=== PATIENT | male | born 1975 | race Caucasian/White ===

== ENCOUNTER 2019-12-07 14:55 | Outpatient (REF) | payer OTHER, SELFPAY ==
[2019-12-07 16:04] LABS: MANUAL DIFF FLAG NO
[2019-12-07 16:07] LABS: Basophils Absolute Auto 0.1 X10*3/uL (0.0-0.2); Basophils Percent Auto 0.6 % (0-2); Eosinophils Absolute Auto 0.2 X10*3/uL (0.0-0.4); Hematocrit 45.7 % (42-52); Hemoglobin 15.9 g/dl (14.0-18.0); Imm Gran Abs Auto 0.03 X10*3/uL (0.00-0.03); Imm Gran Pct Auto 0.3 % (0.0-0.4); Lymphocytes Absolute Auto 4.1 X10*3/uL (1.2-4.9); Lymphocytes Percent Auto 38.7 % (20-40); Mean Corpuscular HGB Conc 34.8 g/dl (31.0-36.0); Mean Corpuscular Hemoglobin 33.1 pg (27.0-33.0); Mean Platelet Volume 9.8 fL (9.4-12.4); Monocytes Absolute Auto 0.9 X10*3/uL (0.1-1.2); Monocytes Percent Auto 8.1 % (2-11); Neutrophils Absolute Auto 5.3 X10*3/uL (2.0-8.3); Neutrophils Percent Auto 50.3 % (45-73); Platelet Count 259 X10*3/uL (160-400); Red Blood Count 4.81 X10*6/uL (4.60-5.80); Red Cell Distribution Width 12.2 % (11.0-16.0); White Blood Count 10.6 X10*3/uL (4.8-10.8)
[2019-12-07 16:29] LABS: Prothrombin Time 11.9 SEC (10.8-13.0)
[2019-12-07 16:42] LABS: Alanine Aminotransferase 74 U/L (0-40); Albumin Level 4.5 g/dL (3.5-5.0); Alkaline Phosphatase 65 U/L (39-117); Aspartate Amino Transferase 33 U/L (5-37); Bilirubin Direct < 0.2 mg/dL (0.0-0.5); Bilirubin Total 0.3 mg/dL (0.0-1.0); Total Protein 7.6 g/dL (6.5-8.0)
[2019-12-13 12:42] LABS: FIB-ALT 65 U/L (9-46); FIB-Alpha-2-Macroglobulin 247 mg/dL (106-279); FIB-Apolipoprotein A1 136 mg/dL (94-176); FIB-GGT 41 U/L (3-95); FIB-Haptoglobin 124 mg/dL (43-212); FIB-Total Bilirubin 0.2 mg/dL (0.2-1.2); Liver Fibrosis Score 0.19; Liver Fibrosis Stage F0; Nec Inflam Act Grade A1; Nec Inflam Act Score 0.35
== END 2019-12-07 14:56 | disposition home or self-care (01) ==
LOC: HO.LAB 14:55
PROVIDERS: PCP Internal Medicine; Visit Provider Internal Medicine
DX: K76.0 Fatty (change of) liver, not elsewhere classified (principal); R94.5 Abnormal results of liver function studies
CPT/HCPCS: 36415; 80076; 81596; 85025; 85610

== ENCOUNTER 2020-08-10 12:53 | Emergency (ER) | payer OTHER, SELFPAY ==
--- NOTE | 2020-08-10 | ECG_ITS ---
Test Reason : CP Blood Pressure : / mmHG Vent. Rate : 061 BPM Atrial Rate : 061 BPM P-R Int : 174 ms QRS Dur : 108 ms QT Int : 384 ms P-R-T Axes : 029 -70 020 degrees QTc Int : 386 ms Normal sinus rhythm Left axis deviation Otherwise normal ECG No previous ECGs available Referred By: Generic ED Physician Electronically Signed By:DAY VIDALES
--- NOTE | ~2020-08-10 | XR_ITS ---
EXAMINATION: XR CHEST CLINICAL INFORMATION: Chest pain COMPARISON: 11/03/2017 TECHNIQUE: 2 views of the chest were obtained. FINDINGS: No significant abnormality is noted involving the heart, lungs, mediastinum, bony thorax or soft tissues. XR/XR chest 2V IMPRESSION: Unremarkable examination.
[2020-08-10 13:16] VITALS: BP 136/83; PULSE 79; RESP 18; TEMP 36.6; O2SAT 97; BMI 30.9
[2020-08-10 15:03] VITALS: BP 136/83; PULSE 69; RESP 18
--- NOTE | 2020-08-10 15:32 | ED.CHESTPAIN ---
HPI - Chest Pain General Chief Complaint: Chest Pain Stated Complaint: chest pain Time Seen by Provider: 08/10/20 14:55 Source: patient Mode of arrival: ambulatory Limitations: no limitations History of Present Illness HPI narrative: 45-year-old male with a past medical history of fatty liver here with complaints of intermittent chest pain for the last 1 month. He tells me these symptoms occur with exertion our nurses stated with diaphoresis, dizziness, nausea. They do resolve with rest after lasting approximately 5 minutes. Today he had an episode while mowing the lawn and became concerned and brought himself into the emergency department. No recent travel, no sick contact, no leg swelling or pain. No family history of sudden cardiac . Receive 2nd COVID vaccine 07/04/2020 Related Data Allergies Allergy/AdvReac Type Severity Reaction Status Date / Time No Known Allergies Allergy Unverified 11/15/19 16:12 [No Known Allergies*] Review of Systems Review of Systems: Yes all other systems are reviewed and are negative Constitutional: Constitutional: Reports no additional constitutional complaints, Denies body ache(s), Denies chills, Denies fever(s), Denies headache(s) and Denies weakness Comments: diaphoresis Eyes: Eyes: Reports no additional eye complaints and Denies change in vision ENT: Reports system reviewed and no additional complaints, except as documented, Denies dizziness, Denies headache(s), Denies nasal congestion, Denies nasal discharge and Denies neck pain Cardiovascular: Cardiovascular: Reports no additional cardiovascular complaints, Reports chest pain, Denies leg edema and Reports dyspnea Respiratory: Respiratory: Reports no additional respiratory complaints, Denies cough and Reports dyspnea Gastrointestinal: Gastrointestinal: Reports no additional gastrointestinal complaints, Denies abdominal pain, Denies diarrhea, Reports nausea and Denies vomiting Genitourinary: Genitourinary: Denies urinary incontinence Musculoskeletal: Musculoskeletal: Reports no additional musculoskeletal complaints, Denies back pain, Denies arthralgias, Denies joint swelling, Denies neck pain, Denies numbness and Denies tingling Integumentary/Breasts: Skin/Breast: Reports system reviewed and no additional complaints, except as docu and Denies rash Neurologic: Reports system reviewed and no additional complaints, except as documented, Denies Abnormal speech present, Denies dizziness, Denies headache(s), Denies numbness, Denies tingling and Denies weakness PMFSH Past Medical History Attestation statement: The following information was validated with the patient. Source: old records reviewed and nursing notes reviewed Medical History Fatty liver Social History Social History Advance Directives: No Advance Directives Information Provided: Yes Physical Exam Vital Signs: Vital Signs: Last Vital Signs Temp 97.8 F 08/10/20 17:40 Pulse 67 08/10/20 17:40 Resp 14 08/10/20 17:40 BP 141/92 H 08/10/20 17:40 Pulse Ox 98 08/10/20 17:40 Body Mass Index 30.9 Const: General: cooperative, healthy appearing, comfortable and no acute distress Orientation/consciousness: patient oriented x3 Limitations: no limitations HENMT: Head: Yes normal to inspection Ears: hearing grossly normal bilaterally General nose exam: Normal external nose present Face and sinus: Yes normal facial exam Mouth: Normal oral and palatal mucosa present Throat: Yes posterior oropharynx normal Eyes: General: appearance normal, both eyes and all related structures Pupils: Equal, round and reactive pupils present Neck: Neck: Yes normal visual inspection Chest: Chest palpation & inspection: normal inspection of the chest Resp: Effort & Inspection: normal respiratory effort Auscultation: clear to auscultation bilaterally Cardio: Rate: regular rate Rhythm: regular rhythm Peripheral pulses: Peripheral pulses 2+ throughout GI: Inspection: Yes normal to inspection Palpation (GI): Soft to palpation and nontender Auscultation: normal bowel sounds Back/Spine/Pelvis: Thoracic/Lumbar Spine: thoracic and lumbar spine normal to inspection Skin: General skin exam: no rashes or lesions noted Neuro: General: patient oriented x3, no focal motor deficits and normal sensation to monofilament Cranial nerves: Yes Equal, round and reactive pupils present Cognition (Neuro): normal cognition Speech: No Abnormal speech present Gait exam (Neuro): Normal gait present Motor exam (neuro): 5/5 motor strength present throughout Extrem: General: Yes normal to inspection, Yes no pedal edema and Yes no calf tenderness Course Course Course Narrative: 45-year-old male here with intermittent chest pain which occurs with exertion and is associated with diaphoresis, dizziness, nausea and shortness of breath and resolved with rest. Had episode today that occurred while mowing the lawn. No symptoms here on arrival. Will check chest x-ray, EKG and labs. 1715-labs show mildly elevated troponin. EKG shows no ischemic changes. Chest x-ray and other labs are unremarkable. Plan for repeat 3 hour troponin. 1900-2nd troponin delta. Discussed case with Dr Gunn. Will recommend cardiology follow-up for stress test. No need for admission as asymptomatic here with unremarkable EKG and unchanged troponin. Reviewed worrisome signs and symptoms and when to return to the emergency department. Comfortable discharge home. MDM - Chest Pain MDM Narrative Medical decision making narrative: ACS Differential Diagnosis Differential diagnosis: Likely atypical chest pain Medical Records Data Attestation: I reviewed the patient's medical records. Lab Data Attestation: I reviewed the patient's lab results. Result diagrams: 08/10/20 15:36 08/10/20 16:28 Labs: Lab Results 08/10/20 08/10/20 08/10/20 Range/Units 15:36 15:36 16:28 WBC 10.5 (4.8-10.8) X10*3/uL RBC 4.96 (4.60-5.80) X10*6/uL Hgb 16.5 (14.0-18.0) g/dl Hct 46.8 (42-52) % MCV 94.4 (80-98) fL MCH 33.3 H (27.0-33.0) pg MCHC 35.3 (31.0-36.0) g/dl RDW 12.7 (11.0-16.0) % Plt Count 261 (160-400) X10*3/uL MPV 9.4 (9.4-12.4) fL Immature Gran % (Auto) 0.4 (0.0-0.4) % Neut % (Auto) 43.5 L (45-73) % Lymph % (Auto) 43.3 H (20-40) % Gillespie % (Auto) 8.9 (2-11) % Eos % (Auto) 3.1 (0-4) % Baso % (Auto) 0.8 (0-2) % Lymph # (Auto) 4.6 (1.2-4.9) X10*3/uL Gillespie # (Auto) 0.9 (0.1-1.2) X10*3/uL Eos # (Auto) 0.3 (0.0-0.4) X10*3/uL Baso # (Auto) 0.1 (0.0-0.2) X10*3/uL Abs Immat Gran (auto) 0.04 H (0.00-0.03) X10*3/uL Absolute Neuts (auto) 4.6 (2.0-8.3) X10*3/uL Absolute Nucleated RBC 0.000 (0.0-0.012) X10*3/uL Nucleated RBC % (auto) 0.0 (0.0-0.2) /100WBC Sodium 142 (135-145) mmol/L Potassium 3.9 (3.3-5.1) mmol/L Chloride 106 (96-108) mmol/L Carbon Dioxide 28 (22-29) mmol/L Anion Gap 12 (12-20) BUN 11 (9-16) mg/dL Creatinine 0.75 (0.5-1.4) mg/dL Estim Creat Clear Calc 122.4 Estimated GFR > 60 Random Glucose 88 (60-115) mg/dL Calcium 9.2 (8.4-10.2) mg/dL Total Bilirubin 0.6 (0.0-1.0) mg/dL Direct Bilirubin 0.2 (0.0-0.5) mg/dL AST 57 H (5-37) U/L ALT 130 H (0-40) U/L Alkaline Phosphatase 69 (39-117) U/L Troponin I High Sens 30.4 (<3.5-35.0) ng/L Total Protein 7.2 (6.5-8.0) g/dL Albumin 4.2 (3.5-5.0) g/dL 08/10/20 Range/Units 18:31 WBC (4.8-10.8) X10*3/uL RBC (4.60-5.80) X10*6/uL Hgb (14.0-18.0) g/dl Hct (42-52) % MCV (80-98) fL MCH (27.0-33.0) pg MCHC (31.0-36.0) g/dl RDW (11.0-16.0) % Plt Count (160-400) X10*3/uL MPV (9.4-12.4) fL Immature Gran % (Auto) (0.0-0.4) % Neut % (Auto) (45-73) % Lymph % (Auto) (20-40) % Gillespie % (Auto) (2-11) % Eos % (Auto) (0-4) % Baso % (Auto) (0-2) % Lymph # (Auto) (1.2-4.9) X10*3/uL Gillespie # (Auto) (0.1-1.2) X10*3/uL Eos # (Auto) (0.0-0.4) X10*3/uL Baso # (Auto) (0.0-0.2) X10*3/uL Abs Immat Gran (auto) (0.00-0.03) X10*3/uL Absolute Neuts (auto) (2.0-8.3) X10*3/uL Absolute Nucleated RBC (0.0-0.012) X10*3/uL Nucleated RBC % (auto) (0.0-0.2) /100WBC Sodium (135-145) mmol/L Potassium (3.3-5.1) mmol/L Chloride (96-108) mmol/L Carbon Dioxide (22-29) mmol/L Anion Gap (12-20) BUN (9-16) mg/dL Creatinine (0.5-1.4) mg/dL Estim Creat Clear Calc Estimated GFR Random Glucose (60-115) mg/dL Calcium (8.4-10.2) mg/dL Total Bilirubin (0.0-1.0) mg/dL Direct Bilirubin (0.0-0.5) mg/dL AST (5-37) U/L ALT (0-40) U/L Alkaline Phosphatase (39-117) U/L Troponin I High Sens 27.0 (<3.5-35.0) ng/L Total Protein (6.5-8.0) g/dL Albumin (3.5-5.0) g/dL Imaging Data Chest x-ray: Attestation: I personally reviewed and interpreted this imaging study as follows: Radiologist's impression: EXAMINATION: XR CHEST CLINICAL INFORMATION: Chest pain COMPARISON: 11/03/2017 TECHNIQUE: 2 views of the chest were obtained. FINDINGS: No significant abnormality is noted involving the heart, lungs, mediastinum, bony thorax or soft tissues. XR/XR chest 2V IMPRESSION: Unremarkable examination. ECG Data ECG #1: Attestation: I personally reviewed and interpreted this ECG as follows: ECG interpretation date: 08/10/20 ECG interpretation time: 13:23 Interpretation: NSR with rate 61, normal pr, normal qrs, normal qtc Discharge Plan Discharge Clinical Impression: Atypical chest pain Patient Disposition: Home, Self-Care Instructions: Chest Pain (ED) Additional Instructions: Call Cardiology tomorrow for follow-up appointment. You need outpatient stress test done. Your EKG, chest x-ray and lab work all looks good today Referrals: Anjum Blunt MD [Physician] - 2 days
[2020-08-10 15:40] LABS: MANUAL DIFF FLAG NO
[2020-08-10 15:44] LABS: Basophils Absolute Auto 0.1 X10*3/uL (0.0-0.2); Basophils Percent Auto 0.8 % (0-2); Eosinophils Absolute Auto 0.3 X10*3/uL (0.0-0.4); Eosinophils Percent Auto 3.1 % (0-4); Hematocrit 46.8 % (42-52); Hemoglobin 16.5 g/dl (14.0-18.0); Imm Gran Abs Auto 0.04 X10*3/uL (0.00-0.03); Imm Gran Pct Auto 0.4 % (0.0-0.4); Lymphocytes Absolute Auto 4.6 X10*3/uL (1.2-4.9); Lymphocytes Percent Auto 43.3 % (20-40); Mean Corpuscular HGB Conc 35.3 g/dl (31.0-36.0); Mean Corpuscular Hemoglobin 33.3 pg (27.0-33.0); Mean Corpuscular Volume 94.4 fL (80-98); Mean Platelet Volume 9.4 fL (9.4-12.4); Monocytes Absolute Auto 0.9 X10*3/uL (0.1-1.2); Monocytes Percent Auto 8.9 % (2-11); Neutrophils Absolute Auto 4.6 X10*3/uL (2.0-8.3); Neutrophils Percent Auto 43.5 % (45-73); Platelet Count 261 X10*3/uL (160-400); Red Blood Count 4.96 X10*6/uL (4.60-5.80); Red Cell Distribution Width 12.7 % (11.0-16.0); White Blood Count 10.5 X10*3/uL (4.8-10.8)
[2020-08-10 16:21] LABS: Troponin-I High Sensitivity 30.4 ng/L (<3.5-35.0)
[2020-08-10 17:01] LABS: Alanine Aminotransferase 130 U/L (0-40); Albumin Level 4.2 g/dL (3.5-5.0); Alkaline Phosphatase 69 U/L (39-117); Anion Gap 12 (12-20); Aspartate Amino Transferase 57 U/L (5-37); Bilirubin Direct 0.2 mg/dL (0.0-0.5); Bilirubin Total 0.6 mg/dL (0.0-1.0); Blood Urea Nitrogen 11 mg/dL (9-16); Calcium 9.2 mg/dL (8.4-10.2); Carbon Dioxide 28 mmol/L (22-29); Chloride 106 mmol/L (96-108); Creatinine Clr Calc Pharmacy 122.4; Estimated Glomerular Filt Rate > 60; Glucose Random 88 mg/dL (60-115); Potassium 3.9 mmol/L (3.3-5.1); Sodium 142 mmol/L (135-145); Total Protein 7.2 g/dL (6.5-8.0)
[2020-08-10 17:40] VITALS: BP 141/92; PULSE 67; RESP 14; TEMP 36.6; O2SAT 98
[2020-08-10 19:20] VITALS: BP 130/88; PULSE 61; RESP 15; TEMP 36.9; O2SAT 97
== END 2020-08-10 19:51 | disposition home or self-care (01) ==
PROVIDERS: Nurse Practitioner Family; Emergency Provider Emergency Medicine Emergency Medical Services; PCP Internal Medicine
DX: R07.89 Other chest pain (principal)
CPT/HCPCS: 36415; 71046; 80048; 80076; 84484; 85025; 93005; 99283; 99284

== ENCOUNTER → 2020-09-03 13:51 | Outpatient (BNVA) | payer OTHER, SELFPAY | PROVIDERS: PCP Internal Medicine; Referring Provider Internal Medicine; Visit Provider Internal Medicine Cardiovascular Disease | DX: R07.9 Chest pain, unspecified (principal) | CPT/HCPCS: 99202 ==

== ENCOUNTER → 2020-09-04 09:14 | Outpatient (REF) | payer OTHER, SELFPAY ==
--- NOTE | 2020-09-04 09:19 | CA_ITS ---
Acquisition Time: 2020-09-04 09:20:56 Total Exercise Time: 00:12:00 Test Indications: CHEST PAIN Medications: METOPROLOL Protocol: BREANNA Max HR: 151 BPM 85% of Pred: 177 BPM Max BP: 172/086 mmHG Max Work Load: 13.4 METS Exercise stress test with exercise 12 min of Breanna protocol ( while jogging all of stage 4) achieving 85% MPHR, without anginal symptoms, with 3 isolated PVCs near peak exercise, with normotensive response to exercise, without EKG changes meeting criteria for ischemia. Test reviewed with Dr Blunt. Referred By: Anjum Blunt Overread By: MARA CAVANAUGH
== END ==
LOC: HO.CARD 09:14
PROVIDERS: PCP Internal Medicine; Visit Provider Internal Medicine Cardiovascular Disease
DX: R07.9 Chest pain, unspecified (principal)
CPT/HCPCS: 93017

== ENCOUNTER → 2020-10-15 09:12 | Outpatient (REF) | payer OTHER, SELFPAY ==
--- NOTE | 2020-10-15 09:18 | CA_ITS ---
Transthoracic Echocardiogram Patient (Last, First, Middle): Leonel Abbott Manuel Gender: Male Date of : 1975 Age: 45 Procedure Date: 10/15/2020 Procedure Type: Transthoracic Echocardiogram Location: OP Height: 162.56 cm Weight: 79.38 kg BSA: 1.85 m2 Heart Rate: bpm BP: 134 / 80 mmHg External Grinder: Referring MD: Anjum Blunt MD Symptoms: R07.9 - Chest pain, unspecified Study Quality: Good ECG Rhythm: Sinus Conclusions: - The left ventricular systolic function is normal. The calculated ejection fraction is 59% by biplane method. - No obvious valvular pathology seen on this study. Findings Left Ventricle Normal left ventricular cavity size. There is mildly increased left ventricular wall thickness. The left ventricular systolic function is normal. The calculated ejection fraction is 59% by biplane method. There is no evidence of regional wall motion abnormalities. Diastolic function is normal for age. Right Ventricle Normal right ventricular cavity size and systolic function. Atria Both atria are normal in size. Aortic Valve There is a normal trileaflet aortic valve. There is no aortic valve stenosis. There is trace (trivial) aortic valve regurgitation. Mitral Valve The mitral valve appears normal. There is trace mitral valve regurgitation. There is no mitral valve stenosis. Pulmonic Valve The pulmonic valve is likely normal. There is trace pulmonic valve regurgitation. Tricuspid Valve Normal tricuspid valve structure. There is trace tricuspid valve regurgitation. The pulmonary artery systolic pressure is normal. Great Vessels The aortic annulus, sinuses of valsalva, and asc aorta are normal in size. Venous The inferior vena cava is normal in size and collapses greater than 50% with inspiration. Pericardium/Pleural There is no evidence of pericardial effusion. Prior Study Comparison No prior study available for comparison. Recommendations, Care & Conclusions No obvious valvular pathology seen on this study. Measurements 2D Linear Measurements IVSd: 1.11 0.6-0.9/0.6-1.0 cm LVIDd: 4.54 3.9-5.3/4.2-5.9 cm LVIDd Index: 2.45 2.4-3.2/2.2-3.1 cm/m2 LVIDs: 2.81 2.0-3.6 cm LVPWd: 1.06 0.7-1.1 cm Ao Root: 2.90 2.1-3.5 cm LA Diam: 4.40 2.7-3.8/3.0-4.0 cm LAIDs Index: 2.38 1.5-2.3 cm/m2 LV Mass: 216.88 67-162/88-224 g LV Mass Index: 117.23 43-95/49-115 g/m2 LVOT Diam: 2.00 3.0+(-)1.3 cm 2D Systolic Function EF 4C: 58.90 >55% EF 2C: 63.10 >55% EF BiP: 59.20 >55% Mitral Valve MV Pk E: 0.87 MV PK A: 0.60 MV Decel Time: 180.00 E/A: 1.50 E'Lateral: 14.60 E'Medial: 8.16 E/E' Med: 10.70 E/E' Lat: 6.00 PHT: 53.00 MVA PHT: 4.15 Decel Trinity: 4.84 Aortic Valve AoV Pk Tej: 1.48 AoV Mn Tej: 0.97 AoV VTI: 0.32 AoV Pk Grad: 9.00 Aov Mn Grad: 4.00 DANIE Cont.VTI: 2.23 LVOT LVOT Pk Tej: 1.00 LVOT Mn Tej: 0.71 LVOT VTI: 0.22 LVOT Pk Grad: 4.00 LVOT Mn Grad: 2.00 LVOT Diam: 2.00 LVOT Area: 3.14 Diastolic Function MV Pk E: 0.87 MV Pk A: 0.60 E/A: 1.50 E'Medial: 8.16 E/E' Med: 10.70 E' Laterial: 14.60 E/E' Lat: 6.00 Right Ventricle TAPSE (mm): 24.00 TVS' Tej: 12.00 Tricuspid Valve TR Pk Tej: 2.23 TR Pk Grad: 20.00 RA Press: 3.00 RVSP: 23.00 Great Vessels Aorta Ao Root-2D: 2.90 2.0-3.7 cm Ao Asc: 3.00 2.1-3.4 cm Pulmonary Valve PV Pk Tej: 1.05 Peak PV Grad: 4.00 Updated in Other Vendor System with Status of Final Monico Beatty MD electronically signed on 10/16/2020 12:31:02 PM with status of Final
== END ==
LOC: HO.CARD 09:12
PROVIDERS: PCP Internal Medicine; Visit Provider Internal Medicine Cardiovascular Disease
DX: R07.9 Chest pain, unspecified (principal)
CPT/HCPCS: 93306

== ENCOUNTER 2021-05-25 11:27 | Emergency (ER) | payer OTHER, SELFPAY ==
[2021-05-25 12:59] VITALS: BP 143/66; PULSE 59; RESP 18; O2SAT 100; BMI 29.1
--- NOTE | 2021-05-25 13:09 | ED.MALEGU ---
HPI - Male Genitourinary General Chief complaint: Urogenital-Male Stated complaint: PAINFULL UPON URINATION Time Seen by Provider: 05/25/21 13:02 Source: patient Mode of arrival: ambulatory Limitations: no limitations History of Present Illness HPI Narrative: Patient is a 46 year old male presenting to the emergency department today with painful urination. Patient states that approximately 1 month ago, he was seen for urinary issues and was told he had an infection and took some pills for a little while. Patient states that now he is having pain with urination. Patient denies any dizziness, lightheadedness, abdominal pain, nausea, vomiting, fever, chills, blurry vision, double vision, loss of vision, chest pain, difficulty breathing, shortness of breath, back pain, night sweats, increased urinary frequency, increased urinary urgency, blood in his urine or stool, syncope or a near syncopal episode, recent trauma or falls, bowel incontinence, bladder incontinence, bowel retention, bladder retention, or any other complaints at this time. MD Complaint: dysuria Onset (ago): day(s) Duration: constant Severity: mild Severity scale (1-10): 3 Quality: sharp Relieving factors: none Exacerbating factors: none Associated symptoms: Reports denies other symptoms Related Data Sexually active: No Home Medications Medication Instructions Recorded Confirmed ursodiol 300 mg capsule 600 mg PO BID 09/03/20 09/03/20 Previous Rx's Medication Instructions Recorded metoprolol succinate 25 mg 25 mg PO DAILY 90 Days #90 tab 09/25/20 tablet,extended release 24 hr cephalexin 500 mg capsule 500 mg PO Q6H 7 Days #28 cap 05/25/21 Allergies Allergy/AdvReac Type Severity Reaction Status Date / Time No Known Allergies Allergy Unverified 11/15/19 16:12 [No Known Allergies*] Review of Systems Constitutional: Constitutional: Reports no additional constitutional complaints, Denies chills, Denies fever(s) and Denies night sweats Eyes: Eyes: Reports no additional eye complaints, Denies blurry vision, Denies change in vision, Denies diplopia, Denies eye discharge, Denies loss of vision and Denies eye pain ENT: Denies dizziness Cardiovascular: Cardiovascular: Reports no additional cardiovascular complaints, Denies chest pain, Denies lightheadedness, Denies Loss of Consciousness and Denies dyspnea Respiratory: Respiratory: Reports no additional respiratory complaints and Denies dyspnea Gastrointestinal: Gastrointestinal: Reports no additional gastrointestinal complaints, Denies abdominal pain, Denies melena, Denies hematochezia, Denies change in bowel habits and Denies change in stool character Genitourinary: Genitourinary: Reports no additional male genitourinary complaints, Denies hematuria, Denies oliguria, Denies difficulty urinating, Reports dysuria, Denies urinary frequency, Denies urinary hesitancy, Denies urinary incontinence and Denies urinary urgency Musculoskeletal: Musculoskeletal: Reports no additional musculoskeletal complaints, Denies numbness and Denies tingling Neurologic: Denies dizziness, Denies loss of vision, Denies numbness and Denies tingling Psychiatric: Psychiatric: Reports no additional psychiatric complaints Endocrine: Endocrine: Reports no additional endocrine complaints Hematologic/Lymphatic: Hematologic/Lymphatic: Reports no additional hematologic/lymphatic complaints Allergic/Immunologic: Allergic/Immunologic: Reports no additional allergic/immunologic complaints PMFSH Past Medical History Attestation statement: The following information was validated with the patient. Source: old records reviewed Medical History Fatty liver Surgical History Hx of knee surgery Family History Family History Father HTN (hypertension) Mother HTN (hypertension) Social History Social History Patient Tobacco Use Status: Never used Tobacco Advance Directives: No Advance Directives Information Provided: No Physical Exam Vital Signs: Vital Signs: Last Vital Signs Pulse 59 05/25/21 12:59 Resp 18 05/25/21 12:59 BP 143/66 H 05/25/21 12:59 Pulse Ox 100 05/25/21 12:59 BMI result Body Mass Index 29.1 Const: General: cooperative, no acute distress, alert and awake Nutritional Appearance: well nourished Orientation/consciousness: patient oriented x3 Limitations: no limitations HEENT: Head: Yes normal to inspection and Yes atraumatic Ears: hearing grossly normal bilaterally and external ears normal General nose exam: Normal external nose present, no nasal discharge noted and no epistaxis Face and sinus: Yes normal facial exam, No abrasion and No laceration Mouth: Normal oral and palatal mucosa present, no drooling and no muffled voice Eyes: General: appearance normal, both eyes and all related structures Periorbital: periorbital findings normal Eyelids: Yes eyelids normal Conjunctivae: conjunctivae normal Pupils: Equal, round and reactive pupils present EOM: EOMs intact bilaterally Neck: Neck: Yes normal visual inspection, Yes full ROM and Yes no lymphadenopathy Chest: Chest palpation & inspection: normal inspection of the chest Resp: Effort & Inspection: normal respiratory effort and able to speak in complete sentences Auscultation: clear to auscultation bilaterally Cardio: Rate: regular rate Rhythm: regular rhythm GI: Inspection: Yes normal to inspection : Male General Exam: Yes normal external exam Penis: normal penis Neuro: General: patient oriented x3 and moves all extremities Cranial nerves: Yes Equal, round and reactive pupils present Cognition (Neuro): normal cognition Motor exam (neuro): 5/5 motor strength present throughout Sensory Exam: Normal double simultaneous stimulation for sensation Coordination: [id number] test normal Extrem: General: Yes normal to inspection, Yes full ROM and Yes capillary refill normal Psych: Appearance: grossly normal Mental Status: mental status grossly normal Affect: normal affect Attitude: cooperative Thought process: Normal thought process present Thought content: Normal thought content present Insight: Good insight present (Psych) MDM - Male Genitourinary MDM Narrative Medical decision making narrative: Patient is a 46 year old male presenting to the emergency department today with painful urination. Patient's physical exam was unremarkable. Patient's urine showed an acute UTI. I explained my physical exam findings as well as all test results to the patient. I answered all questions asked by the patient. I stressed the importance of the patient taking his medication as prescribed. I stressed the importance of the patient following up with his primary care provider and a urologist. I stressed the importance of the patient returning to the emergency department immediately if his symptoms were to worsen or if he were to develop any dizziness, shortness of breath, difficulty breathing, chest pain, blurry vision, loss of vision, nausea, vomiting, abdominal pain, fever, chills, back pain, or any other complaints. Patient verbalized agreement and understanding with this treatment plan and discharge. Differential Diagnosis Differential diagnosis: Likely urinary tract infection Medical Records Attestation: I reviewed the patient's medical records. Lab Data Attestation: I reviewed the patient's lab results. Labs: Lab Results 05/25/21 Range/Units 13:07 Urine Color STRAW Urine Appearance CLEAR Urine pH 6.0 (5.0-8.0) Ur Specific [place] 1.015 (1.005-1.025) Urine Protein NEG (NEG-TRACE) MG/DL Urine Glucose (UA) NEG (NEG) MG/DL Urine Ketones NEG (NEG) MG/DL Urine Blood NEG (NEG) Urine Nitrite NEG (NEG) Ur Leukocyte Esterase TRACE H (NEG) Urine RBC 0 (0) /HPF Urine WBC 1-4 (0-4) /HPF Ur Squamous Epith Cells TRACE /LPF Urine Bacteria 1+ /LPF Discharge Plan Discharge Clinical Impression: Urinary tract infection Patient Disposition: Home, Self-Care Instructions: Urinary Tract Infection in Men (DC) Additional Instructions: Follow up with your primary care provider. Return to the emergency department immediately if your symptoms worsen or if you develop any dizziness, shortness of breath, difficulty breathing, chest pain, blurry vision, loss of vision, nausea, vomiting, abdominal pain, fever, chills, back pain, or any other complaints. Prescriptions: New cephalexin 500 mg capsule 500 mg PO Q6H 7 Days Qty: 28 0RF No Action metoprolol succinate 25 mg tablet extended release 24 hr 25 mg PO DAILY 90 Days Qty: 90 1RF ursodiol 300 mg capsule 600 mg PO BID 0RF Referrals: Pablo Gaston MD [Physician] - 2 days Patrick Moody III, MD [Primary Care Provider] - 2 days Interventions: ED Discharge Assessment Last Done: 05/25/21 13:56 Discharge Date/Time: 05/25/21 13:57 Print Language: Albanian
[2021-05-25 13:12] LABS: Appearance Urine CLEAR; Color Urine STRAW; Glucose Urine UA NEG (NEG); Leukocyte Esterase Urine TRACE (NEG); Nitrite Urine NEG (NEG); Specific Gravity - Urine 1.015 (1.005-1.025); UACC Culture Trigger YES; Urine Blood NEG (NEG); Urine Ketones NEG (NEG); Urine Protein NEG (NEG-TRACE)
[2021-05-25 13:26] LABS: Bacteria Urine 1+ /LPF; RBC Urine 0 /HPF (0); Squamous Epithelial Cell Urine TRACE /LPF
== END 2021-05-25 13:57 | disposition home or self-care (01) ==
PROVIDERS: Emergency Provider Emergency Medicine; PCP Internal Medicine
DX: N39.0 Urinary tract infection, site not specified (principal); R30.0 Dysuria
CPT/HCPCS: 81001; 87086; 87088; 87186; 99283; 99284

== ENCOUNTER 2021-05-29 08:57 | Outpatient (REF) | payer OTHER, SELFPAY ==
[2021-05-29 09:29] LABS: MANUAL DIFF FLAG NO
[2021-05-29 09:48] LABS: Basophils Absolute Auto 0.1 X10*3/uL (0.0-0.2); Basophils Percent Auto 0.9 % (0-2); Eosinophils Absolute Auto 0.3 X10*3/uL (0.0-0.4); Eosinophils Percent Auto 3.5 % (0-4); Hematocrit 44.1 % (42.0-52.0); Hemoglobin 15.5 g/dl (14.0-18.0); Imm Gran Abs Auto 0.04 X10*3/uL (0.00-0.03); Imm Gran Pct Auto 0.4 % (0.0-0.4); Lymphocytes Absolute Auto 4.2 X10*3/uL (1.2-4.9); Lymphocytes Percent Auto 45.1 % (20-40); Mean Corpuscular HGB Conc 35.1 g/dl (31.0-36.0); Mean Corpuscular Volume 93.8 fL (80.0-98.0); Mean Platelet Volume 9.1 fL (9.4-12.4); Monocytes Absolute Auto 0.7 X10*3/uL (0.1-1.2); Monocytes Percent Auto 7.3 % (2-11); Neutrophils Percent Auto 42.8 % (45-73); Platelet Count 256 X10*3/uL (160-400); Red Cell Distribution Width 12.6 % (11.0-16.0); White Blood Count 9.4 X10*3/uL (4.8-10.8)
[2021-05-29 09:53] LABS: Prothrombin Time 11.7 SEC (9.9-13.0)
[2021-05-29 10:27] LABS: Alanine Aminotransferase 110 U/L (0-40); Albumin Level 4.1 g/dL (3.5-5.0); Alkaline Phosphatase 60 U/L (39-117); Aspartate Amino Transferase 51 U/L (5-37); Bilirubin Direct 0.2 mg/dL (0.0-0.5); Bilirubin Total 0.6 mg/dL (0.0-1.0); Total Protein 7.2 g/dL (6.5-8.0)
[2021-06-04 18:17] LABS: FIB-ALT 92 U/L (9-46); FIB-Alpha-2-Macroglobulin 275 mg/dL (106-279); FIB-Apolipoprotein A1 145 mg/dL (94-176); FIB-GGT 48 U/L (3-95); FIB-Haptoglobin 149 mg/dL (43-212); FIB-Total Bilirubin 0.5 mg/dL (0.2-1.2); Liver Fibrosis Score 0.34; Liver Fibrosis Stage F1-F2; Nec Inflam Act Grade A2; Nec Inflam Act Score 0.55
== END 2021-05-29 08:58 | disposition home or self-care (01) ==
LOC: HO.LAB 08:57
PROVIDERS: PCP Internal Medicine; Visit Provider Internal Medicine
DX: R79.89 Other specified abnormal findings of blood chemistry (principal)
CPT/HCPCS: 36415; 80076; 81596; 85025; 85610

== ENCOUNTER 2021-06-18 06:51 | Outpatient (REF) | payer OTHER, SELFPAY ==
[2021-06-18 07:03] LABS: MANUAL DIFF FLAG NO
[2021-06-18 07:39] LABS: Basophils Absolute Auto 0.1 X10*3/uL (0.0-0.2); Basophils Percent Auto 1.9 % (0-2); Eosinophils Absolute Auto 0.3 X10*3/uL (0.0-0.4); Eosinophils Percent Auto 4.6 % (0-4); Hematocrit 47.7 % (42.0-52.0); Hemoglobin 16.5 g/dl (14.0-18.0); Imm Gran Abs Auto 0.02 X10*3/uL (0.00-0.03); Imm Gran Pct Auto 0.3 % (0.0-0.4); Lymphocytes Absolute Auto 2.6 X10*3/uL (1.2-4.9); Lymphocytes Percent Auto 37.7 % (20-40); Mean Corpuscular HGB Conc 34.6 g/dl (31.0-36.0); Mean Corpuscular Hemoglobin 32.7 pg (27.0-33.0); Mean Corpuscular Volume 94.6 fL (80.0-98.0); Mean Platelet Volume 9.3 fL (9.4-12.4); Monocytes Absolute Auto 0.8 X10*3/uL (0.1-1.2); Monocytes Percent Auto 12.2 % (2-11); Neutrophils Percent Auto 43.3 % (45-73); Platelet Count 282 X10*3/uL (160-400); Red Blood Count 5.04 X10*6/uL (4.60-5.80); Red Cell Distribution Width 12.3 % (11.0-16.0); White Blood Count 6.8 X10*3/uL (4.8-10.8)
[2021-06-18 07:44] LABS: Prothrombin Time 11.8 SEC (9.9-13.0)
[2021-06-18 07:46] LABS: Partial Thromboplastin Time 44.9 SEC (24.1-38.0)
[2021-06-18 08:04] LABS: Alanine Aminotransferase 120 U/L (0-40); Albumin Level 4.6 g/dL (3.5-5.0); Alkaline Phosphatase 67 U/L (39-117); Aspartate Amino Transferase 60 U/L (5-37); Bilirubin Direct 0.2 mg/dL (0.0-0.5); Bilirubin Total 0.5 mg/dL (0.0-1.0); Total Protein 8.1 g/dL (6.5-8.0)
== END 2021-06-18 06:52 | disposition home or self-care (01) ==
LOC: HO.LAB 06:51
PROVIDERS: PCP Internal Medicine; Visit Provider Internal Medicine
DX: K76.0 Fatty (change of) liver, not elsewhere classified (principal); R74.8 Abnormal levels of other serum enzymes
CPT/HCPCS: 36415; 80076; 85025; 85610; 85730

== ENCOUNTER 2021-06-25 07:03 | Day surgery (SDC) | payer OTHER, SELFPAY ==
[2021-06-25] VITALS (7 sets, daily range): BP systolic 102–115; BP diastolic 50–70; PULSE 50–74; RESP 16–18; TEMP 36.2–36.8; O2SAT 95–99; BMI 29.9
--- NOTE | ~2021-06-25 | US_ITS ---
EXAMINATION: US COMPLETE ABDOMEN WITH LIVER ELASTOGRAPHY CLINICAL INFORMATION: Elevated liver enzymes, fatty liver. COMPARISON: None. TECHNIQUE: Real-time imaging of the abdominal viscera. Noninvasive ultrasound liver fibrosis assessment is performed using Marina Elast[employer] point quantification shear wave elastography (2D-SWE) with a C5-2 MHz transducer. Multiple elastography samples are obtained. FINDINGS: PANCREAS: Most of the pancreas is obscured by overlying gas. ABDOMINAL AORTA: The proximal, middle, and distal aortic segments are normal in caliber. INFERIOR VENA CAVA: Visualized portions are normal. LIVER: The liver demonstrates normal size, contour and increased echogenicity. There is mild heterogeneity seen adjacent to the gallbladder likely focal fatty sparing. No focal lesion or intrahepatic biliary duct dilatation. The right lobe measures 17.1 cm in length. The left lobe measures 13.1 cm in length. Portal flow is hepatopedal. Shear wave liver elastography median stiffness is 1.93 m/s (reference: normal median stiffness is 1.3 m/s or less). IQR/median stiffness to assess sampling precision is 0.07 (reference: good quality data set is IQR/median stiffness of 0.15 or less). GALLBLADDER: Normal. The gallbladder is physiologically distended without evidence of stones, sludge, polyps, wall thickening or pericholecystic fluid. COMMON BILE DUCT: Normal in caliber measuring 0.25 cm in diameter. RIGHT KIDNEY: Normal. No hydronephrosis. No renal calculi or focal parenchymal lesions. The kidney measures 13.3 cm in maximum dimension. LEFT KIDNEY: Normal. No hydronephrosis. No renal calculi or focal parenchymal lesions. The kidney measures 11.6 cm in maximum dimension. SPLEEN: Normal. The spleen measures 9.8 cm in maximum dimension. FREE FLUID: None. US/US abdomen comp w elastography IMPRESSION: 1. Diffuse hepatic steatosis with mild hyperechoic and heterogeneous area adjacent to gallbladder likely focal fatty sparing. The pancreas is obscured by gas. Rest of the visualized ultrasound exam is unremarkable. 2. Liver elastography: Median liver stiffness 1.93 m/s corresponds to cACLD (suggestive). REFERENCE: Society of Radiologists in Ultrasound Liver Stiffness Thresholds (2020): LIVER STIFFNESS THRESHOLDS: *Liver Stiffness equal or less than 1.3 m/s: High probability of being normal. *Liver Stiffness less than 1.7 m/s: In the absence of other known clinical signs, rules out compensated advanced chronic liver disease. *Liver Stiffness 1.7-2.1 m/s: Suggestive of compensated advanced chronic liver disease but need further test for confirmation. *Liver Stiffness over 2.1 m/s: Rules in compensated advanced chronic liver disease. *Liver Stiffness over 2.4 m/s: Suggestive of clinically significant portal hypertension. QUALITY OF DATA SET: *IQR/Median value equal or less than 0.15 implies a quality data set. *IQR/Median value over 0.15 implies a poor quality data set. SIGNIFICANT CHANGE FROM PRIOR EXAM: Significant change if liver stiffness measurement is 10% or greater from prior exam. OTHER CONSIDERATIONS: The stage of liver fibrosis may be overestimated in the setting of acute hepatitis, liver inflammation, elevated liver function tests, hepatic vascular congestion, obstructive cholestasis, non-fasting state, and infiltrative diseases such as amyloidosis and lymphoma. In some patients with NAFLD, the liver stiffness thresholds for compensated advanced chronic liver disease may be lower. In causes other than viral hepatitis and NAFLD, liver stiffness thresholds are not well established.
--- NOTE | ~2021-06-25 | US_ITS ---
EXAMINATION: US GUIDED LIVER CORE BIOPSY CLINICAL INFORMATION: Elevated liver enzymes and fatty liver. COMPARISON: 05/15/2019 TECHNIQUE: Ultrasound-guided core liver biopsy. FINDINGS: Informed consent was obtained from the patient prior to the procedure. During this process, the procedure and potential alternatives were explained, along with the intended outcome and benefits. The risks of the procedure, as well as the risk of not doing the procedure, were discussed. The patient was given the opportunity to ask questions regarding the procedure and appeared competent to make medical decisions. A signed consent form which documents this discussion was placed in the medical record. Using sterile technique and ultrasound guidance a 17-gauge guiding needle was directed into the left lobe of liver from an anterior approach. Three 18-gauge core samples were then obtained from the left lobe of liver. Patient tolerated procedure without difficulty. No post biopsy subcapsular collection or hematoma appreciated. US/US biopsy liver IMPRESSION: Ultrasound-guided liver core biopsy as described.
[2021-06-25 08:07] LABS: MANUAL DIFF FLAG NO
[2021-06-25 08:09] LABS: Basophils Absolute Auto 0.1 X10*3/uL (0.0-0.2); Basophils Percent Auto 1.8 % (0-2); Eosinophils Absolute Auto 0.5 X10*3/uL (0.0-0.4); Hematocrit 43.6 % (42.0-52.0); Hemoglobin 15.1 g/dl (14.0-18.0); Imm Gran Abs Auto 0.02 X10*3/uL (0.00-0.03); Imm Gran Pct Auto 0.3 % (0.0-0.4); Lymphocytes Absolute Auto 2.3 X10*3/uL (1.2-4.9); Lymphocytes Percent Auto 33.2 % (20-40); Mean Corpuscular HGB Conc 34.6 g/dl (31.0-36.0); Mean Corpuscular Hemoglobin 32.6 pg (27.0-33.0); Mean Corpuscular Volume 94.2 fL (80.0-98.0); Monocytes Absolute Auto 0.7 X10*3/uL (0.1-1.2); Monocytes Percent Auto 9.9 % (2-11); Neutrophils Absolute Auto 3.3 x10*3/uL (2.0-8.3); Neutrophils Percent Auto 47.8 % (45-73); Platelet Count 243 X10*3/uL (160-400); Red Blood Count 4.63 X10*6/uL (4.60-5.80); Red Cell Distribution Width 12.3 % (11.0-16.0); White Blood Count 6.8 X10*3/uL (4.8-10.8)
[2021-06-25 08:15] LABS: INTERNATIONAL NORM RATIO 1.1 (0.9-1.1); Prothrombin Time 12.3 SEC (9.9-13.0)
[2021-06-25 08:17] LABS: Partial Thromboplastin Time 42.4 SEC (24.1-38.0)
[2021-06-25] MEDS: Lidocaine HCl 1 % MPF 5 ML VIAL SUBCUT (10:21)
== END 2021-06-25 13:10 | disposition home or self-care (01) ==
LOC: HO.SSS 07:04
PROVIDERS: PCP Internal Medicine; Visit Provider Radiology Diagnostic Radiology
DX: R74.8 Abnormal levels of other serum enzymes (principal); K75.81 Nonalcoholic steatohepatitis (NASH); K76.0 Fatty (change of) liver, not elsewhere classified; E78.00 Pure hypercholesterolemia, unspecified; J45.909 Unspecified asthma, uncomplicated
CPT/HCPCS: 36415; 47000; 76705; 76942; 76981; 85025; 85610; 85730; 88307; 88313; 99152; J2250; J3010

== ENCOUNTER → 2021-07-09 11:10 | Outpatient (BNVA) | payer OTHER, SELFPAY | PROVIDERS: PCP Internal Medicine | DX: R30.0 Dysuria (principal) | CPT/HCPCS: 99202 ==

== ENCOUNTER 2021-07-10 10:22 | Outpatient (REF) | payer OTHER, SELFPAY ==
[2021-07-10 12:02] LABS: Prostate Specific Antigen 0.83 ng/mL (<0.05-4.0)
== END 2021-07-10 10:23 | disposition home or self-care (01) ==
LOC: HO.LAB 10:22
PROVIDERS: PCP Internal Medicine
DX: Z12.5 Encounter for screening for malignant neoplasm of prostate (principal); R30.0 Dysuria
CPT/HCPCS: 36415; 84153

== ENCOUNTER 2021-09-22 06:03 | Outpatient (REF) | payer OTHER, SELFPAY ==
[2021-09-22 06:08] LABS: MANUAL DIFF FLAG NO
[2021-09-22 07:31] LABS: Basophils Absolute Auto 0.1 X10*3/uL (0.0-0.2); Basophils Percent Auto 0.8 % (0-2); Eosinophils Absolute Auto 0.4 X10*3/uL (0.0-0.4); Eosinophils Percent Auto 4.6 % (0-4); Hematocrit 44.9 % (42.0-52.0); Hemoglobin 15.8 g/dl (14.0-18.0); Imm Gran Abs Auto 0.03 X10*3/uL (0.00-0.03); Imm Gran Pct Auto 0.4 % (0.0-0.4); Lymphocytes Absolute Auto 3.4 X10*3/uL (1.2-4.9); Lymphocytes Percent Auto 41.6 % (20-40); Mean Corpuscular HGB Conc 35.2 g/dl (31.0-36.0); Mean Corpuscular Hemoglobin 32.8 pg (27.0-33.0); Mean Corpuscular Volume 93.3 fL (80.0-98.0); Mean Platelet Volume 10.1 fL (9.4-12.4); Monocytes Absolute Auto 0.6 X10*3/uL (0.1-1.2); Monocytes Percent Auto 6.9 % (2-11); Neutrophils Absolute Auto 3.8 x10*3/uL (2.0-8.3); Neutrophils Percent Auto 45.7 % (45-73); Platelet Count 256 X10*3/uL (160-400); Red Blood Count 4.81 X10*6/uL (4.60-5.80); Red Cell Distribution Width 12.4 % (11.0-16.0); White Blood Count 8.3 X10*3/uL (4.8-10.8)
[2021-09-22 07:36] LABS: Prothrombin Time 11.5 SEC (10.0-13.1)
[2021-09-22 08:02] LABS: Alanine Aminotransferase 73 U/L (0-40); Albumin Level 4.1 g/dL (3.5-5.0); Alkaline Phosphatase 65 U/L (39-117); Aspartate Amino Transferase 38 U/L (5-37); Bilirubin Direct 0.2 mg/dL (0.0-0.5); Bilirubin Total 0.8 mg/dL (0.0-1.0); Total Protein 7.3 g/dL (6.5-8.0)
== END 2021-09-22 06:04 | disposition home or self-care (01) ==
LOC: HO.LAB 06:03
PROVIDERS: PCP Internal Medicine; Visit Provider Internal Medicine
DX: K76.0 Fatty (change of) liver, not elsewhere classified (principal); K74.00 Hepatic fibrosis, unspecified
CPT/HCPCS: 36415; 80076; 85025; 85610

== ENCOUNTER 2021-10-22 10:06 | Outpatient (AMB) | payer OTHER, SELFPAY ==
--- NOTE | 2021-10-21 14:36 | MHC.OFFVIS ---
Intake Intake Visit Reasons: 3 month follow up psa Intake Note: Patient is present for psa/dysuria follow up Accompanied by: Self / Same As Patient Allergies No Known Allergies [No Known Allergies*] Allergy (Verified 03/03/22 14:39) HPI HPI Comments History of Present Illness Details Leonel is a pleasant male. He is a patient of Dr. Moody. He is seen for the following urologic conditions - recurring UTI Telemedicine evaluation 15 minute consultation [employer] rommel Video attempted Urinary urgency and frequency Prior therapy for urinary tract infection treated with Bactrim Pansensitive E coli PSA 07/19 0.8 PFSH Medical History (Updated 04/22/22 @ 12:43 by Krysten Rubio, RN) Hyperlipidemia Asthma Dysuria Fatty liver Surgical History (Updated 04/22/22 @ 12:43 by Krysten Rubio, CARLOS) H/O esophagogastroduodenoscopy Hx of knee surgery Family History Father HTN (hypertension) Mother HTN (hypertension) Social History Patient Tobacco Use Status: Never used Tobacco Review of Systems Const All systems reviewed & are unremarkable except as noted in HPI and below Reports no additional complaints Resp Reports no additional complaints GI Reports no additional complaints Reports as per HPI Musc Reports no additional complaints Physical Exam Telemedicine evaluation Appropriate responses Regular breathing rate and rhythm HEENT Head: Yes normal to inspection Ears: hearing grossly normal bilaterally Eyes General: appearance normal, both eyes and all related structures Neck Neck: Yes normal visual inspection Chest Chest palpation & inspection: normal inspection of the chest Resp Effort & Inspection: normal respiratory effort and able to speak in complete sentences Assessment & Plan Assessment & Plan (1) Hydronephrosis: Code(s): N13.30 - Unspecified hydronephrosis (2) Renal calculi: Code(s): N20.0 - Calculus of kidney Plan 12m imaging Patient Instructions: Imaging studies, laboratory and physical exam results were discussed and reviewed in detail. No major barriers to patient understanding were identified. An opportunity to ask questions regarding the treatment plan was provided. All questions were answered. The patient expressed understanding and agreement with the above treatment plan. The patient is aware they should contact our office by phone for worsening of their current condition or the appearance of new urologic symptoms. Compliance is encouraged with any medications and followup testing that is ordered. It is a privilege to participate in the urologic care of your patient. If you have any questions or concerns regarding treatment for the above conditions, or other urologic issues, please do not hesitate to contact me. The office telephone contact is [phone]. This note is constructed using voice recognition software. While every effort has been made to ensure accuracy laborer construction or leak gang errors may have been included. Yours sincerely, Dr Pablo Gaston MD, [facility] - Urology Providers of Expert, Compassionate Care for the Genitourinary System Telehealth Telehealth Location of provider rendering services: practice address Location of patient: address on file Patient Identification confirmed using: Name, : Yes Telehealth method: voice only Patient verbally consented to treatment: Yes Patient verbally consented to billing insurance company: Yes Patient informed of any privacy concerns related to visit: Yes Coding Level of Care Code Tele Est Pt Level 3 (72194) Diagnoses Hydronephrosis N13.30 Renal calculi N20.0
== END 2021-10-22 12:00 | disposition home or self-care (01) ==
PROVIDERS: PCP Internal Medicine; Visit Provider Urology
DX: N13.30 Unspecified hydronephrosis (principal); N20.0 Calculus of kidney
CPT/HCPCS: 99213; 99499

== ENCOUNTER → 2021-10-22 10:06 | Outpatient (BNVA) | payer OTHER, SELFPAY | PROVIDERS: PCP Internal Medicine; Visit Provider Urology ==

== ENCOUNTER 2021-12-27 04:50 | Emergency (ER) | payer OTHER, SELFPAY ==
--- NOTE | ~2021-12-27 | CT_ITS ---
EXAMINATION: CT ABDOMEN AND PELVIS WITHOUT CONTRAST CLINICAL INFORMATION: 46-year-old male with left flank pain. COMPARISON: Abdomen ultrasound from 05/15/2019 and 06/25/2021. TECHNIQUE: Multidetector volumetric imaging was performed from the superior aspect of the liver through the pubic symphysis. Sagittal and coronal reformatted images were obtained on the technologist's workstation. This CT examination was performed using dose optimization techniques as appropriate, variously including the following: *Automated exposure control *Adjustment of mA and/or kV according to patient size (this includes techniques or standardized protocols for targeted exams where dose is matched to indication/reason for exam; i.e. extremities or head) *Use of iterative reconstruction technique DLP: 512 mGy-cm FINDINGS: LUNG BASES: Normal. No pulmonary consolidation or pleural effusion. LIVER: Mild hepatomegaly. Liver parenchyma has attenuation of approximately 35 Hounsfield units, consistent with steatosis. No focal lesions are seen on these noncontrast images. GALLBLADDER AND BILIARY TREE: Gallbladder is without radiopaque stones, wall thickening or pericholecystic fluid. No dilated bile ducts. PANCREAS: Normal. No edema, pancreatic ductal dilatation or mass. SPLEEN: Normal. ADRENAL GLANDS: Normal. KIDNEYS AND URETERS: The right kidney appears to have a few punctate calyceal stones, as seen on the 0.6 mm axial images, but is otherwise unremarkable. The left kidney has a punctate calyceal stone in its lower pole and 0.4 cm stone in its upper pole. Mild hydronephrosis and moderate hydroureter are caused by a 0.3 x 0.5 x 0.7 stone in the distal ureter located just above the level of the ureterovesical junction. BLADDER: Normal. No calculi or wall thickening. BOWEL AND PERITONEUM: Stomach is unremarkable. No dilated loops of bowel. The appendix is normal. No overt bowel wall thickening or mesenteric fat stranding. No free fluid or pneumoperitoneum. ABDOMINAL WALL: Incidentally noted is a fat-containing left inguinal hernia. VASCULATURE: Unremarkable. LYMPH NODES: No pathologic sized lymph nodes in the abdomen or pelvis. No inguinal lymphadenopathy. PELVIC VISCERA: Unremarkable. SKELETAL: Bone islands of each femoral head. No suspicious bone lesions. Mild spondylosis of the visualized lower thoracic and lumbar spine. 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 CT/CT abdomen pelvis wo IV con IMPRESSION: * Left-sided hydronephrosis is caused by a 0.3 x 0.5 x 0.7 cm stone of the distal ureter. * Small, 0.4 cm stone is present in the upper pole of the left kidney. Also, there appear to be a few punctate calyceal stones. * Mild hepatomegaly and diffuse hepatic steatosis.
[2021-12-27 04:51] VITALS: BP 154/92; PULSE 55; RESP 15; TEMP 36.7; O2SAT 98; BMI 28.3
[2021-12-27 05:09] LABS: Basophils Absolute Auto 0.1 X10*3/uL (0.0-0.2); Basophils Percent Auto 0.9 % (0-2); Eosinophils Absolute Auto 0.2 X10*3/uL (0.0-0.4); Eosinophils Percent Auto 2.6 % (0-4); Hematocrit 45.5 % (42.0-52.0); Hemoglobin 16.2 g/dl (14.0-18.0); Imm Gran Abs Auto 0.02 X10*3/uL (0.00-0.03); Imm Gran Pct Auto 0.2 % (0.0-0.4); Lymphocytes Absolute Auto 3.5 X10*3/uL (1.2-4.9); Lymphocytes Percent Auto 37.7 % (20-40); MANUAL DIFF FLAG NO; Mean Corpuscular HGB Conc 35.6 g/dl (31.0-36.0); Mean Corpuscular Hemoglobin 32.7 pg (27.0-33.0); Mean Corpuscular Volume 91.9 fL (80.0-98.0); Mean Platelet Volume 9.2 fL (9.4-12.4); Monocytes Absolute Auto 0.7 X10*3/uL (0.1-1.2); Monocytes Percent Auto 7.3 % (2-11); Neutrophils Absolute Auto 4.8 x10*3/uL (2.0-8.3); Neutrophils Percent Auto 51.3 % (45-73); Platelet Count 283 X10*3/uL (160-400); Red Blood Count 4.95 X10*6/uL (4.60-5.80); Red Cell Distribution Width 12.4 % (11.0-16.0); White Blood Count 9.3 X10*3/uL (4.8-10.8)
[2021-12-27 05:10] LABS: Appearance Urine Clear; Color Urine Yellow; Glucose Urine UA Negative (Negative); Leukocyte Esterase Urine Negative (Negative); Nitrite Urine Negative (Negative); PH 5.5 (5.0-9.0); Urine Blood Negative (Negative); Urine Ketones Negative (Negative); Urine Protein Negative (Neg-Trace)
[2021-12-27 05:15] LABS: Bacteria Urine None Seen (None Seen); Hyaline Casts Urine 0-2 /LPF (0-2); RBC Urine 0-2 /HPF (0-2); Squamous Epithelial Cell Urine 0-2 /HPF (0-2); WBC Urine 0-5 /HPF (0-5)
[2021-12-27 05:31] LABS: Alanine Aminotransferase 77 U/L (0-40); Albumin Level 4.4 g/dL (3.5-5.0); Alkaline Phosphatase 73 U/L (39-117); Anion Gap 17 (12-20); Aspartate Amino Transferase 38 U/L (5-37); Bilirubin Total 0.4 mg/dL (0.0-1.0); Blood Urea Nitrogen 11 mg/dL (9-16); Calcium 9.7 mg/dL (8.4-10.2); Carbon Dioxide 21 mmol/L (22-29); Chloride 105 mmol/L (96-108); Creatinine Clr Calc Pharmacy 120.4; Estimated Glomerular Filt Rate > 60; Glucose Random 124 mg/dL (60-115); Lipase 326 U/L (8-78); Potassium 3.7 mmol/L (3.3-5.1); Sodium 139 mmol/L (135-145); Total Protein 7.8 g/dL (6.5-8.0)
[2021-12-27] MEDS: ondansetron HCL 4 MG/2 ML VIAL IVPUSH ×2 (06:27→07:06)
--- NOTE | 2021-12-27 07:04 | ED_ITS ---
HPI - Abdominal Pain General Chief Complaint: Abdominal Pain Stated Complaint: left flank pain, nausea Time Seen by Provider: 12/27/21 06:53 Source: patient Mode of arrival: ambulatory Limitations: no limitations History of Present Illness HPI narrative: Patient presented to the emergency department complaining of left flank pain and nausea since early this morning. Denies any fever chills diarrhea. He states t hat he has no comorbidity MD elicited complaint: abdominal pain and flank pain (left) Pertinent past history: none Onset (ago): hour(s) (5) Pain Consistency: constant Location: L flank Severity: moderate Radiation: none Migration to: LLQ Associated symptoms: nausea Related Data Home Medications Medication Instructions Recorded Confirmed ursodiol 300 mg capsule 600 mg PO BID 09/03/20 09/03/20 sulfamethoxazole 800 1 tab PO BID 07/09/21 mg-trimethoprim 160 mg tablet amoxicillin 875 mg-potassium 1 tab PO BID 10/21/21 clavulanate 125 mg tablet Previous Rx's Medication Instructions Recorded metoprolol succinate 25 mg 25 mg PO DAILY 90 days #90 tabs 09/25/20 tablet,extended release 24 hr cephalexin 500 mg capsule 500 mg PO Q6H 7 days #28 caps 05/25/21 ibuprofen 800 mg tablet 800 mg PO TID PRN pain #20 tabs 12/27/21 oxycodone 5 mg tablet 5 mg PO Q6H PRN pain #15 tabs 12/27/21 tamsulosin 0.4 mg capsule (Flomax) 0.4 mg PO DAILY #10 caps 12/27/21 Allergies Allergy/AdvReac Type Severity Reaction Status Date / Time No Known Allergies Allergy Verified 10/21/21 14:36 [No Known Allergies*] Review of Systems Review of Systems Yes all other systems are reviewed and are negative Constitutional: Reports no additional constitutional complaints Reports system reviewed and no additional complaints, except as documented Respiratory: Reports no additional respiratory complaints Gastrointestinal: Reports abdominal pain PMFSH Past Medical History Medical History Dysuria Fatty liver Surgical History Hx of knee surgery Family History Family History Father HTN (hypertension) Mother HTN (hypertension) Social History Social History Patient Tobacco Use Status: Never used Tobacco Advance Directives: No Physical Exam ED Vital Signs: Vital Signs - 24 hr 12/27/21 04:51 12/27/21 07:17 Temperature 98.1 F 97.7 F Pulse Rate 55 61 Respiratory Rate 15 18 Blood Pressure 154/92 H 143/97 H Pulse Oximetry 98 95 Oxygen Delivery Method Room Air Room Air BMI result Body Mass Index 28.3 Const General: cooperative, well developed, alert and awake Nutritional Appearance: average body habitus Orientation/consciousness: patient oriented x3 Limitations: no limitations HENMT Head: Yes normal to inspection General nose exam: Normal external nose present Face and sinus: Yes normal facial exam Mouth: Normal oral and palatal mucosa present Throat: Yes posterior oropharynx normal Neck Neck: Yes normal visual inspection and Yes full ROM Thyroid: Thyroid normal Chest Chest palpation & inspection: normal inspection of the chest Resp Effort & Inspection: normal respiratory effort Auscultation: clear to auscultation bilaterally Cardio Jugular venous distension: no JVD Rate: regular rate Rhythm: regular rhythm GI Inspection: Yes normal to inspection Palpation (GI): Soft to palpation and Tenderness to palpation present (GI) (left flank) Back/Spine/Pelvis Thoracic/Lumbar Spine: thoracic and lumbar spine normal to inspection Skin General skin exam: elasticity normal and turgor normal Lesions: no lesions Rashes: no rashes Neuro General: patient oriented x3 Cranial nerves: Yes CN's II-XII intact bilaterally Coordination: [id number] test normal Course Reevaluation(s) Reevaluation #1: Feeling better CT scan shows left distal ureteral stone Time: 08:53 Reevaluation #2: PAIN FREE WILL D/C HOME with urologist follow up Time: 09:27 MDM - Abdominal Pain Lab Data Result diagrams: 12/27/21 04:57 12/27/21 04:58 Labs: Lab Results 12/27/21 12/27/21 12/27/21 Range/Units 04:57 04:58 05:04 WBC 9.3 (4.8-10.8) X10*3/uL RBC 4.95 (4.60-5.80) X10*6/uL Hgb 16.2 (14.0-18.0) g/dl Hct 45.5 (42.0-52.0) % MCV 91.9 (80.0-98.0) fL MCH 32.7 (27.0-33.0) pg MCHC 35.6 (31.0-36.0) g/dl RDW 12.4 (11.0-16.0) % Plt Count 283 (160-400) X10*3/uL MPV 9.2 L (9.4-12.4) fL Immature Gran % (Auto) 0.2 (0.0-0.4) % Neut % (Auto) 51.3 (45-73) % Lymph % (Auto) 37.7 (20-40) % Richardson % (Auto) 7.3 (2-11) % Eos % (Auto) 2.6 (0-4) % Baso % (Auto) 0.9 (0-2) % Lymph # (Auto) 3.5 (1.2-4.9) X10*3/uL Richardson # (Auto) 0.7 (0.1-1.2) X10*3/uL Eos # (Auto) 0.2 (0.0-0.4) X10*3/uL Baso # (Auto) 0.1 (0.0-0.2) X10*3/uL Abs Immat Gran (auto) 0.02 (0.00-0.03) X10*3/uL Absolute Neuts (auto) 4.8 (2.0-8.3) x10*3/uL Absolute Nucleated RBC 0.000 (0.0-0.012) X10*3/uL Nucleated RBC % (auto) 0.0 (0.0-0.2) /100WBC Sodium 139 (135-145) mmol/L Potassium 3.7 (3.3-5.1) mmol/L Chloride 105 (96-108) mmol/L Carbon Dioxide 21 L (22-29) mmol/L Anion Gap 17 (12-20) BUN 11 (9-16) mg/dL Creatinine 0.75 (0.5-1.4) mg/dL Estim Creat Clear Calc 120.4 Estimated GFR > 60 Random Glucose 124 H D (60-115) mg/dL Calcium 9.7 (8.4-10.2) mg/dL Total Bilirubin 0.4 (0.0-1.0) mg/dL AST 38 H (5-37) U/L ALT 77 H (0-40) U/L Alkaline Phosphatase 73 (39-117) U/L Total Protein 7.8 (6.5-8.0) g/dL Albumin 4.4 (3.5-5.0) g/dL Lipase 326 H (8-78) U/L Urine Color Yellow Urine Appearance Clear Urine pH 5.5 (5.0-9.0) Ur Specific [place] 1.010 (1.005-1.025) Urine Protein Negative (Neg-Trace) mg/dL Urine Glucose (UA) Negative (Negative) mg/dL Urine Ketones Negative (Negative) mg/dL Urine Blood Negative (Negative) Urine Nitrite Negative (Negative) Ur Leukocyte Esterase Negative (Negative) Urine RBC 0-2 (0-2) /HPF Urine WBC 0-5 (0-5) /HPF Ur Squamous Epith Cells 0-2 (0-2) /HPF Urine Bacteria None Seen (None Seen) Hyaline Casts 0-2 (0-2) /LPF Imaging Data CT scan - abdomen: Radiologist's impression: ears to have a few punctate calyceal stones, as seen on the 0.6 mm axial images, but is otherwise unremarkable. The left kidney has a punctate calyceal stone in its lower pole and 0.4 cm stone in its upper pole. Mild hydronephrosis and moderate hydroureter are caused by a 0.3 x 0.5 x 0.7 stone in the distal ureter located just above the level of the ureterovesical junction. BLADDER:? Normal. No calculi or wall thickening. BOWEL AND PERITONEUM: Stomach is unremarkable. No dilated loops of bowel. The appendix is normal. No overt bowel wall thickening or mesenteric fat stranding. No free fluid or pneumoperitoneum. ABDOMINAL WALL: Incidentally noted is a fat-containing left inguinal hernia.? VASCULATURE: Unremarkable. LYMPH NODES: No pathologic sized lymph nodes in the abdomen or pelvis. No inguinal lymphadenopathy. PELVIC VISCERA: Unremarkable. SKELETAL: Bone islands of each femoral head. No suspicious bone lesions. Mild spondylosis of the visualized lower thoracic and lumbar spine. 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 CT/CT abdomen pelvis wo IV con IMPRESSION: *? Left-sided hydronephrosis is caused by a 0.3 x 0.5 x 0.7 cm stone of the distal ureter. *? Small, 0.4 cm stone is present in the upper pole of the left kidney. Also, there appear to be a few punctate calyceal stones. *? Mild hepatomegaly and diffuse hepatic steatosis Discharge Plan Discharge Clinical Impression: Renal colic Patient Disposition: Home, Self-Care Instructions: Renal Colic (ED) Additional Instructions: You have a kidney stone in the left side drink lot of fluids, take the Flomax every day the pain medicine as needed, return if you have a fever vomiting intractable pain, otherwise follow up with Dr. Gaston Prescriptions: New tamsulosin [Flomax] 0.4 mg capsule 0.4 mg PO DAILY Qty: 10 0RF ibuprofen 800 mg tablet 800 mg PO TID PRN (Reason: pain) Qty: 20 0RF oxycodone 5 mg tablet 5 mg PO Q6H PRN (Reason: pain) Qty: 15 0RF Rx Instructions: partial filing upon pt request; Partial Fill upon patient request. No Action metoprolol succinate 25 mg tablet extended release 24 hr 25 mg PO DAILY 90 Days Qty: 90 1RF cephalexin 500 mg capsule 500 mg PO Q6H 7 Days Qty: 28 0RF ursodiol 300 mg capsule 600 mg PO BID sulfamethoxazole-trimethoprim 800-160 mg tablet 1 tab PO BID amoxicillin-pot clavulanate 875-125 mg tablet 1 tab PO BID Referrals: Pablo Gaston MD [Physician] - 3 days Stand Alone Forms: Work/School Release Interventions: ED Discharge Assessment Last Done: 12/27/21 09:49 Discharge Date/Time: 12/27/21 09:49
[2021-12-27] MEDS: Morphine Sulfate 4 MG/ML CARTRIDGE IVPUSH (07:06)
[2021-12-27] MEDS: 0.9 % Sodium Chloride 1,000 ML 999 ML IVCONT (07:06)
--- NOTE | 2021-12-27 07:11 | PC.NURSE ---
patient a/ox4 . aneeshrla . heart rate regular at 66 beats per minute . lungs clear abdomen soft . rebound tenderness noted in left lower quadrant . positive bowel sounds throughout . patient reports waking up at 2 am with sharp pain in left abdomen /flank area radiating to groin . skin is pink warm and dry . patient has been medicated with morphine and zofran as ordered . patient is aware of plan of care .
[2021-12-27 07:17] VITALS: BP 143/97; PULSE 61; RESP 18; TEMP 36.5; O2SAT 95
[2021-12-27] MEDS: Ketorolac Tromethamine 30 MG/ML VIAL IVPUSH (09:17)
--- NOTE | 2021-12-27 09:46 | PC.NURSE ---
patient a/o x4 . went over discharge instructions as ordered by provider . patient given contact information for urology .patient to return to Ed if symptoms worsen . no questions at this time .
== END 2021-12-27 09:49 | disposition home or self-care (01) ==
PROVIDERS: Emergency Provider Emergency Medicine; PCP Internal Medicine
DX: N13.2 Hydronephrosis with renal and ureteral calculous obstruction (principal)
CPT/HCPCS: 36415; 74176; 80053; 81001; 83690; 85025; 96361; 96374; 96375; 96376; 99284; J1885; J2270; J2405

== ENCOUNTER → 2022-01-15 15:23 | Outpatient (BNVA) | payer OTHER, SELFPAY | PROVIDERS: PCP Internal Medicine; Visit Provider Urology | DX: N20.0 Calculus of kidney (principal); N20.1 Calculus of ureter; N13.30 Unspecified hydronephrosis | CPT/HCPCS: 99202 ==

== ENCOUNTER 2022-01-18 10:17 | Outpatient (REF) | payer OTHER, SELFPAY ==
[2022-01-25 16:26] LABS: Stone Source KIDNEY
== END 2022-01-18 10:18 | disposition home or self-care (01) ==
LOC: HO.LAB 10:17
PROVIDERS: Visit Provider Urology
DX: N20.0 Calculus of kidney (principal)
CPT/HCPCS: 82365; 88300

== ENCOUNTER → 2022-03-03 14:27 | Outpatient (BNVA) | payer OTHER, SELFPAY | PROVIDERS: PCP Internal Medicine; Visit Provider Urology | DX: N20.0 Calculus of kidney (principal) ==

== ENCOUNTER 2022-03-05 10:08 | Outpatient (REF) | payer OTHER, SELFPAY ==
[2022-03-05 11:48] LABS: Alanine Aminotransferase 91 U/L (0-40); Albumin Level 4.4 g/dL (3.5-5.0); Alkaline Phosphatase 68 U/L (39-117); Aspartate Amino Transferase 46 U/L (5-37); Bilirubin Direct 0.2 mg/dL (0.0-0.5); Bilirubin Total 0.8 mg/dL (0.0-1.0); Total Protein 7.6 g/dL (6.5-8.0)
== END 2022-03-05 10:09 | disposition home or self-care (01) ==
LOC: HO.LAB 10:08
PROVIDERS: PCP Internal Medicine; Visit Provider Internal Medicine
DX: K76.0 Fatty (change of) liver, not elsewhere classified (principal); R94.5 Abnormal results of liver function studies
CPT/HCPCS: 36415; 80076

== ENCOUNTER 2022-04-01 15:45 | Outpatient (REF) | payer OTHER, SELFPAY ==
--- NOTE | ~2022-04-01 | US_ITS ---
EXAMINATION: US RETROPERITONEAL LIMITED (RENAL ONLY) CLINICAL INFORMATION: Flank pain. Calculus of kidney. COMPARISON: CT abdomen and pelvis 12/27/2021. Ultrasound abdomen complete 06/25/2021 and 05/15/2019. TECHNIQUE: Real-time imaging of the kidneys. FINDINGS: RIGHT KIDNEY: 11.3 x 5.7 x 4.3 cm (SAG x AP x TRV). The kidney is normal in size, contour, and echogenicity. Renal cortical thickness is normal. No calculi or focal parenchymal lesions. No hydronephrosis. LEFT KIDNEY: 11.9 x 4.9 x 4.7 cm (SAG x AP x TRV). The kidney is normal in size, contour, and echogenicity. Renal cortical thickness is normal. No focal parenchymal lesions. There is a 4 x 3 x 3 mm echogenic focus at the lower pole consistent with a nonobstructing calculus. The previously noted left hydronephrosis caused by a obstructing distal ureteral stone has resolved and no hydronephrosis is present at this time. Incidental note made of increased echogenicity of liver consistent with hepatic steatosis, similar to the 12/27/2021 CT scan. US/US renal BI IMPRESSION: 1. Nonobstructing 4 mm left lower pole calculus. 2. Resolved left-sided hydronephrosis. 3. Incidentally noted hepatic steatosis.
== END 2022-04-01 15:46 | disposition home or self-care (01) ==
LOC: HO.US 15:45
PROVIDERS: Visit Provider Urology
DX: R10.9 Unspecified abdominal pain (principal); N20.0 Calculus of kidney
CPT/HCPCS: 76775

== ENCOUNTER 2022-04-23 08:17 | Day surgery (SDC) | payer OTHER, SELFPAY ==
[2022-04-23 08:58] VITALS: BMI 29.2
[2022-04-23 09:25] VITALS: BP 145/98; PULSE 62; RESP 18; TEMP 36.2; O2SAT 98
[2022-04-23] MEDS: Lactated Ringers 1,000 ML 50 ML IVCONT (09:43)
--- NOTE | 2022-04-23 10:10 | P.CONAN_ITS ---
HPI - Anesthesia Eval Consult details Narrative: colonoscopy [facility] Active Problems Active Problems: All Active Problems (Updated 04/22/22 @ 12:43 by Krysten Rubio RN) Exertional chest pain (Acute) Renal calculi (Acute) Ureteral stone (Acute) Hydronephrosis (Acute) Flank pain (Acute) Dysuria (Acute) Past Medical History Medical History (Updated 04/22/22 @ 12:43 by Krysten Rubio RN) Asthma Dysuria Fatty liver Hyperlipidemia Family History Family History Father HTN (hypertension) Mother HTN (hypertension) Family history of problems with anesthesia: No Surgical History Surgical History (Updated 04/22/22 @ 12:43 by Krysten Rubio RN) H/O esophagogastroduodenoscopy Hx of knee surgery History of Problems with Anesthesia: No Social History Social History Patient Tobacco Use Status: Never used Tobacco Use of substances other than those prescribed or required for medical reasons: No Are you DNR?: No Advance Directives: No Advance Directives Information Provided: Yes Meds Allergies Allergy/AdvReac Type Severity Reaction Status Date / Time No Known Allergies Allergy Verified 03/03/22 14:39 [No Known Allergies*] Active Medications: Current Medications Lactated Ringer's (Lr) 1,000 mls @ 50 mls/hr IVCONT .Q20H TAMIKA Last Admin: 04/23/22 09:43 Dose: 50 mls/hr Sodium Biphosphate/Sodium Phosphate (Sodium Phosphate,[place]-Dibasic 133 Ml Enema) 133 ml OK ONCE PRN PRN Reason: Poor Colonoscopy Prep Results Home Medications Medication Instructions Recorded Confirmed Last Taken Type ursodiol 500 mg tablet 500 mg PO DAILY 03/03/22 04/23/22 04/22/22 History Exam Exam Date and Time: April 23, 2022 1010 Height,Weight and Vital Signs: Height 5 ft 4 in Weight 77.111 kg Last Vital Signs Temp 97.1 F 04/23/22 09:25 Pulse 62 04/23/22 09:25 Resp 18 04/23/22 09:25 BP 145/98 H 04/23/22 09:25 Pulse Ox 98 04/23/22 09:25 O2 Del Method 04/23/22 09:25 Airway Mallampati Class: II TM Dist: >3cm Neck ROM: Full Heart: rrr Lungs: cta Assessment and Plan Final Anesthetic Review Family History of Problems with Anesthesia: No History of Problems with Anesthesia: No NPO: Yes ASA Class: II Final Preanesthetic Review: No Changes in Pt Med Stat, Meds/Allgs Chart Reviewed, Consent Obtained/Reviewed and Anes Risks/Benef Reviewed Patient Risk: Low Procedure Risk: Low Anesthetic Plan Anesthetic Plan: MAC: and Agree w/ Assess. and Plan Disposition: Standard PACU
[2022-04-23 11:00] VITALS: BP 102/78; PULSE 82; RESP 16; TEMP 36.3; O2SAT 95
--- NOTE | 2022-04-23 11:00 | PM.OP ---
Brief Operative Note Date of Service: 04/23/22 Pre-op diagnosis: Screening Post-op diagnosis: other (Internal hemorrhoids) Procedure: Colonoscopy to the cecum and TI Surgeon: Jourdan Sotelo Anesthesia: MAC Was an Cash Register Mechanic used for this Procedure?: No Estimated blood loss (mL): 0 Pathology: none sent Condition: stable Disposition: PACU
[2022-04-23 11:15] VITALS: BP 118/81; PULSE 73; RESP 18; TEMP 36.3; O2SAT 99
--- NOTE | 2022-04-23 22:51 | OP_ITS ---
SURGEON: Jourdan Sotelo MD INDICATIONS: The patient presents for evaluation of colorectal cancer screening. Full consent has been obtained from him for this, including risks of bleeding and perforation. PREOPERATIVE DIAGNOSIS: Colorectal cancer screening POSTOPERATIVE DIAGNOSIS: PROCEDURE PERFORMED: Colonoscopy to the cecum and terminal ileum. ESTIMATED BLOOD LOSS: COMPLICATIONS: ANESTHESIA: Monitored anesthesia care. ASSISTANTS: SPECIMENS: POSTOPERATIVE DIAGNOSES: Colorectal cancer screening and small internal hemorrhoids. PROCEDURE IN DETAIL: The patient was placed in the left lateral decubitus position. The digital rectal exam revealed no abnormalities. The Olympus video pediatric colonoscope was entered into the rectum and advanced easily to the cecum. Once in the cecum, I did identify a normal-appearing cecal pouch with appendiceal orifice and a normal-appearing ileocecal valve. The terminal ileum was cannulated and appeared normal. The scope was withdrawn back in the colon. The entire cecum and ileocecal valve appeared normal. The scope was then slowly withdrawn assessing all mucosal surfaces carefully. Preparation was excellent. I did not visualize any sign of polyps, colitis nor angiodysplasia. In the rectum, scope was retroflexed, visualizing minimal internal hemorrhoids but no other pathology. The rectal mucosa appeared normal. The scope was straightened and withdrawn from the patient. He tolerated the procedure well and was returned to the recovery area in stable condition. IMPRESSION: Normal colonoscopy other than minimal internal hemorrhoids. PLAN: I would recommend a repeat colonoscopy in 10 years for further screening. He will continue his Ursodiol daily for his fatty liver and was advised to see me by the fall for a followup visit. He will have repeat laboratories for his liver in June. MD LISA Thrasher/LEONCIO / [id number] MTDParth
== END 2022-04-23 11:50 | disposition home or self-care (01) ==
PROVIDERS: PCP Internal Medicine; Visit Provider Internal Medicine
PROC: 0DJD8ZZ Inspection of Lower Intestinal Tract, Via Natural or Artificial Opening Endoscopic (ICD-10-PCS; CPT 45378; principal; 2022-04-23 09:40)
DX: Z12.11 Encounter for screening for malignant neoplasm of colon (principal); K64.8 Other hemorrhoids; K76.0 Fatty (change of) liver, not elsewhere classified; K74.00 Hepatic fibrosis, unspecified; R94.5 Abnormal results of liver function studies; J45.909 Unspecified asthma, uncomplicated; E78.5 Hyperlipidemia, unspecified; N20.0 Calculus of kidney; Z79.1 Long term (current) use of non-steroidal anti-inflammatories (NSAID); Z79.899 Other long term (current) drug therapy
CPT/HCPCS: 45378

== ENCOUNTER 2022-07-30 07:46 | Outpatient (REF) | payer OTHER, SELFPAY ==
[2022-07-30 09:38] LABS: Alanine Aminotransferase 63 U/L (0-40); Albumin Level 4.3 g/dL (3.5-5.0); Alkaline Phosphatase 77 U/L (39-117); Aspartate Amino Transferase 31 U/L (5-37); Bilirubin Direct 0.2 mg/dL (0.0-0.5); Bilirubin Total 0.9 mg/dL (0.0-1.0); Total Protein 7.6 g/dL (6.5-8.0)
== END 2022-07-30 07:47 | disposition home or self-care (01) ==
LOC: HO.LAB 07:46
PROVIDERS: Visit Provider Internal Medicine
DX: R79.89 Other specified abnormal findings of blood chemistry (principal)
CPT/HCPCS: 36415; 80076

== ENCOUNTER 2022-12-03 09:18 | Outpatient (REF) | payer OTHER, SELFPAY ==
--- NOTE | ~2022-12-03 | US_ITS ---
EXAMINATION: US COMPLETE ABDOMEN WITH LIVER ELASTOGRAPHY CLINICAL INFORMATION: Hepatic fibrosis. COMPARISON: Prior ultrasound examinations, most recently 04/01/2022; CT abdomen and pelvis dated 12/27/2021. TECHNIQUE: Real-time imaging of the abdominal viscera. Noninvasive ultrasound liver fibrosis assessment is performed using Marina ElastPQ point quantification shear wave elastography (2D-SWE) with a C5-2 MHz transducer. Multiple elastography samples are obtained. FINDINGS: PANCREAS: Normal. The visualized pancreatic head and body are normal in appearance. The remainder of the pancreas is obscured from visualization by the overlying bowel gas. ABDOMINAL AORTA: The proximal, middle, and distal aortic segments are normal in caliber. INFERIOR VENA CAVA: Visualized portions are normal. LIVER: The liver demonstrates normal size, contour and increased echogenicity. No focal lesion or intrahepatic biliary duct dilatation. The right lobe measures 17.7 cm in length. The left lobe measures 10.4 cm in length. Portal flow is towards the liver (hepatopetal). Shear wave liver elastography median stiffness is 1.05 m/s (reference: normal median stiffness is 1.3 m/s or less). IQR/median stiffness to assess sampling precision is 0.22 (reference: good quality data set is IQR/median stiffness of 0.15 or less). GALLBLADDER: Normal. The gallbladder is physiologically distended without evidence of stones, sludge, polyps, wall thickening or pericholecystic fluid. COMMON BILE DUCT: Normal in caliber measuring 0.2 cm in diameter. RIGHT KIDNEY: Normal. No hydronephrosis. No renal calculi or focal parenchymal lesions. The kidney measures 12.4 cm in maximum dimension. LEFT KIDNEY: At the upper pole, a 6 mm nonobstructing calculus is seen. At the lower pole, a 5 mm nonobstructing calculus is seen. No hydronephrosis. No renal calculi or focal parenchymal lesions. The kidney measures 11.8 cm in maximum dimension. SPLEEN: Normal. The spleen measures 9.1 cm in maximum dimension. FREE FLUID: None. US/US abdomen comp w elastography IMPRESSION: 1. There is generalized increase in hepatic echotexture, consistent with fatty infiltration or hepatocellular disease. Please correlate clinically. No focal hepatic mass or intrahepatic biliary dilatation is seen. 2. Liver elastography: Although measurements suggest a high probability of normal liver stiffness, there is statistical variability of the sampling which decreases accuracy. 3. There are nonobstructing left renal calculi. REFERENCE: Society of Radiologists in Ultrasound Liver Stiffness Thresholds (2020): LIVER STIFFNESS THRESHOLDS: *Liver Stiffness equal or less than 1.3 m/s: High probability of being normal. *Liver Stiffness less than 1.7 m/s: In the absence of other known clinical signs, rules out compensated advanced chronic liver disease. *Liver Stiffness 1.7-2.1 m/s: Suggestive of compensated advanced chronic liver disease but need further test for confirmation. *Liver Stiffness over 2.1 m/s: Rules in compensated advanced chronic liver disease. *Liver Stiffness over 2.4 m/s: Suggestive of clinically significant portal hypertension. QUALITY OF DATA SET: *IQR/Median value equal or less than 0.15 implies a quality data set. *IQR/Median value over 0.15 implies a poor quality data set. SIGNIFICANT CHANGE FROM PRIOR EXAM: Significant change if liver stiffness measurement is 10% or greater from prior exam. OTHER CONSIDERATIONS: The stage of liver fibrosis may be overestimated in the setting of acute hepatitis, liver inflammation, elevated liver function tests, hepatic vascular congestion, obstructive cholestasis, non-fasting state, and infiltrative diseases such as amyloidosis and lymphoma. In some patients with NAFLD, the liver stiffness thresholds for compensated advanced chronic liver disease may be lower. In causes other than viral hepatitis and NAFLD, liver stiffness thresholds are not well established.
== END 2022-12-03 09:19 | disposition home or self-care (01) ==
LOC: HO.US 09:18
PROVIDERS: Visit Provider Internal Medicine
DX: K76.0 Fatty (change of) liver, not elsewhere classified (principal); R94.5 Abnormal results of liver function studies; K74.00 Hepatic fibrosis, unspecified
CPT/HCPCS: 76705; 76981

== ENCOUNTER 2023-01-22 08:45 | Outpatient (REF) | payer OTHER, SELFPAY ==
[2023-01-22 09:04] LABS: MANUAL DIFF FLAG NO
[2023-01-22 10:09] LABS: Basophils Absolute Auto 0.1 X10*3/uL (0.0-0.2); Basophils Percent Auto 0.9 % (0-2); Eosinophils Absolute Auto 0.2 X10*3/uL (0.0-0.4); Eosinophils Percent Auto 2.5 % (0-4); Hematocrit 47.1 % (42.0-52.0); Hemoglobin 16.3 g/dl (14.0-18.0); Imm Gran Abs Auto 0.02 X10*3/uL (0.00-0.03); Imm Gran Pct Auto 0.2 % (0.0-0.4); Lymphocytes Absolute Auto 4.1 X10*3/uL (1.2-4.9); Lymphocytes Percent Auto 46.8 % (20-40); Mean Corpuscular HGB Conc 34.6 g/dl (31.0-36.0); Mean Corpuscular Hemoglobin 32.3 pg (27.0-33.0); Mean Corpuscular Volume 93.5 fL (80.0-98.0); Mean Platelet Volume 10.7 fL (9.4-12.4); Monocytes Absolute Auto 0.7 X10*3/uL (0.1-1.2); Monocytes Percent Auto 7.4 % (2-11); Neutrophils Absolute Auto 3.7 x10*3/uL (2.0-8.3); Neutrophils Percent Auto 42.2 % (45-73); Platelet Count 249 X10*3/uL (160-400); Red Blood Count 5.04 X10*6/uL (4.60-5.80); Red Cell Distribution Width 12.3 % (11.0-16.0); White Blood Count 8.8 X10*3/uL (4.8-10.8)
[2023-01-22 10:25] LABS: Alanine Aminotransferase 109 U/L (0-40); Albumin Level 4.2 g/dL (3.5-5.0); Alkaline Phosphatase 76 U/L (39-117); Aspartate Amino Transferase 54 U/L (5-37); Bilirubin Direct 0.2 mg/dL (0.0-0.5); Bilirubin Total 0.6 mg/dL (0.0-1.0); Total Protein 7.8 g/dL (6.5-8.0)
[2023-01-24 12:39] LABS: Alpha Fetoprotein 3.8 ng/mL (<6.1)
[2023-01-27 16:04] LABS: FIB-ALT 96 U/L (9-46); FIB-Alpha-2-Macroglobulin 331 mg/dL (106-279); FIB-Apolipoprotein A1 136 mg/dL (94-176); FIB-GGT 37 U/L (3-95); FIB-Haptoglobin 165 mg/dL (43-212); FIB-Total Bilirubin 0.5 mg/dL (0.2-1.2); Liver Fibrosis Score 0.42; Liver Fibrosis Stage F1-F2; Nec Inflam Act Grade A2
== END 2023-01-22 08:46 | disposition home or self-care (01) ==
LOC: HO.LAB 08:45
PROVIDERS: PCP Internal Medicine; Visit Provider Internal Medicine
DX: K76.0 Fatty (change of) liver, not elsewhere classified (principal); K74.00 Hepatic fibrosis, unspecified; R94.5 Abnormal results of liver function studies
CPT/HCPCS: 36415; 80076; 81596; 82105; 85025

== ENCOUNTER 2023-05-11 13:56 | Emergency (ER) | payer OTHER, SELFPAY ==
--- NOTE | ~2023-05-11 | XR_ITS ---
EXAMINATION: XR CHEST CLINICAL INFORMATION: Chest pain COMPARISON: August 10, 2020 TECHNIQUE: PA view of the chest was obtained. FINDINGS: No significant abnormality is noted involving the heart, lungs, mediastinum, bony thorax or soft tissues. XR/XR chest 1V IMPRESSION: No acute disease.
[2023-05-11 14:00] VITALS: BMI 28.3
--- NOTE | 2023-05-11 14:01 | ECG_ITS ---
Test Reason : CHEST PAIN Blood Pressure : / mmHG Vent. Rate : 069 BPM Atrial Rate : 069 BPM P-R Int : 176 ms QRS Dur : 112 ms QT Int : 386 ms P-R-T Axes : 023 -74 031 degrees QTc Int : 413 ms Normal sinus rhythm Left axis deviation Incomplete right bundle branch block Abnormal ECG When compared with ECG of 10-AUG-2020 13:23, Incomplete right bundle branch block is now Present Referred By: Generic ED Physician Electronically Signed By:YADI BUENROSTRO MD
[2023-05-11 14:12] LABS: MANUAL DIFF FLAG NO
[2023-05-11 14:15] LABS: Basophils Absolute Auto 0.1 X10*3/uL (0.0-0.2); Basophils Percent Auto 0.8 % (0-2); Eosinophils Absolute Auto 0.2 X10*3/uL (0.0-0.4); Eosinophils Percent Auto 1.8 % (0-4); Hematocrit 44.1 % (42.0-52.0); Hemoglobin 16.3 g/dl (14.0-18.0); Imm Gran Abs Auto 0.03 X10*3/uL (0.00-0.03); Imm Gran Pct Auto 0.3 % (0.0-0.4); Lymphocytes Absolute Auto 4.9 X10*3/uL (1.2-4.9); Lymphocytes Percent Auto 45.7 % (20-40); Mean Corpuscular Hemoglobin 33.3 pg (27.0-33.0); Mean Corpuscular Volume 90.2 fL (80.0-98.0); Mean Platelet Volume 9.3 fL (9.4-12.4); Monocytes Absolute Auto 0.9 X10*3/uL (0.1-1.2); Neutrophils Absolute Auto 4.6 x10*3/uL (2.0-8.3); Neutrophils Percent Auto 43.4 % (45-73); Platelet Count 273 X10*3/uL (160-400); Red Blood Count 4.89 X10*6/uL (4.60-5.80); Red Cell Distribution Width 12.1 % (11.0-16.0); White Blood Count 10.6 X10*3/uL (4.8-10.8)
[2023-05-11 14:25] LABS: INTERNATIONAL NORM RATIO 1.1 (0.9-1.1); Prothrombin Time 13.4 SEC (11.1-13.3)
[2023-05-11 14:28] LABS: Alanine Aminotransferase 98 U/L (0-40); Albumin Level 4.3 g/dL (3.5-5.0); Alkaline Phosphatase 76 U/L (39-117); Anion Gap 11 (12-20); Aspartate Amino Transferase 43 U/L (5-37); Bilirubin Direct 0.2 mg/dL (0.0-0.5); Bilirubin Total 0.7 mg/dL (0.0-1.0); Blood Urea Nitrogen 11 mg/dL (9-16); Calcium 9.5 mg/dL (8.4-10.2); Carbon Dioxide 29 mmol/L (22-29); Chloride 105 mmol/L (96-108); Creatinine Clr Calc Pharmacy 109.1; Estimated Glomerular Filt Rate > 60; Glucose Random 105 mg/dL (60-115); Potassium 3.4 mmol/L (3.3-5.1); Sodium 142 mmol/L (135-145); Total Protein 7.9 g/dL (6.5-8.0)
[2023-05-11 14:36] LABS: Troponin-I High Sensitivity < 2.7 ng/L (<3.5-35.0)
[2023-05-11 14:49] VITALS: BP 149/101; PULSE 75; RESP 16; TEMP 36.6; O2SAT 98; BMI 33.3
[2023-05-11 17:30] LABS: Troponin-I High Sensitivity 3.1 ng/L (<3.5-35.0)
[2023-05-11 17:50] LABS: Influenza A PCR NEGATIVE (Negative); Influenza B PCR NEGATIVE (Negative); Resp Syncy Virus RNA Qual PCR NEGATIVE (Negative); SARS COV2 PCR INHOUSE NEGATIVE (Negative)
[2023-05-11 19:04] VITALS: BP 154/95; PULSE 64; RESP 14; TEMP 36.7; O2SAT 95
--- NOTE | 2023-05-11 19:28 | ED_ITS ---
HPI - Chest Pain General Chief Complaint: Chest Pain Stated Complaint: Chest Pain Time Seen by Provider: 05/11/23 19:28 Source: patient Mode of arrival: ambulatory Limitations: no limitations History of Present Illness HPI narrative: Patient is a 48 year old assigned male at with a history of kidney stones presenting to the emergency department today with intermittent chest pain. Patient states that over the last week he has had intermittent chest pain. Patient denies any current dizziness, lightheadedness, abdominal pain, nausea, vomiting, fever, chills, blurry vision, double vision, loss of vision, difficulty breathing, shortness of breath, back pain, night sweats, pain with urination, increased urinary frequency, increased urinary urgency, blood in his urine or stool, syncope or a near syncopal episode, recent trauma or falls, bowel incontinence, bladder incontinence, bowel retention, bladder retention, or any other complaints at this time. MD complaint: chest pain Related Data Home Medications Medication Instructions Recorded Confirmed ursodiol 500 mg tablet 500 mg PO DAILY 03/03/22 04/23/22 Allergies Allergy/AdvReac Type Severity Reaction Status Date / Time No Known Allergies Allergy Verified 03/03/22 14:39 [No Known Allergies*] Review of Systems 2 Constitutional: Constitutional: Reports no additional constitutional complaints, Denies chills, Denies fever(s) and Denies night sweats Eyes: Eyes: Reports no additional eye complaints, Denies blurry vision, Denies change in vision, Denies diplopia, Denies eye discharge, Denies loss of vision and Denies eye pain ENT: Denies dizziness Cardiovascular: Cardiovascular: Reports no additional cardiovascular complaints, Reports chest pain, Denies lightheadedness, Denies Loss of Consciousness and Denies dyspnea Respiratory: Respiratory: Reports no additional respiratory complaints and Denies dyspnea Gastrointestinal: Gastrointestinal: Reports no additional gastrointestinal complaints, Denies abdominal pain, Denies melena, Denies hematochezia, Denies change in bowel habits and Denies change in stool character Genitourinary: Genitourinary: Reports no additional male genitourinary complaints, Denies hematuria, Denies oliguria, Denies difficulty urinating, Denies dysuria, Denies urinary frequency, Denies urinary hesitancy, Denies urinary incontinence and Denies urinary urgency Musculoskeletal: Musculoskeletal: Reports no additional musculoskeletal complaints, Denies numbness and Denies tingling Neurologic: Denies dizziness, Denies loss of vision, Denies numbness and Denies tingling Psychiatric: Psychiatric: Reports no additional psychiatric complaints Endocrine: Endocrine: Reports no additional endocrine complaints Hematologic/Lymphatic: Hematologic/Lymphatic: Reports no additional hematologic/lymphatic complaints Allergic/Immunologic: Allergic/Immunologic: Reports no additional allergic/immunologic complaints [facility] Past Medical History Attestation statement: The following information was validated with the patient. Source: old records reviewed and nursing notes reviewed Medical History Hyperlipidemia Asthma Dysuria Fatty liver Surgical History H/O esophagogastroduodenoscopy Hx of knee surgery Family History Family History Father HTN (hypertension) Mother HTN (hypertension) Social History Social History Patient Tobacco Use Status: Never used Tobacco Smoked in Last 30 Days: No Use of substances other than those prescribed or required for medical reasons: No Advance Directives: No Advance Directives Information Provided: No Physical Exam 2 Vital Signs: Vital Signs: Last Vital Signs Temp 98.1 F 05/11/23 19:04 Pulse 64 05/11/23 19:04 Resp 14 05/11/23 19:04 BP 154/95 H 05/11/23 19:04 Pulse Ox 95 05/11/23 19:04 O2 Del Method Room Air 05/11/23 19:04 BMI result Body Mass Index 33.3 Const: General: cooperative, no acute distress, alert and awake Nutritional Appearance: well nourished Orientation/consciousness: patient oriented x3 Limitations: no limitations HEENT: Head: Yes normal to inspection and Yes atraumatic Ears: hearing grossly normal bilaterally and external ears normal General nose exam: Normal external nose present, no nasal discharge noted and no epistaxis Face and sinus: Yes normal facial exam, No abrasion and No laceration Mouth: Normal oral and palatal mucosa present, no drooling and no muffled voice Eyes: General: appearance normal, both eyes and all related structures P eriorbital: periorbital findings normal Eyelids: Yes eyelids normal C onjunctivae: conjunctivae normal Pupils: Equal, round and reactive pupils present EOM: EOMs intact bilaterally Neck: Neck: Yes normal visual inspection, Yes full ROM and Yes no lymphadenopathy Chest: Chest palpation & inspection: normal inspection of the chest Resp: Effort & Inspection: normal respiratory effort and able to speak in complete sentences GI: Inspection: Yes normal to inspection Neuro: General: patient oriented x3 and moves all extremities Cranial nerves: Yes Equal, round and reactive pupils present Cognition (Neuro): n ormal cognition Motor exam (neuro): 5/5 motor strength present throughout Sensory Exam: Normal double simultaneous stimulation for sensation C oordination: [id number] test normal Extrem: General: Yes normal to inspection, Yes full ROM and Yes capillary refill normal Psych: Appearance: grossly normal Mental Status: mental status grossly normal Affect: normal affect Attitude: cooperative Thought process: N ormal thought process present Thought content: Normal thought content present Insight: Good insight present (Psych) Medications Administered Discontinued Medications Generic Name Dose Route Start Last Admin Trade Name Freq PRN Reason Stop Dose Admin Ketorolac Tromethamine 15 mg 05/11/23 19:41 05/11/23 20:04 Ketorolac Tromethamine 15 Mg/Ml Vial IM 05/11/23 19:42 15 mg ONCE ONE Administration Medical Decision Making Medical Decision Making [facility] Narrative: Patient is a 48 year old assigned male at with a history of kidney stones presenting to the emergency department today with left sided intermittent chest pain. Patient's physical exam was unremarkable. Patient's blood work was unremarkable. Patient's EKG was unremarkable. Patient's chest x-ray showed no acute process. I explained my physical exam findings as well as all test results to the patient. I answered all questions asked by the patient. I stressed the importance of the patient taking his medication as prescribed. I stressed the importance of the patient following up with his primary care provider. I stressed the importance of the patient returning to the emergency department immediately if his symptoms were to worsen or if he were to develop any dizziness, shortness of breath, difficulty breathing, chest pain, blurry vision, loss of vision, nausea, vomiting, abdominal pain, fever, chills, back pain, or any other complaints. Patient verbalized agreement and understanding with this treatment plan and discharge. Differential Diagnosis Differential Diagnoses: The differential diagnosis associated with the presentation includes Chest pain NSTEMI STEMI Angina Chostochondritis Admission/Observation Consideration of admission/observation: Escalation of care including admission/observation considered Patient would have been admitted to the hospital had his work up had any findings where hospital admission was appropriate and his clinical presentation warranted hospital admission. Lab Data [facility] Lab Attestation statement: I reviewed the patient's lab results. My interpretation of these results are in the [facility] Rationale portion of this note. 05/11/23 14:09 05/11/23 14:09 Labs: Lab Results 05/11/23 05/11/23 Range/Units 13:34 14:09 WBC 10.6 (4.8-10.8) X10*3/uL RBC 4.89 (4.60-5.80) X10*6/uL Hgb 16.3 (14.0-18.0) g/dl Hct 44.1 (42.0-52.0) % MCV 90.2 (80.0-98.0) fL MCH 33.3 H (27.0-33.0) pg MCHC 37.0 H (31.0-36.0) g/dl RDW 12.1 (11.0-16.0) % Plt Count 273 (160-400) X10*3/uL MPV 9.3 L (9.4-12.4) fL Immature Gran % (Auto) 0.3 (0.0-0.4) % Neut % (Auto) 43.4 L (45-73) % Lymph % (Auto) 45.7 H (20-40) % Becker % (Auto) 8.0 (2-11) % Eos % (Auto) 1.8 (0-4) % Baso % (Auto) 0.8 (0-2) % Lymph # (Auto) 4.9 (1.2-4.9) X10*3/uL Becker # (Auto) 0.9 (0.1-1.2) X10*3/uL Eos # (Auto) 0.2 (0.0-0.4) X10*3/uL Baso # (Auto) 0.1 (0.0-0.2) X10*3/uL Abs Immat Gran (auto) 0.03 (0.00-0.03) X10*3/uL Absolute Neuts (auto) 4.6 (2.0-8.3) x10*3/uL Absolute Nucleated RBC 0.000 (0.0-0.012) X10*3/uL Nucleated RBC % (auto) 0.0 (0.0-0.2) /100WBC PT 13.4 H (11.1-13.3) SEC INR 1.1 (0.9-1.1) Sodium 142 (135-145) mmol/L Potassium 3.4 (3.3-5.1) mmol/L Chloride 105 (96-108) mmol/L Carbon Dioxide 29 (22-29) mmol/L Anion Gap 11 L (12-20) BUN 11 (9-16) mg/dL Creatinine 0.81 (0.5-1.4) mg/dL Estim Creat Clear Calc 109.1 Estimated GFR > 60 Random Glucose 105 (60-115) mg/dL Calcium 9.5 (8.4-10.2) mg/dL Total Bilirubin 0.7 (0.0-1.0) mg/dL Direct Bilirubin 0.2 (0.0-0.5) mg/dL AST 43 H (5-37) U/L ALT 98 H (0-40) U/L Alkaline Phosphatase 76 (39-117) U/L Troponin I High Sens 3.1 < 2.7 (<3.5-35.0) ng/L Total Protein 7.9 (6.5-8.0) g/dL Albumin 4.3 (3.5-5.0) g/dL Influenza Type A (PCR) NEGATIVE (Negative) Influenza Type B (PCR) NEGATIVE (Negative) RSV RNA Qual (PCR) NEGATIVE (Negative) SARS-CoV-2 RNA (RT-PCR) NEGATIVE (Negative) Independent Interpretation I performed an independent interpretation of an: EKG and Plain X-Ray Interpretation: My interpretation is in agreement with the radiologist's impression of this imaging study. - EXAMINATION: XR CHEST CLINICAL INFORMATION: Chest pain COMPARISON: August 10, 2020 TECHNIQUE: PA view of the chest was obtained. FINDINGS: No significant abnormality is noted involving the heart, lungs, mediastinum, bony thorax or soft tissues. XR/XR chest 1V IMPRESSION: No acute disease. Dictated By: Geo Sharma MD Signed By: Electronically signed by Geo Sharma MD 05/11/23 1527 - Vent. Rate: 069 BPM Atrial Rate: 069 BPM P-R Int: 176 ms QRS Dur: 112 ms QT Int: 386 ms P-R-T Axes: 023 -74 031 degrees QTc Int: 413 ms Normal sinus rhythm Left axis deviation Incomplete right bundle branch block Abnormal ECG When compared with ECG of 10-AUG-2020 13:23, Incomplete right bundle branch block is now Present Electronically Signed By:ANJUM BUENROSTOR MD Dictated By: Anjum Buenrostro MD Signed By: Electronically signed by Anjum Buenrostro MD 05/12/23 1222 Radiology Impression Discussion of test interpretation with radiology: I have reviewed the radiologist's reading. Discharge Plan Discharge Clinical Impression: Chest pain Patient Disposition: Home, Self-Care Instructions: Chest Pain (DC) Additional Instructions: Follow up with your primary care provider. Return to the emergency department immediately if your symptoms worsen or if you develop any dizziness, shortness of breath, difficulty breathing, chest pain, blurry vision, loss of vision, nausea, vomiting, abdominal pain, fever, chills, back pain, or any other complaints. Prescriptions: No Action ursodiol 500 mg tablet 500 mg PO DAILY Referrals: Ingrid Robert MD [Primary Care Provider] - Stand Alone Forms: Work/School Release Interventions: ED Discharge Assessment Last Done: 05/11/23 20:12 Discharge Date/Time: 05/11/23 20:12 Print Language: Serbian
[2023-05-11] MEDS: Ketorolac Tromethamine 15 MG/ML VIAL IM (20:04)
--- NOTE | 2023-05-11 20:11 | PC.NURSE ---
pt medicated according to mar. pt at bedside. pt ambulatory at discharge. pt provided with discharge packet. pt verbalized understanding of discharge plan
== END 2023-05-11 20:12 | disposition home or self-care (01) ==
PROVIDERS: Physician Assistant Medical; Emergency Provider Emergency Medicine; PCP Internal Medicine
DX: R07.89 Other chest pain (principal); Z79.899 Other long term (current) drug therapy; Z11.52 Encounter for screening for COVID-19; Z20.822 Contact with and (suspected) exposure to COVID-19
CPT/HCPCS: 0241U; 36415; 71045; 80048; 80076; 84484; 85025; 85610; 93005; 96372; 99284; 99285; J1885

== ENCOUNTER → 2023-05-11 14:01 | Outpatient (BNV) | payer OTHER, SELFPAY | PROVIDERS: Emergency Provider Emergency Medicine; PCP Internal Medicine; Visit Provider Internal Medicine Cardiovascular Disease | DX: R94.31 Abnormal electrocardiogram [ECG] [EKG] (principal) | CPT/HCPCS: 93010 ==

== ENCOUNTER 2023-07-29 10:49 | Outpatient (REF) | payer OTHER, SELFPAY ==
[2023-08-05 19:47] LABS: Stone Source KIDNEY STONE
== END 2023-07-29 10:50 | disposition home or self-care (01) ==
LOC: HO.LNP 10:49
PROVIDERS: Visit Provider Urology
DX: N20.0 Calculus of kidney (principal)
CPT/HCPCS: 82365; 88300

== ENCOUNTER 2023-08-04 14:17 | Outpatient (REF) | payer OTHER, SELFPAY ==
--- NOTE | ~2023-08-04 | US_ITS ---
EXAMINATION: US RETROPERITONEAL LIMITED (RENAL ONLY) CLINICAL INFORMATION: Calculus of kidney. COMPARISON: US abdomen complete with liver elastography 12/03/2022. Renal ultrasound 04/01/2022. CT abdomen and pelvis 12/27/2021. TECHNIQUE: Real-time imaging of the kidneys. Limited visualization due to bowel gas. FINDINGS: RIGHT KIDNEY: 11.9 x 5.7 x 5.4 cm (SAG x AP x TRV). No hydronephrosis. No renal calculi. Renal cortical thickness is normal. Limited visualization. LEFT KIDNEY: 11.4 x 5.5 x 4.7 cm (SAG x AP x TRV). No hydronephrosis. Renal cortical thickness is normal. Limited visualization. 3 mm mid pole, 3 mm lower pole and 2 mm lower pole calculi. US/US renal BI IMPRESSION: Left nephrolithiasis. No hydronephrosis.
== END 2023-08-04 14:18 | disposition home or self-care (01) ==
LOC: HO.US 14:17
PROVIDERS: PCP Internal Medicine; Visit Provider Urology
DX: N20.0 Calculus of kidney (principal)
CPT/HCPCS: 76775

== ENCOUNTER 2023-08-18 10:15 | Outpatient (AMB) | payer OTHER, SELFPAY ==
--- NOTE | 2023-08-18 10:18 | A.OFFVIS_ITS ---
Intake Visit Reasons: follow up/US Intake Note: Follow up kidney stones and us results Medications: None Blood thinners: none Mortgage Servicing Specialist Required: No Accompanied by: Other Relationship Allergies No Known Allergies [No Known Allergies*] Allergy (Verified 03/03/22 14:39) Medication List - Last Reconciled 08/18/23 by Tabitha Sanchez MD ursodiol 500 mg PO DAILY HPI Comments Details: 08/18/2023--Leonel is a 48-year-old male who has been followed due to ne phrolithiasis. He had renal ultrasound done on 08/04/2023. I have reviewed results with him 3 small stones are visualized in the left kidney. The patient states he passed a small stone about 3 weeks ago and brought it into the office. The stone was sent for analysis on 07/29/2023, results calcium oxalate. We will continue to monitor follow-up in 1 year with renal ultrasound at that time. Patient to call if he has renal colic or thinks he is passing another stone. Review of chart:-----03/03/2022--He is here for FU to review metabolic w/u. Previously passed a stone; He was in the emergency room on 12/27/2021 for left flank pain. CT KUB that was done on 12/27/2021 noting a 7 mm distal ureteral stone with mild hydronephrosis. also punctate calcificaitons noted in the right kidney and small stone left kidney. The patient passed the stone. Reviewed 24 urine results and stone analysis: (CaOx) Discussed 24 hour urine results: Total volume 1.12 mL, Calcium 241 mg; Oxalate 22 mg, Sodium 140, Citrate 455 mg. Instructed on importance of fluid intake, Low oxalate diet, low sodium diet. To increase fluids to 2.5 liters The patient c/o's of back/flank pain, will check a renal sono now; and for future FU will monitor with routine imaging in 6 months Imaging: CT KUB 12/27/2021 punctate calyceal right kidney stones, small upper pole left kidney stone 4 mm. 7mm distal left ureteral stone PFSH Medical History Hyperlipidemia Asthma Dysuria Fatty liver Surgical History H/O esophagogastroduodenoscopy Hx of knee surgery Family History Father HTN (hypertension) Mother HTN (hypertension) Social History Patient Tobacco Use Status: Never used Tobacco Review of Systems Const All systems reviewed & are unremarkable except as noted in HPI and below Reports no additional complaints Eyes Reports no additional complaints ENT Reports no additional complaints Card Reports no additional complaints Resp Reports no additional complaints GI Reports no additional complaints Reports as per HPI Musc Reports no additional complaints Skin/Breast Reports system reviewed and no additional complaints, except as documented Neuro Reports no additional complaints Psych Reports no additional complaints Endo Reports no additional complaints Gerard/Lymph Reports no additional complaints Aller/Immun Reports no additional complaints Results AMB Urinalysis, Automated UA Leukoctes 0 Kevin/uL Last Edit by MILKA Liang on 08/18/23 11:08 UA Nitrite Negative Last Edit by MILKA Liang on 08/18/23 11:08 UA Urobilinogen 0.2 mg/dL Last Edit by MILKA Liang on 08/18/23 11:0 8 UA Protein 0 mg/dL Last Edit by MILKA Liang on 08/18/23 11:08 UA pH 6.0 Last Edit by MILKA Liang on 08/18/23 11:08 UA Blood 0 Agustín/uL Last Edit by MILKA Liang on 08/18/23 11:08 UA Specific [place] 1.015 Last Edit by MILKA Liang on 08/18/23 11: 08 UA Ketone Negative Last Edit by MILKA Liang on 08/18/23 11:08 UA Bilirubin 0 mg/dL Last Edit by MILKA Liang on 08/18/23 11:08 UA Glucose 0 mg/dL Last Edit by IMLKA Liang on 08/18/23 11:08 Results Reviewed Results Reviewed: Date of Service: 08/04/23 EXAMINATION: US RETROPERITONEAL LIMITED (RENAL ONLY) CLINICAL INFORMATION: Calculus of kidney. COMPARISON: US abdomen complete with liver elastography 12/03/2022. Renal ultrasound 04/01/2022. CT abdomen and pelvis 12/27/2021. TECHNIQUE: Real-time imaging of the kidneys. Limited visualization due to bowel gas. FINDINGS: RIGHT KIDNEY: 11.9 x 5.7 x 5.4 cm (SAG x AP x TRV). No hydronephrosis. No renal calculi. Renal cortical thickness is normal. Limited visualization. LEFT KIDNEY: 11.4 x 5.5 x 4.7 cm (SAG x AP x TRV). No hydronephrosis. Renal cortical thickness is normal. Limited visualization. 3 mm mid pole, 3 mm lower pole and 2 mm lower pole calculi. IMPRESSION: Left nephrolithiasis. No hydronephrosis. Date of Service: 12/27/21 EXAMINATION: CT ABDOMEN AND PELVIS WITHOUT CONTRAST? CLINICAL INFORMATION: 46-year-old male with left flank pain.? COMPARISON: Abdomen ultrasound from 05/15/2019 and 06/25/2021.? FINDINGS: LUNG BASES: Normal. No pulmonary consolidation or pleural effusion.? LIVER: Mild hepatomegaly. Liver parenchyma has attenuation of approximately 35 Hounsfield units, consistent with steatosis. No focal lesions are seen on these noncontrast images. GALLBLADDER AND BILIARY TREE: Gallbladder is without radiopaque stones, wall thickening or pericholecystic fluid.? No dilated bile ducts. PANCREAS: Normal. No edema, pancreatic ductal dilatation or mass.? SPLEEN: Normal.? ADRENAL GLANDS: Normal.? KIDNEYS AND URETERS: The right kidney appears to have a few punctate calyceal stones, as seen on the 0.6 mm axial images, but is otherwise unremarkable. The left kidney has a punctate calyceal stone in its lower pole and 0.4 cm stone in its upper pole. Mild hydronephrosis and moderate hydroureter are caused by a 0.3 x 0.5 x 0.7 stone in the distal ureter located just above the level of the ureterovesical junction. BLADDER:? Normal. No calculi or wall thickening. BOWEL AND PERITONEUM: Stomach is unremarkable. No dilated loops of bowel. The appendix is normal. No overt bowel wall thickening or mesenteric fat stranding. No free fluid or pneumoperitoneum. ABDOMINAL WALL: Incidentally noted is a fat-containing left inguinal hernia.? VASCULATURE: Unremarkable. LYMPH NODES: No pathologic sized lymph nodes in the abdomen or pelvis. No inguinal lymphadenopathy. PELVIC VISCERA: Unremarkable. SKELETAL: Bone islands of each femoral head. No suspicious bone lesions. Mild spondylosis of the visualized lower thoracic and lumbar spine. 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 IMPRESSION: *? Left-sided hydronephrosis is caused by a 0.3 x 0.5 x 0.7 cm stone of the distal ureter. *? Small, 0.4 cm stone is present in the upper pole of the left kidney. Also, there appear to be a few punctate calyceal stones. *? Mild hepatomegaly and diffuse hepatic steatosis. Assessment & Plan Assessment & Plan (1) Renal calculi: Code(s): N20.0 - Calculus of kidney Category: Medical (2) Calcium nephrolithiasis: Code(s): N20.0 - Calculus of kidney Category: Medical Plan Renal Calculi. Stone analysis: Calcium Oxalate. Instructed on importance of fluid intake, Low oxalate diet, low sodium diet. Follow-up 1 year renal ultrasound prior Orders: Orders US renal BI 11 Months N20.0 - Calculus of kidney AMB Urinalysis Automated Today Z13.9 - Encounter for screening, unspecified Coding Level of Care Code Est Pt Level 3 (33821) Diagnoses Renal calculi N20.0 Calcium nephrolithiasis N20.0
== END 2023-08-18 10:51 | disposition home or self-care (01) ==
PROVIDERS: PCP Internal Medicine; Visit Provider Urology
DX: Z13.9 Encounter for screening, unspecified (principal); N20.0 Calculus of kidney
CPT/HCPCS: 99213

== ENCOUNTER → 2023-08-18 10:15 | Outpatient (BNVA) | payer OTHER, SELFPAY | PROVIDERS: PCP Internal Medicine; Visit Provider Urology | DX: N20.0 Calculus of kidney (principal) | CPT/HCPCS: 81003; 99212 ==

== ENCOUNTER 2023-10-06 11:02 | Emergency (ER) | payer OTHER, SELFPAY ==
--- NOTE | 2023-10-06 | ECG_ITS ---
Test Reason : htn Blood Pressure : / mmHG Vent. Rate : 061 BPM Atrial Rate : 061 BPM P-R Int : 166 ms QRS Dur : 110 ms QT Int : 388 ms P-R-T Axes : -04 -72 008 degrees QTc Int : 390 ms Normal sinus rhythm Left axis deviation Abnormal ECG When compared with ECG of 11-MAY-2023 14:00, Incomplete right bundle branch block is no longer Present Referred By: Generic ED Physician Electronically Signed By:YAID BUENROSTRO MD
[2023-10-06 11:39] VITALS: BP 133/88; PULSE 72; RESP 18; TEMP 36.8; O2SAT 96; BMI 29.1
--- NOTE | 2023-10-06 11:45 | ED.GENADULT ---
HPI - General Adult General Chief complaint: Recheck/Abnormal Lab/Rx Stated complaint: high bp Time Seen by Provider: 10/06/23 13:17 Source: patient Mode of arrival: ambulatory Limitations: no limitations History of Present Illness ED Provider: Paloma Ledesma PA-C HPI narrative: 48-year-old male with history of hypertension on losartan 25 mg per day, history of kidney stones, history of chest pain in the past with a negative cardiac workup who presents to the ER for evaluation of elevated blood pressure at home yesterday. Patient reports yesterday his blood pressure was 155/111 when he took it last night. He states he was anxious and nervous, he felt ?off. ? he reported some chest pain at the time that has since resolved. It was sharp and nonradiating. States he has had several episodes of this in the past. He has had a normal stress test per his report. He states his blood pressure often fluctuates. He does not take it every day. He denies any excessive salt intake or weight gain. He denies any vision changes, headaches, dizziness or chest pain today. No nausea, vomiting, abdominal pain. He has been compliant with his losartan. complaint: Elevated blood pressure yesterday Onset (ago): day(s) (1) Severity: moderate Pain Consistency: now resolved Relieving factors: rest Associated symptoms: diaphoresis and other (Dizziness) Treatments prior to arrival: none Related Data Home Medications ?Medication ?Instructions ?Recorded ?Confirmed ursodiol 500 mg tablet 500 mg PO DAILY 03/03/22 08/18/23 Allergies Allergy/AdvReac Type Severity Reaction Status Date / Time No Known Allergies Allergy Verified 10/06/23 11:42 [No Known Allergies*] Review of Systems Review of Systems: Yes all other systems are reviewed and are negative [facility] Past Medical History Attestation statement: The following information was validated with the patient. Source: old records reviewed and nursing notes reviewed Medical History Hyperlipidemia Asthma Dysuria Fatty liver Surgical History H/O esophagogastroduodenoscopy Hx of knee surgery Family History Family History Father HTN (hypertension) Mother HTN (hypertension) Social History Social History Patient Tobacco Use Status: Never used Tobacco Advance Directives: No Do you have a plan to hurt others: No Plan Physical Exam ED Vital Signs: Vital Signs - 24 hr 10/06/23 11:39 Temperature 98.2 F Pulse Rate 72 Respiratory Rate 18 Blood Pressure 133/88 Pulse Oximetry 96 Oxygen Delivery Method Room Air BMI result Body Mass Index 29.1 Appearance: Alert. Oriented X3. No acute distress. Head: normocephalic, atraumatic. Eyes: Pupils equal, round and reactive to light. ENT: Pharynx normal. No tonsillar swelling or exudate. Neck: Normal inspection. Neck supple. CVS: Normal heart rate and rhythm. Pulses normal. Respiratory: No respiratory distress. Breath sounds normal. Abdomen: Soft and nontender. +BS x4 Skin: Skin warm and dry. Normal skin color. Normal skin turgor. No rashes. Extremities: No lower extremity edema. No joint swelling. Neuro/psych: Oriented X 3. Grossly normal, nonfocal Const General: cooperative, healthy appearing, comfortable and no acute distress Orientation/consciousness: patient oriented x3 Limitations: no limitations HENMT Head: Yes normal to inspection, Yes No palpable skull fracture present, Yes normocephalic and Yes atraumatic Eyes General: appearance normal, both eyes and all related structures Conjunctivae: conjunctivae normal Sclerae: sclerae normal Pupils: Equal, round and reactive pupils present EOM: EOMs intact bilaterally Neck Neck: Yes normal visual inspection, Yes full ROM, Yes no lymphadenopathy and Yes no JVD Chest Chest palpation & inspection: normal inspection of the chest and normal palpation of entire chest wall Resp Effort & Inspection: normal respiratory effort and able to speak in complete sentences Auscultation: clear to auscultation bilaterally Cardio Jugular venous distension: no JVD Rate: regular rate Rhythm: regular rhythm GI Inspection: Yes normal to inspection Skin General skin exam: no rashes or lesions noted Neuro General: patient oriented x3 and gait normal Cranial nerves: Yes Equal, round and reactive pupils present Extrem General: Yes normal to inspection Course Course Course Narrative: This is a Rapid Medical Examination (RME) performed by Nathalia Crowe PA-C in triage. Full HPI, ROS, assessment and treatment plan per primary provider in the Main ED. 48 yo male hx HTN here for elevated bp at home. reports high bp reading of 155/35 yesterday. endorses assoc dizziness. admits to sternal, non radiating cp last night which has since resolved. denies FELIPE, vision changes, light headedness. compliant w/ bp meds, took this morning. + well appearing. bp wnl. Plan: labs, EKG Medical Decision Making Medical Decision Making [facility] Narrative: 48-year-old male presents to the ER for evaluation of transient elevated blood pressure yesterday associated with dizziness, diaphoresis and increased anxiety. Several episodes of the same in the past. Blood pressure is within normal limits in triage. Patient denies any current symptoms. He admits to increasing anxiety over the labile blood pressure readings he gets at home. He is worried he may need increase blood pressure medications. We discussed the importance of monitoring his blood pressure at home, keeping represented for his PCP, and following up with his primary care doctor. We also discussed return precautions and cardiac warning signs. Stable for discharge home with continuation of losartan, dietary and activity modifications, follow-up with PCP Differential diagnosis includes ACS, arrhythmia, costochondritis, pleuritis, msk sprain/ strain, viral syndrome, pneumonia. Lower suspicion for PE, effusion, rupture aneurysm. Plan for labs, ekg, cxr, and re-evaluation. Differential Diagnosis Differential Diagnoses: The differential diagnosis associated with the presentation includes as above. Admission/Observation Consideration of admission/observation: Escalation of care including admission/observation considered Lab Data [facility] Lab Attestation statement: I reviewed the patient's lab results. as above. 10/06/23 12:01 10/06/23 12:01 Labs: Lab Results 10/06/23 Range/Units 12:01 WBC 10.3 (4.8-10.8) X10*3/uL RBC 5.00 (4.60-5.80) X10*6/uL Hgb 16.8 (14.0-18.0) g/dl Hct 47.2 (42.0-52.0) % MCV 94.4 (80.0-98.0) fL MCH 33.6 H (27.0-33.0) pg MCHC 35.6 (31.0-36.0) g/dl RDW 12.5 (11.0-16.0) % Plt Count 265 (160-400) X10*3/uL MPV 9.2 L (9.4-12.4) fL Immature Gran % (Auto) 0.5 H (0.0-0.4) % Neut % (Auto) 53.9 (45-73) % Lymph % (Auto) 35.2 (20-40) % Dale % (Auto) 8.5 (2-11) % Eos % (Auto) 1.3 (0-4) % Baso % (Auto) 0.6 (0-2) % Lymph # (Auto) 3.6 (1.2-4.9) X10*3/uL Dale # (Auto) 0.9 (0.1-1.2) X10*3/uL Eos # (Auto) 0.1 (0.0-0.4) X10*3/uL Baso # (Auto) 0.1 (0.0-0.2) X10*3/uL Abs Immat Gran (auto) 0.05 H (0.00-0.03) X10*3/uL Absolute Neuts (auto) 5.6 (2.0-8.3) x10*3/uL Absolute Nucleated RBC 0.000 (0.0-0.012) X10*3/uL Nucleated RBC % (auto) 0.0 (0.0-0.2) /100WBC Sodium 141 (135-145) mmol/L Potassium 4.3 D (3.3-5.1) mmol/L Chloride 104 (96-108) mmol/L Carbon Dioxide 28 (22-29) mmol/L Anion Gap 13 (12-20) BUN 10 (9-16) mg/dL Creatinine 0.84 (0.5-1.4) mg/dL Estim Creat Clear Calc 106.7 Estimated GFR > 60 Random Glucose 97 (60-115) mg/dL Calcium 10.5 H D (8.4-10.2) mg/dL Total Bilirubin 0.5 (0.0-1.0) mg/dL AST 35 (5-37) U/L ALT 68 H (0-40) U/L Alkaline Phosphatase 62 (39-117) U/L Troponin I High Sens < 2.7 (<3.5-35.0) ng/L Total Protein 8.2 H (6.5-8.0) g/dL Albumin 4.5 (3.5-5.0) g/dL Independent Interpretation I performed an independent interpretation of an: EKG Interpretation: EKG with normal sinus rhythm, ventricular rate 61 beats per minute, normal QTC, normal LA interval External Record Review External record reviewed: Inpatient record, Office record, Outpatient record, Prior outpatient labs, Prior outpatient radiology, Primary care record and Outside ED record Prescription Management I considered prescription management with: Pain Medication and Other (Antihypertensive) Chronic Conditions Patient?s care impacted by: Hypertension Social Determinants Patient?s care significantly limited by Social Determinants of Health including: Other Social Determinant of Health Critical Care Time Critical Care Time Critical Care Time: No Discharge Plan Discharge Clinical Impression: Hypertension Qualifiers: Hypertension type: unspecified Qualified Code(s): I10 - Essential (primary) hypertension Patient Disposition: Home, Self-Care Instructions: Hypertension (ED) Additional Instructions: Your lab workup, EKG were all unremarkable and reassuring today. Recommend continuing your losartan medication as prescribed for your blood pressure. Monitor your blood pressure once per day, keep a record for your primary care doctor. Recommend decreasing your salt intake. Increase your exercise and aerobic activity. If you develop new or worsening symptoms call 911 or come back to the ER for further evaluation. Prescriptions: No Action ursodiol 500 mg tablet 500 mg PO DAILY Print Language: British
--- OUTSIDE RECORDS SUMMARY | 2023-10-06 11:46 | XMS_ITS ---
Author Organization [facility] Address [address] [place] [address] Care Team Providers Care Cyber Security Instructor Name Role Phone Patrick Moody MD Primary Care Provider Jourdan Kelly [phone] ALLERGIES No Known Allergies REASON FOR VISIT Patient presents today for liver fibrosis MEDICATIONS Medication SIG (Take, Route, Frequency, Duration) Notes Start Date End Date Status Ursodiol 500mg 3 Orally Every day Active Ursodiol 300 MG 3 every morning and 2 every evening Orally Twice a day for 30 day(s) 07/27/2021 Active Ursodiol 300 MG TAKE 2 CAPSULES BY M OUTH TWICE A DAY for 90 Active Motrin IB 200 MG 1 tablet with food o r milk as needed Orally prn Active Multi Vitamin/Minerals - as directed Ora lly once a day Active Ursodiol 500 MG TAKE 2 TABLETS EVERY MORNING AND 1 EVERY EVENING ORALLY TWICE A DAY 30 DAY(S) for 90 Active SOCIAL HISTORY Tobacco Use: Social History Observation Description Date Details (start date - stop date) Never Smoker NA - NA Sex Assigned At : Social History Observation Description Sex Assigned At Unknown Tobacco Use/Smoking Question Answer Notes Patient is a nonsmoker Alcohol Screen Question Answer Notes Did you have a drink contain ing alcohol in the past year? Yes How often did you have a dri nk containing alcohol in the past year? Monthly or less (1 point) How many drinks did you have on a typical day when you were drinking in the past year? 1 or 2 drinks (0 point) How often did you have 6 or more drinks on one occasion in the past year? Never (0 point) Points 1 Interpretation Negative VITAL SIGNS BMI 29.52 kg/m2 11/05/2022 Blood pressure systolic 000 mm Hg 11/06/19 23 Blood pressure diastolic 00 mm Hg 023 Height 65 in 11/05/2022 Temperature 98.2 degrees Fahrenheit 11/06/19 23 Weight 177.4 lbs 11/05/2022 Encounters Encounter Location Date Provider Diagnosis [facility] [address] [place] [address] 11/05/2022 Jourdan Sotelo Fatty liver K76.0 ; Elevated liver function tests R94.5 and Liver fibrosis K74.00 ASSESSMENTS Encounter Date Diagnosis Assessment Notes Treatment Notes Treatment Clinical Notes 11/05/2022 Fatty liver (ICD-10 - K76.0) 11/05/2022 Elevated liver function tests (ICD-10 - R94.5) 11/05/2022 Liver fibrosis (ICD-10 - K74.00) 11/05/2022 Other PLAN OF TREATMENT Medication Medication Name Sig Start Date Stop Date Notes Ursodiol 500mg 3 Orally Every day Pending Test Test Name Order Date LIVER PROFILE 11/05/2022 CBC w DIFF 11/05/2022 ALPHA-FETOPROTEIN,TUMOR MARKER 3 Liver Fibrosis Pnl 11/05/2022 US abdomen comp w elastography 3 Next Appt Details Follow Up: 1 Year, Reason: Provider Name:Jourdan Sotelo , 11/04/2023 01:00:00 PM, [address], [address], [place], [address], Progress Notes * Examination Category Sub-Category Detail Notes General Examination GENERAL APPEARANCE: pleasant , well nourished, well developed, in no acute distress HEAD: EYES: sclera non-icteric EARS: NOSE: THROAT: NECK/THYROID: no cervical lymphade nopathy, neck supple HEART: S1, S2 normal CHEST: LUNGS: clear to auscultatio n bilaterally ABDOMEN: normal bowel sounds, no guarding or rigidity, no guarding or rigidity, no masses palpable, soft, nontender, nondistended NEUROLOGIC: alert and oriented SKIN: nonjaundiced, no spi silvino angiomata EXTREMITIES: no edema PERIPHERAL PULSES: BACK: BREASTS: MUSCULOSKELETAL: MALE GENITOURINARY: LYMPH NODES: RECTAL EXAM: FEMALE GENITOURINARY: ORAL CAVITY: mucosa moist
--- OUTSIDE RECORDS SUMMARY | 2023-10-06 11:46 | XMS_ITS ---
Author Organization [facility] Address [address] [place] [address] Care Team Providers Care Credit Office Manager Name Role Phone Patrick Moody MD Primary Care Provider Jourdan Kelly [phone] REASON FOR VISIT screening Encounters Encounter Location Date Provider Diagnosis [facility] [address] [address] [place], [place] [id number] 04/23/2022 Jourdan Sotelo Colon cancer scree juan r Z12.11 and Internal hemorrhoid K64.8 ASSESSMENTS Encounter Date Diagnosis Assessment Notes Treatment Notes Treatment Clinical Notes 04/23/2022 Colon cancer screening (ICD-10 - Z12.11) 04/23/2022 Internal hemorrhoid (ICD-10 - K64.8) PLAN OF TREATMENT Next Appt Details Provider Name:Jourdan Sotelo , 11/04/2023 01:00:00 PM, [address], [address], [place], [address],
--- OUTSIDE RECORDS SUMMARY | 2023-10-06 11:46 | XMS_ITS | Patient Health Record ---
Author Organization [facility] Address [address] [place] [address] Care Team Providers Care Compliance Project Manager Name Role Phone Patrick Moody MD Primary Care Provider Jourdan Kelly Unavailable [phone] ALLERGIES No Known Allergies RESULTS Component Value Reference Range Notes US abdomen comp w elastograp hy Reviewed date:09/11/2023 09:34:53 PM Interpretation: Performing Lab: Notes/Report: [address] [address] Ultrasound Report Signed Patient: Leonel Nix MR#: [id number] 04 : 1975 Acct:[id number] Age/Sex: 47 / M ADM Date: 12/03/22 Loc: HO.US Attending Dr: Jourdan Sotelo MD Ordering Physician: Jourdan Sotelo Date of Service: 12/03/22 Procedure(s): US abdomen comp w elastography Accession Number(s): [id number] cc: Jourdan Sotelo EXAMINATION: US COMPLETE ABDOMEN WITH LIVER ELASTOGRAPHY CLINICAL INFORMATION: Hepatic fibrosis. COMPARISON: Prior ultrasound examinations, most recently 04/01/2022; CT abdomen and pelvis dated 12/27/2021. TECHNIQUE: Real-time imaging of the abdominal viscera. Noninvasive ultrasound liver fibrosis assessment is performed using Marina ElastPQ point quantification shear wave elastography (2D-SWE) with a C5-2 MHz transducer. Multiple elastography samples are obtained. FINDINGS: PANCREAS: Normal. The visualized pancreatic head and body are normal in appearance. The remainder of the pancreas is obscured from visualization by the overlying bowel gas. ABDOMINAL AORTA: The proximal, middle, and distal aortic segments are normal in caliber. INFERIOR VENA CAVA: Visualized portions are normal. LIVER: The liver demonstrates normal size, contour and increased echogenicity. No focal lesion or intrahepatic biliary duct dilatation. The right lobe measures 17.7 cm in length. The left lobe measures 10.4 cm in length. Portal flow is towards the liver (hepatopetal). Shear wave liver elastography median stiffness is 1.05 m/s (reference: normal median stiffness is 1.3 m/s or less). IQR/median stiffness to assess sampling precision is 0.22 (reference: good quality data set is IQR/median stiffness of 0.15 or less). GALLBLADDER: Normal. The gallbladder is physiologically distended without evidence of stones, sludge, polyps, wall thickening or pericholecystic fluid. COMMON BILE DUCT: Normal in caliber measuring 0.2 cm in diameter. RIGHT KIDNEY: Normal. No hydronephrosis. No renal calculi or focal parenchymal lesions. The kidney measures 12.4 cm in maximum dimension. LEFT KIDNEY: At the upper pole, a 6 mm nonobstructing calculus is seen. At the lower pole, a 5 mm nonobstructing calculus is seen. No hydronephrosis. No renal calculi or focal parenchymal lesions. The kidney measures 11.8 cm in maximum dimension. SPLEEN: Normal. The spleen measures 9.1 cm in maximum dimension. FREE FLUID: None. US/US abdomen comp w elastography IMPRESSION: 1. There is generalized increase in hepatic echotexture, consistent with fatty infiltration or hepatocellular disease. Please correlate clinically. No focal hepatic mass or intrahepatic biliary dilatation is seen. 2. Liver elastography: Although measurements suggest a high probability of normal liver stiffness, there is statistical variability of the sampling which decreases accuracy. 3. There are nonobstructing left renal calculi. REFERENCE: Society of Radiologists in Ultrasound Liver Stiffness Thresholds (2020): LIVER STIFFNESS THRESHOLDS: *Liver Stiffness equal or less than 1.3 m/s: High probability of being normal. *Liver Stiffness less than 1.7 m/s: In the absence of other known clinical signs, rules out compensated advanced chronic liver disease. *Liver Stiffness 1.7-2.1 m/s: Suggestive of compensated advanced chronic liver disease but need further test for confirmation. *Liver Stiffness over 2.1 m/s: Rules in compensated advanced chronic liver disease. *Liver Stiffness over 2.4 m/s: Suggestive of clinically significant portal hypertension. QUALITY OF DATA SET: *IQR/Median value equal or less than 0.15 implies a quality data set. *IQR/Median value over 0.15 implies a poor quality data set. SIGNIFICANT CHANGE FROM PRIOR EXAM: Significant change if liver stiffness measurement is 10% or greater from prior exam. OTHER CONSIDERATIONS: The stage of liver fibrosis may be overestimated in the setting of acute hepatitis, liver inflammation, elevated liver function tests, hepatic vascular congestion, obstructive cholestasis, non-fasting state, and infiltrative diseases such as amyloidosis and lymphoma. In some patients with NAFLD, the liver stiffness thresholds for compensated advanced chronic liver disease may be lower. In causes other than viral hepatitis and NAFLD, liver stiffness thresholds are not well established. Dictated By: Ruben Rivera MD Signed By: <Electronically signed by Ruben Rivera MD in OV> 12/08/22 1457 DD/ 0957 TD/TT: Analytical Tech: TONY Complete Blood Count Auto Di ff Reviewed date:01/22/2023 09:30:42 PM Interpretation: Performing Lab:[facility], [address] [place] [id number] Notes/Report: White Blood Count 8.8 4.8-10.8 X10*3/uL Red Blood Count 5.04 4.60-5.80 X10*6/uL Hemoglobin 16.3 14.0-18.0 g/dl Hematocrit 47.1 42.0-52.0 % Mean Corpuscular Volume 93.5 80.0-98.0 fL Mean Corpuscular Hemoglobin 32.3 27.0-33.0 pg Mean Corpuscular HGB Conc 34.6 31.0-36.0 g/dl Red Cell Distribution Width 12.3 11.0-16.0 % Platelet Count 249 160-400 X10*3/uL Mean Platelet Volume 10.7 9.4-12.4 fL Neutrophils Percent Auto 42.2 45-73 % Imm Gran Pct Auto 0.2 0.0-0.4 % Lymphocytes Percent Auto 46.8 20-40 % Monocytes Percent Auto 7.4 2-11 % Eosinophils Percent Auto 2.5 0-4 % Basophils Percent Auto 0.9 0-2 % NRBC Pct Auto 0.0 0.0-0.2 /100WBC Neutrophils Absolute Auto 3.7 2.0-8.3 x10*3/u L Imm Gran Abs Auto 0.02 0.00-0.03 X10*3/uL Lymphocytes Absolute Auto 4.1 1.2-4.9 X10*3/u L Monocytes Absolute Auto 0.7 0.1-1.2 X10*3/uL Eosinophils Absolute Auto 0.2 0.0-0.4 X10*3/u L Basophils Absolute Auto 0.1 0.0-0.2 X10*3/uL NRBC Abs Auto 0.000 0.0-0.012 X10*3/uL Liver Panel Reviewed date:09/11/2023 09:32:39 PM Interpretation: Performing Lab:[address] [address] Notes/Report: Bilirubin Total 0.6 0.0-1.0 mg/dL Bilirubin Direct 0.2 0.0-0.5 mg/dL Aspartate Amino Transferase 54 5-37 U/L Alanine Aminotransferase 109 0-40 U/L Total Protein 7.8 6.5-8.0 g/dL Albumin Level 4.2 3.5-5.0 g/dL Alkaline Phosphatase 76 39-117 U/L Alpha Fetoprotein Reviewed date:01/27/2023 05:41:45 PM Interpretation: Performing Lab:[address] [address] Notes/Report: Alpha Fetoprotein 3.8 <6.1 ng/mL This test was performed using the Rachel Calcium chemiluminescent method. Values obtained from different assay methods cannot be used interchangeably. AFP levels, regardless of value, should not be interpreted as absolute evidence of the presence or absence of disease. THIS TEST WAS PERFORMED AT: [facility] [address] [place] [phone] LUCILA CARROLL MD Liver Fibrosis Pnl Reviewed date:01/27/2023 10:34:03 PM Interpretation: Performing Lab:[address] [address] Notes/Report: Liver Fibrosis Score 0.42 Liver Fibrosis Stage F1-F2 Liver Fibrosis Interpretation SEE NOTE minimal fibrosis Fibro Test Score (f) Metavir Score f>=0 and f<=0.21 : F0 (no fibrosis) f>0.21 and f<=0.27 : F0-F1 (no fibrosis) f>0.27 and f<=0.31 : F1 (minimal fibrosis) f>0.31 and f<=0.48 : F1-F2 (minimal fibrosis) f>0.48 and f<=0.58 : F2 (moderate fibrosis) f>0.58 and f<=0.72 : F3 (advanced fibrosis) f>0.72 and f<=0.74 : F3-F4 (advanced fibrosis) f>0.74 and f<=1.00 : F4 (severe fibrosis) Nec Inflam Act Score 0.60 Nec Inflam Act Grade A2 Nec Inflam Act Interpretation SEE NOTE significant activity ActiTest Score (a) Metavir Score a>=0 and a<=0.17 : A0 (no activity) a>0.17 and a<=0.29 : A0-A1 (no activity) a>0.29 and a<=0.36 : A1 (minimal activity) a>0.36 and a<=0.52 : A1-A2 (minimal activity) a>0.52 and a<=0.60 : A2 (significant activity) a>0.60 and a<=0.62 : A2-A3 (significant activity) a>0.62 and a<=1.00 : A3 (severe activity) [id number]-Macroglobulin 331 106-279 mg/dL FIB-Haptoglobin 165 43-212 mg/dL FIB-Apolipoprotein A1 136 94-176 mg/dL FIB-Total Bilirubin 0.5 0.2-1.2 mg/dL FIB-GGT 37 3-95 U/L FIB-ALT 96 9-46 U/L Reference ID [id number] Footnote SEE NOTE The reliability of results is dependent on compliance with the preanalytical and analytical conditions recommended by [employer]. The tests have to be deferred for: acute hemolysis, acute hepatitis, acute inflammation, extra hepatic cholestasis. The advice of a specialist should be sought for interpretation in chronic hemolysis and Gilbert's syndrome. The test interpretation is not validated in liver transplant patients. Isolated extreme values of one of the components should lead to caution in interpreting the results. In case of discordance between a biopsy result and a test, it is recommended to seek the advice of a specialist. The causes of these discordances could be due to a flaw of the test or to a flaw in the biopsy: i.e. a liver biopsy has a 33% variability rate for one fibrosis stage. FibroTest is interpretable for chronic hepatitis B and C, alcoholic and non alcoholic steatosis. ActiTest is interpretable for chronic hepatitis B and C. The performance characteristics have been determined by [facility]. It has not been cleared or approved by the U.S. Food and Drug Administration. Performance characteristics refer to the analytical performance of the test. PS DEPT., the associated logo, [employer] and all associated [employer] kim are the registered trademarks of [employer]. All third democrat kim - (R) and (TM) - are the property of their respective owners. (C) [id number] [employer]. All rights reserved. THIS TEST WAS PERFORMED AT: [employer] [facility] [address] [place] [address] BENITO GARCIA MD,PHD,MIRNA REASON FOR REFERRAL No Information MEDICATIONS Medication SIG (Take, Route, Frequency, Duration) Notes Start Date End Date Status Ursodiol 500 MG TAKE 2 TABLETS EVERY MORNING AND 1 EVERY EVENING ORALLY TWICE A DAY for 90 Active Ursodiol 300 MG 3 every morning and 2 every evening Orally Twice a day for 30 day(s) 07/27/2021 Active Ursodiol 300 MG TAKE 2 CAPSULES BY M OUTH TWICE A DAY for 90 Active Motrin IB 200 MG 1 tablet with food o r milk as needed Orally prn Active Multi Vitamin/Minerals - as directed Ora lly once a day Active IMMUNIZATIONS Vaccine Route Administration Date Status Comme nts Influenza Unknown 12/29/2018 Administered Influenza Unknown 11/07/2019 Administered Influenza Unknown 12/17/2020 Administered Influenza Unknown 11/28/2021 Administered Influenza Unknown 01/06/2018 Refused SOCIAL HISTORY Tobacco Use: Social History Observation [...] Never (0 point) Points 1 Interpretation Negative PROBLEMS Problem Type ICD Code Onset Dates Problem Status W/U Status Risk SNOMED Code Notes Problem Colon cancer screening (Z12.11) Active confirmed 953904212 Problem Elevated liver function tests (R79.89) Active confirmed 487725228 Problem Elevated liver enzymes (R74.8) Active confirmed 562238641 Problem Fatty liver (K76.0) Active confirmed 530520359 Problem Elevated liver function tests (R94.5) Active confirmed 342584868 Problem Liver fibrosis (K74.00) Active confirmed Hepatic fibrosis (59735918) Problem Fibrosis of liver (K74.00) Active confirmed 64531671 VITAL SIGNS Temperature 98.2 degrees Fahrenheit 11/05/2022 Blood pressure diastolic 00 mm Hg 11/05/2022 Height 65 in 11/05/2022 Blood pressure systolic 000 mm Hg 11/05/2022 Weight 177.4 lbs 11/05/2022 BMI 29.52 kg/m2 11/05/2022 Encounters Encounter Location Date Provider Diagnosis [facility] [address] [place] [phone] 11/05/2022 Jourdan Sotelo Fatty liver K76.0 ; Elevated liver function tests R94.5 and Liver fibrosis K74.00 ASSESSMENTS Encounter Date Diagnosis Assessment Notes Treatment Notes Treatment Clinical Notes 11/05/2022 Fatty liver (ICD-10 - K76.0) 11/05/2022 Elevated liver function tests (ICD-10 - R94.5) 11/05/2022 Liver fibrosis (ICD-10 - K74.00) 11/05/2022 Other PLAN OF TREATMENT Pending Test Test Name Order Date LIVER PROFILE 12/07/2019 LIVER PROFILE 11/05/2022 LIVER PROFILE 02/04/2015 LIVER PROFILE 09/29/2021 LIVER PROFILE 02/22/2015 LIVER PROFILE 03/04/2022 LIVER PROFILE 05/04/2019 LIVER PROFILE 06/04/2021 LIVER PROFILE 04/11/2020 LIVER PROFILE 07/27/2021 LIVER PROFILE 05/15/2019 LIVER PROFILE 04/22/2021 LIVER PROFILE 03/14/2022 CBC w DIFF 07/27/2021 CBC w DIFF 04/22/2021 CBC w DIFF 12/07/2019 CBC w DIFF 11/05/2022 CBC w DIFF 06/04/2021 PROTHROMBIN TIME (PT, INR) 06/04/2021 PROTHROMBIN TIME (PT, INR) 12/07/2019 PARTIAL THROMBOPLASTIN TIME (PTT) 2021 ALPHA-FETOPROTEIN,TUMOR MARKER 3 US LIVER BIOPSY CORE GUIDE 06/04/2021 HCV LIVER FIBROSIS, FIBRO TEST 2 HCV LIVER FIBROSIS, FIBRO TEST 0 US ABDOMEN COMP WITH ELASTOGRAPHY 2021 Prothrombin Time INR 07/27/2021 Prothrombin Time INR 04/22/2021 Liver Fibrosis Pnl 11/05/2022 US abdomen comp w elastography 3 Future Test Test Name Order Date COLONOSCOPY 03/04/2022 Next Appt Details Provider Name:Jourdan Sotelo , 11/04/2023 01:00:00 PM, [address] [place] [address], [address], [place], [address], Insurance Providers Payer Name Payer Address Payer Phone Subscriber Number Group Number Insured Name Patient Relationship to Insured Coverage Start Date Coverage End Date [address] [address] [id number] LEONEL NIX Self - patient is the insured MEDICAL (GENERAL) HISTORY Medical History History ICD Code EGD [id number] HH--no esophagitis, n o [facility]'s Fatty liver--biopsy in 1999- fatty liver and mild inflammation-no fibrosis--neg.abdominal U/S in 2010---stopped Jose before 2013, but resumed in early 2019 Asthma Denies AK,DM,CVA,renal disease UTI's Liver biopsy in May revealed evidence of the fatty liver, inflammation, and some fibrosis with early bridging. There was no cirrhosis. Hyperlipidemia Kidney stones Negative screening colonoscopy in 03/2022 Surgical History Surgery Date(Month/Year) Left knee arthroscopy 08/2018
--- OUTSIDE RECORDS SUMMARY | 2023-10-06 11:46 | XMS_ITS ---
Author Organization [facility] Address [address] [place] [address] Care Team Providers Care Data Entry Coordinator Name Role Phone Patrick Moody MD Primary Care Provider Jourdan Kelly [phone] REASON FOR VISIT please schedule f/u with Dr. Sotelo Encounters Encounter Location Date Provider Diagnosis [facility] [address] [place] [address] 04/26/2022 Jourdan Sotelo PLAN OF TREATMENT Next Appt Details Provider Name:Jourdan Sotelo , 11/04/2023 01:00:00 PM, [address], [address], [place], [address],
[2023-10-06 12:05] LABS: MANUAL DIFF FLAG NO
[2023-10-06 12:08] LABS: Basophils Absolute Auto 0.1 X10*3/uL (0.0-0.2); Basophils Percent Auto 0.6 % (0-2); Eosinophils Absolute Auto 0.1 X10*3/uL (0.0-0.4); Eosinophils Percent Auto 1.3 % (0-4); Hematocrit 47.2 % (42.0-52.0); Hemoglobin 16.8 g/dl (14.0-18.0); Imm Gran Abs Auto 0.05 X10*3/uL (0.00-0.03); Imm Gran Pct Auto 0.5 % (0.0-0.4); Lymphocytes Absolute Auto 3.6 X10*3/uL (1.2-4.9); Lymphocytes Percent Auto 35.2 % (20-40); Mean Corpuscular HGB Conc 35.6 g/dl (31.0-36.0); Mean Corpuscular Hemoglobin 33.6 pg (27.0-33.0); Mean Corpuscular Volume 94.4 fL (80.0-98.0); Mean Platelet Volume 9.2 fL (9.4-12.4); Monocytes Absolute Auto 0.9 X10*3/uL (0.1-1.2); Monocytes Percent Auto 8.5 % (2-11); Neutrophils Absolute Auto 5.6 x10*3/uL (2.0-8.3); Neutrophils Percent Auto 53.9 % (45-73); Platelet Count 265 X10*3/uL (160-400); Red Cell Distribution Width 12.5 % (11.0-16.0); White Blood Count 10.3 X10*3/uL (4.8-10.8)
[2023-10-06 12:28] LABS: Alanine Aminotransferase 68 U/L (0-40); Albumin Level 4.5 g/dL (3.5-5.0); Alkaline Phosphatase 62 U/L (39-117); Anion Gap 13 (12-20); Aspartate Amino Transferase 35 U/L (5-37); Bilirubin Total 0.5 mg/dL (0.0-1.0); Blood Urea Nitrogen 10 mg/dL (9-16); Calcium 10.5 mg/dL (8.4-10.2); Carbon Dioxide 28 mmol/L (22-29); Chloride 104 mmol/L (96-108); Creatinine Clr Calc Pharmacy 106.7; Estimated Glomerular Filt Rate > 60; Glucose Random 97 mg/dL (60-115); Potassium 4.3 mmol/L (3.3-5.1); Sodium 141 mmol/L (135-145); Total Protein 8.2 g/dL (6.5-8.0)
[2023-10-06 12:44] LABS: Troponin-I High Sensitivity < 2.7 ng/L (<3.5-35.0)
== END 2023-10-06 18:16 | disposition home or self-care (01) ==
PROVIDERS: Emergency Provider Emergency Medicine; PCP Internal Medicine
DX: I10 Essential (primary) hypertension (principal); E78.5 Hyperlipidemia, unspecified; J45.909 Unspecified asthma, uncomplicated; Z79.899 Other long term (current) drug therapy
CPT/HCPCS: 36415; 80053; 84484; 85025; 93005; 99283

== ENCOUNTER → 2023-10-06 11:51 | Outpatient (BNV) | payer OTHER, SELFPAY | PROVIDERS: Emergency Provider Emergency Medicine; PCP Internal Medicine; Visit Provider Internal Medicine Cardiovascular Disease | DX: R94.31 Abnormal electrocardiogram [ECG] [EKG] (principal) | CPT/HCPCS: 93010 ==

== ENCOUNTER 2023-11-09 09:11 | Outpatient (REF) | payer OTHER, SELFPAY ==
--- NOTE | ~2023-11-09 | US_ITS ---
EXAMINATION: US COMPLETE ABDOMEN WITH LIVER ELASTOGRAPHY CLINICAL INFORMATION: Fatty liver. COMPARISON: Liver ultrasound with Elastoplasty 12/03/2022 TECHNIQUE: Real-time imaging of the abdominal viscera. Noninvasive ultrasound liver fibrosis assessment is performed using Marina ElastPQ point quantification shear wave elastography (pSWE) with a C5-2 MHz transducer. Multiple elastography samples are obtained. FINDINGS: PANCREAS: The visualized pancreatic head and body are normal in appearance. The remainder of the pancreas is obscured from visualization by the overlying bowel gas. ABDOMINAL AORTA: The proximal, middle, and distal aortic segments are normal in caliber. INFERIOR VENA CAVA: Visualized portions are normal. LIVER: Liver is echogenic consistent with hepatic steatosis. There is focal fatty sparing seen adjacent to the gallbladder. No focal lesion or intrahepatic biliary duct dilatation. The right lobe measures 17.0 cm in length. The left lobe measures 9.3 cm in length. Portal flow is towards the liver (hepatopetal). Shear wave liver elastography median stiffness is 1.52 m/s (reference: normal median stiffness is 1.3 m/s or less). Previously this value was 1.05. IQR/median stiffness to assess sampling precision is 0.34 (reference: good quality data set is IQR/median stiffness of 0.15 or less). Previously this value was 0.22. GALLBLADDER: Normal. The gallbladder is physiologically distended without evidence of stones, sludge, polyps, wall thickening or pericholecystic fluid. COMMON BILE DUCT: Normal in caliber measuring 0.4 cm in diameter. RIGHT KIDNEY: Normal. No hydronephrosis. No renal calculi or focal parenchymal lesions. The kidney measures 12.2 cm in maximum dimension. LEFT KIDNEY: Two 8 mm echogenic foci seen in the left kidney with twinkle artifact consistent with nonobstructing calculi. No hydronephrosis. No focal parenchymal lesions. The kidney measures 11.0 cm in maximum dimension. SPLEEN: Normal. The spleen measures 9.4 cm in maximum dimension. FREE FLUID: None. US/US abdomen comp w elastography IMPRESSION: 1. Hepatic steatosis with incidentally noted nonobstructing left renal calculi. 2. Liver elastography: Although measurements appear to rule out compensated advanced chronic liver disease, there is statistical variability of the sampling which decreases accuracy. When compared with prior exam, there is a statistically significant increase in liver stiffness (increase at least 10%), although diagnostic sampling quality is now suboptimal. REFERENCE: Society of Radiologists in Ultrasound Liver Stiffness Thresholds (2020): LIVER STIFFNESS THRESHOLDS: *Liver Stiffness equal or less than 1.3 m/s: High probability of being normal. *Liver Stiffness less than 1.7 m/s: In the absence of other known clinical signs, rules out compensated advanced chronic liver disease. *Liver Stiffness 1.7-2.1 m/s: Suggestive of compensated advanced chronic liver disease but need further test for confirmation. *Liver Stiffness over 2.1 m/s: Rules in compensated advanced chronic liver disease. *Liver Stiffness over 2.4 m/s: Suggestive of clinically significant portal hypertension. QUALITY OF DATA SET: *IQR/Median value equal or less than 0.15 implies a quality data set. *IQR/Median value over 0.15 implies a poor quality data set. SIGNIFICANT CHANGE FROM PRIOR EXAM: Significant change if liver stiffness measurement is 10% or greater from prior exam. OTHER CONSIDERATIONS: The stage of liver fibrosis may be overestimated in the setting of acute hepatitis, liver inflammation, elevated liver function tests, hepatic vascular congestion, obstructive cholestasis, non-fasting state, and infiltrative diseases such as amyloidosis and lymphoma. In some patients with NAFLD, the liver stiffness thresholds for compensated advanced chronic liver disease may be lower. In causes other than viral hepatitis and NAFLD, liver stiffness thresholds are not well established. Electronically signed by: Cale Rich MD 11/12/2023 12:35 PM EDT
[2023-11-09 12:20] LABS: Alanine Aminotransferase 59 U/L (0-40); Albumin Level 4.4 g/dL (3.5-5.0); Alkaline Phosphatase 65 U/L (39-117); Aspartate Amino Transferase 31 U/L (5-37); Bilirubin Direct 0.2 mg/dL (0.0-0.5); Bilirubin Total 0.7 mg/dL (0.0-1.0)
[2023-11-16 14:33] LABS: FIB-ALT 29 U/L (9-46); FIB-Alpha-2-Macroglobulin 328 mg/dL (106-279); FIB-Apolipoprotein A1 151 mg/dL (94-176); FIB-GGT 31 U/L (3-95); FIB-Haptoglobin 175 mg/dL (43-212); FIB-Total Bilirubin 0.7 mg/dL (0.2-1.2); Liver Fibrosis Score 0.41; Liver Fibrosis Stage F1-F2; Nec Inflam Act Grade A0; Nec Inflam Act Score 0.16
== END 2023-11-09 09:12 | disposition home or self-care (01) ==
LOC: HO.US 09:11
PROVIDERS: PCP Internal Medicine; Visit Provider Internal Medicine
DX: K76.0 Fatty (change of) liver, not elsewhere classified (principal); R94.5 Abnormal results of liver function studies; K74.00 Hepatic fibrosis, unspecified
CPT/HCPCS: 36415; 76700; 76981; 80076; 81596; 82105

== ENCOUNTER 2023-12-28 10:17 | Emergency (ER) | payer OTHER, SELFPAY ==
--- NOTE | ~2023-12-28 | XR_ITS ---
EXAMINATION: XR CHEST CLINICAL INFORMATION: Resolved chest pain COMPARISON: 05/11/23 TECHNIQUE: Frontal view of the chest was obtained. FINDINGS: No significant abnormality is noted involving the heart, lungs, mediastinum, bony thorax or soft tissues. XR/XR chest 1V IMPRESSION: Unremarkable examination. Electronically signed by: Cale Rich MD 12/28/2023 12:12 PM EDT RP
--- NOTE | ~2023-12-28 | CT_ITS ---
EXAMINATION: CT HEAD WITHOUT CONTRAST CLINICAL INFORMATION: dizzy COMPARISON: None available. TECHNIQUE: Contiguous axial imaging was performed from the skull base to vertex without intravenous administration of contrast. This CT examination was performed using dose optimization techniques as appropriate, variously including the following: *Automated exposure control *Adjustment of mA and/or kV according to patient size (this includes techniques or standardized protocols for targeted exams where dose is matched to indication/reason for exam; i.e. extremities or head) *Use of iterative reconstruction technique DLP: 685 mGy-cm FINDINGS: No acute intracranial hemorrhage, mass effect, midline shift, hydrocephalus or herniation. Rubin-white matter differentiation is normal. Posterior cranial fossa contents demonstrated no acute intracranial hemorrhage or mass effect. Bony calvarium is intact. Skull base is intact. Tympanic cavities and mastoid cells are aerated. No air-fluid levels in the included paranasal sinuses. Sellar/suprasellar region demonstrated no gross masses. CT/CT head/brain wo IV con IMPRESSION: No acute intracranial hemorrhage or acute brain abnormality by CT. Electronically signed by: Evan Dhillon MD 12/28/2023 02:24 PM EDT
[2023-12-28 11:17] VITALS: BP 137/101; PULSE 84; RESP 18; TEMP 36.8; O2SAT 100; BMI 28.3
--- NOTE | 2023-12-28 11:22 | ECG_ITS ---
Test Reason : resolved chest pain, dizziness Blood Pressure : / mmHG Vent. Rate : 062 BPM Atrial Rate : 062 BPM P-R Int : 174 ms QRS Dur : 112 ms QT Int : 380 ms P-R-T Axes : 015 -69 015 degrees QTc Int : 385 ms Normal sinus rhythm Left axis deviation Abnormal ECG When compared with ECG of 06-OCT-2023 11:51, No significant change was found Referred By: Azam Quintana Electronically Signed By:DAY VIDALES
--- NOTE | 2023-12-28 11:25 | ED.GENADULT ---
HPI - General Adult General Chief complaint: Dizziness Stated complaint: high bp Time Seen by Provider: 12/28/23 12:12 Related Data Home Medications ?Medication ?Instructions ?Recorded ?Confirmed ursodiol 500 mg tablet 500 mg PO DAILY 03/03/22 08/18/23 Allergies Allergy/AdvReac Type Severity Reaction Status Date / Time No Known Allergies Allergy Verified 12/28/23 11:22 [No Known Allergies*] PMFSH Past Medical History Medical History Hyperlipidemia Asthma Dysuria Fatty liver Surgical History H/O esophagogastroduodenoscopy Hx of knee surgery Family History Family History Father HTN (hypertension) Mother HTN (hypertension) Social History Social History Patient Tobacco Use Status: Never used Tobacco Smoked in Last 30 Days: No Use of substances other than those prescribed or required for medical reasons: No Advance Directives: No Advance Directives Information Provided: Yes Do you have a plan to hurt others: No Plan Physical Exam ED Vital Signs: Vital Signs - 24 hr 12/28/23 11:17 12/28/23 13:49 12/28/23 14:20 Temperature 98.3 F 98.2 F 97.9 F Pulse Rate 84 76 79 Respiratory Rate 18 18 18 Blood Pressure 137/101 H 119/80 124/78 Pulse Oximetry 100 99 97 Oxygen Delivery Method Room Air Room Air Room Air BMI result Body Mass Index 28.3 Course Course Course Narrative: RME: 48-year-old male history of hypertension presents to ED for episode this morning of chest pressure and dizziness described as lightheadedness while at work. Patient has diastolic was 104. Patient states presently no chest pain or dizziness. Patient was sent by nurse from his job to be evaluated. NIH score is 0. Negative for any neuro deficits. Labs EKG ordered. Medical Decision Making Lab Data 12/28/23 11:31 12/28/23 11:31 Labs: Lab Results 12/28/23 12/28/23 Range/Units 11:31 13:17 WBC 8.9 (4.8-10.8) X10*3/uL RBC 4.96 (4.60-5.80) X10*6/uL Hgb 16.2 (14.0-18.0) g/dl Hct 46.0 (42.0-52.0) % MCV 92.7 (80.0-98.0) fL MCH 32.7 (27.0-33.0) pg MCHC 35.2 (31.0-36.0) g/dl RDW 12.0 (11.0-16.0) % Plt Count 297 (160-400) X10*3/uL MPV 9.1 L (9.4-12.4) fL Immature Gran % (Auto) 0.2 (0.0-0.4) % Neut % (Auto) 54.5 (45-73) % Lymph % (Auto) 34.7 (20-40) % Republic % (Auto) 7.9 (2-11) % Eos % (Auto) 1.9 (0-4) % Baso % (Auto) 0.8 (0-2) % Lymph # (Auto) 3.1 (1.2-4.9) X10*3/uL Republic # (Auto) 0.7 (0.1-1.2) X10*3/uL Eos # (Auto) 0.2 (0.0-0.4) X10*3/uL Baso # (Auto) 0.1 (0.0-0.2) X10*3/uL Abs Immat Gran (auto) 0.02 (0.00-0.03) X10*3/uL Absolute Neuts (auto) 4.8 (2.0-8.3) x10*3/uL Absolute Nucleated RBC 0.000 (0.0-0.012) X10*3/uL Nucleated RBC % (auto) 0.0 (0.0-0.2) /100WBC PT 11.9 (10.9-12.4) SEC INR 1.0 (0.9-1.1) APTT 38.4 H (26.0-36.8) SEC Sodium 140 (135-145) mmol/L Potassium 3.7 (3.3-5.1) mmol/L Chloride 106 (96-108) mmol/L Carbon Dioxide 25 (22-29) mmol/L Anion Gap 13 (12-20) BUN 10 (9-16) mg/dL Creatinine 0.84 (0.5-1.4) mg/dL Estim Creat Clear Calc 105.3 Estimated GFR > 60 Random Glucose 105 (60-115) mg/dL Calcium 9.6 D (8.4-10.2) mg/dL Total Bilirubin 0.5 (0.0-1.0) mg/dL AST 35 (5-37) U/L ALT 58 H (0-40) U/L Alkaline Phosphatase 57 (39-117) U/L Troponin I High Sens < 2.7 < 2.7 (<3.5-35.0) ng/L B-Natriuretic Peptide < 10 (<100) pg/mL Total Protein 8.2 H (6.5-8.0) g/dL Albumin 4.5 (3.5-5.0) g/dL Discharge Plan Discharge Clinical Impression: Hypertension Patient Disposition: Home, Self-Care Instructions: Hypertension (ED), Dizziness (ED) Prescriptions: No Action ursodiol 500 mg tablet 500 mg PO DAILY Referrals: Ingrid Robert MD [Primary Care Provider] - 12/30/23 Stand Alone Forms: Work/School Release Print Language: Polish
[2023-12-28 11:37] LABS: MANUAL DIFF FLAG NO
[2023-12-28 11:43] LABS: Basophils Absolute Auto 0.1 X10*3/uL (0.0-0.2); Basophils Percent Auto 0.8 % (0-2); Eosinophils Absolute Auto 0.2 X10*3/uL (0.0-0.4); Eosinophils Percent Auto 1.9 % (0-4); Hemoglobin 16.2 g/dl (14.0-18.0); Imm Gran Abs Auto 0.02 X10*3/uL (0.00-0.03); Imm Gran Pct Auto 0.2 % (0.0-0.4); Lymphocytes Absolute Auto 3.1 X10*3/uL (1.2-4.9); Lymphocytes Percent Auto 34.7 % (20-40); Mean Corpuscular HGB Conc 35.2 g/dl (31.0-36.0); Mean Corpuscular Hemoglobin 32.7 pg (27.0-33.0); Mean Corpuscular Volume 92.7 fL (80.0-98.0); Mean Platelet Volume 9.1 fL (9.4-12.4); Monocytes Absolute Auto 0.7 X10*3/uL (0.1-1.2); Monocytes Percent Auto 7.9 % (2-11); Neutrophils Absolute Auto 4.8 x10*3/uL (2.0-8.3); Neutrophils Percent Auto 54.5 % (45-73); Platelet Count 297 X10*3/uL (160-400); Prothrombin Time 11.9 SEC (10.9-12.4); Red Blood Count 4.96 X10*6/uL (4.60-5.80); White Blood Count 8.9 X10*3/uL (4.8-10.8)
[2023-12-28 11:46] LABS: Partial Thromboplastin Time 38.4 SEC (26.0-36.8)
[2023-12-28 11:59] LABS: Alanine Aminotransferase 58 U/L (0-40); Albumin Level 4.5 g/dL (3.5-5.0); Alkaline Phosphatase 57 U/L (39-117); Anion Gap 13 (12-20); Aspartate Amino Transferase 35 U/L (5-37); Bilirubin Total 0.5 mg/dL (0.0-1.0); Blood Urea Nitrogen 10 mg/dL (9-16); Calcium 9.6 mg/dL (8.4-10.2); Carbon Dioxide 25 mmol/L (22-29); Chloride 106 mmol/L (96-108); Creatinine Clr Calc Pharmacy 105.3; Estimated Glomerular Filt Rate > 60; Glucose Random 105 mg/dL (60-115); Potassium 3.7 mmol/L (3.3-5.1); Sodium 140 mmol/L (135-145); Total Protein 8.2 g/dL (6.5-8.0)
[2023-12-28 12:07] LABS: B Type Natriuretic Peptide < 10 pg/mL (<100); Troponin-I High Sensitivity < 2.7 ng/L (<3.5-35.0)
--- NOTE | 2023-12-28 12:51 | ED_ITS ---
HPI - Dizziness General Chief Complaint: Dizziness Stated Complaint: high bp Time Seen by Provider: 12/28/23 12:12 History of Present Illness HPI Narrative: Patient is a 48-year-old male with a history of hypertension. No history of diabetes, hypercholesterolemia, smoking, mi. patient noted himself to have some dizziness not quite feeling right is not described as any focal weakness. I just feel somewhat odd. Patient denies any changes with position. Also had some nonspecific pressure to his chest that seems to be constant. It has been ongoing for 3 months. Patient denies any shortness of breath or diaphoresis. Denies any chest pain. No coughing or congestion or upper respiratory symptoms. No history of blood clots no leg swelling no travel history. Patient is from home. No risk stratification done in the past. Related Data Home Medications ?Medication ?Instructions ?Recorded ?Confirmed ursodiol 500 mg tablet 500 mg PO DAILY 03/03/22 08/18/23 Allergies Allergy/AdvReac Type Severity Reaction Status Date / Time No Known Allergies Allergy Verified 12/28/23 11:22 [No Known Allergies*] Review of Systems 2 Review of Systems: Positive chest pain Yes all other systems are reviewed and are negative PMFSH Past Medical History Attestation statement: The following information was validated with the patient. Medical History Hyperlipidemia Asthma Dysuria Fatty liver Surgical History H/O esophagogastroduodenoscopy Hx of knee surgery Family History Family History Father HTN (hypertension) Mother HTN (hypertension) Social History Social History Patient Tobacco Use Status: Never used Tobacco Smoked in Last 30 Days: No Use of substances other than those prescribed or required for medical reasons: No Advance Directives: No Advance Directives Information Provided: Yes Do you have a plan to hurt others: No Plan Physical Exam 2 Vital Signs: Vital Signs: Last Vital Signs Temp 97.9 F 12/28/23 14:20 Pulse 79 12/28/23 14:20 Resp 18 12/28/23 14:20 BP 124/78 12/28/23 14:20 Pulse Ox 97 12/28/23 14:20 O2 Del Method Room Air 12/28/23 14:20 BMI result Body Mass Index 28.3 Appearance: Alert. Oriented X3. No acute distress. Eyes: Pupils equal, round and reactive to light. ENT: Pharynx normal. Neck: Normal inspection. Neck supple. No lymph nodes noted. No crepitus CVS: Normal heart rate and rhythm. Pulses normal. Normal S1 and S2 Respiratory: No respiratory distress. Breath sounds normal. No Wheezing. No rales Abdomen: Soft and nontender. No rigidity. No distention. good BS x4 Skin: Skin warm and dry. Normal skin color. Normal skin turgor. Extremities: No lower extremity edema. Neurovascular intact to all extremities. No Lacerations. No Rash Neuro: Oriented X 3. No motor deficit. No sensory deficit. Moving all extermities. No slurred speech NIH Stroke Scale Time: 12:54 Level of Consciousness: Alert Level of Consciousness Questions: Answers both questions correctly Level of Consciousness Commands: Performs both tasks correctly Best Gaze: Normal Visual: No visual loss Facial Palsy: Normal Motor Arm (Right): No drift Motor Arm (Left): No drift Motor Leg (Right): No drift Motor Leg (Left): No drift Limb Ataxia: Absent Sensory: Normal Best Language: No aphasia Dysarthia: Normal Extinction and Inattention: No abnormality Score: 0 Medical Decision Making Medical Decision Making MDM Narrative: Patient's blood pressure in the emergency department is 140/100. Be claims compliance with his medication including losartan 40 mg per day his initial labs showed a normal troponin. A normal BNP. There is no evidence for ACS. Only risk factor being patient has a history of hypertension. Patient no chest x-ray by my interpretation showed no acute evidence of pneumonia no pneumothorax. No rib fracture. My interpretation of patient's EKG showed a sinus rhythm heart rate is 75 NH QRS QTC normal no acute ST segment elevation noted. I reviewed patient's old record including previous cardiology note. There was a stress test that was done in 2020. At that time lesion stress test was negative. Also had a normal echocardiogram done at the same time. My interpretation patient's CT scan of the head was grossly negative for any acute evidence of bleeding. Patient neurologically intact. No distress. Two sets of cardiac enzymes are negative. Unlikely is ACS. Will discharge patient Differential Diagnosis Differential Diagnoses: The differential diagnosis associated with the presentation includes ACS, electrolyte disturbance, anxiety, CHF, hypoglycemia, Admission/Observation Consideration of admission/observation: Escalation of care including admission/observation considered Consult Healthcare Provider Management of the patient was discussed with: Hospitalist Lab Data MDM Lab Attestation statement: I reviewed the patient's lab results. 12/28/23 11:31 12/28/23 11:31 Labs: Lab Results 12/28/23 12/28/23 Range/Units 11:31 13:17 WBC 8.9 (4.8-10.8) X10*3/uL RBC 4.96 (4.60-5.80) X10*6/uL Hgb 16.2 (14.0-18.0) g/dl Hct 46.0 (42.0-52.0) % MCV 92.7 (80.0-98.0) fL MCH 32.7 (27.0-33.0) pg MCHC 35.2 (31.0-36.0) g/dl RDW 12.0 (11.0-16.0) % Plt Count 297 (160-400) X10*3/uL MPV 9.1 L (9.4-12.4) fL Immature Gran % (Auto) 0.2 (0.0-0.4) % Neut % (Auto) 54.5 (45-73) % Lymph % (Auto) 34.7 (20-40) % [place] % (Auto) 7.9 (2-11) % Eos % (Auto) 1.9 (0-4) % Baso % (Auto) 0.8 (0-2) % Lymph # (Auto) 3.1 (1.2-4.9) X10*3/uL [place] # (Auto) 0.7 (0.1-1.2) X10*3/uL Eos # (Auto) 0.2 (0.0-0.4) X10*3/uL Baso # (Auto) 0.1 (0.0-0.2) X10*3/uL Abs Immat Gran (auto) 0.02 (0.00-0.03) X10*3/uL Absolute Neuts (auto) 4.8 (2.0-8.3) x10*3/uL Absolute Nucleated RBC 0.000 (0.0-0.012) X10*3/uL Nucleated RBC % (auto) 0.0 (0.0-0.2) /100WBC PT 11.9 (10.9-12.4) SEC INR 1.0 (0.9-1.1) APTT 38.4 H (26.0-36.8) SEC Sodium 140 (135-145) mmol/L Potassium 3.7 (3.3-5.1) mmol/L Chloride 106 (96-108) mmol/L Carbon Dioxide 25 (22-29) mmol/L Anion Gap 13 (12-20) BUN 10 (9-16) mg/dL Creatinine 0.84 (0.5-1.4) mg/dL Estim Creat Clear Calc 105.3 Estimated GFR > 60 Random Glucose 105 (60-115) mg/dL Calcium 9.6 D (8.4-10.2) mg/dL Total Bilirubin 0.5 (0.0-1.0) mg/dL AST 35 (5-37) U/L ALT 58 H (0-40) U/L Alkaline Phosphatase 57 (39-117) U/L Troponin I High Sens < 2.7 < 2.7 (<3.5-35.0) ng/L B-Natriuretic Peptide < 10 (<100) pg/mL Total Protein 8.2 H (6.5-8.0) g/dL Albumin 4.5 (3.5-5.0) g/dL Independent Interpretation I performed an independent interpretation of an: EKG (Sinus heart rate is 75 NH QRS QTC normal no acute ST segment elevation) and Plain X-Ray (Chest x-ray was grossly negative for any acute evidence of infiltrate I reviewed radiology's reading) Radiology Impression Discussion of test interpretation with radiology: I have reviewed the radiologist's reading. External Record Review External record reviewed: Office record (Previous cardiology record reviewed) Chronic Conditions Patient?s care impacted by: Hypertension Discharge Plan Discharge Clinical Impression: Hypertension Patient Disposition: Home, Self-Care Instructions: Hypertension (ED) Prescriptions: No Action ursodiol 500 mg tablet 500 mg PO DAILY Referrals: Ingrid Robert MD [Primary Care Provider] - 12/30/23 Print Language: Maltese
[2023-12-28 13:41] LABS: Troponin-I High Sensitivity < 2.7 ng/L (<3.5-35.0)
[2023-12-28 13:49] VITALS: BP 119/80; PULSE 76; RESP 18; TEMP 36.8; O2SAT 99
[2023-12-28 14:20] VITALS: BP 124/78; PULSE 79; RESP 18; TEMP 36.6; O2SAT 97
[2023-12-28 14:43] VITALS: BP 124/78; PULSE 63; RESP 18; TEMP 36.8; O2SAT 98
== END 2023-12-28 14:45 | disposition home or self-care (01) ==
PROVIDERS: Physician Assistant; Emergency Provider Emergency Medicine Emergency Medical Services; PCP Internal Medicine
DX: I10 Essential (primary) hypertension (principal); R42 Dizziness and giddiness; E78.5 Hyperlipidemia, unspecified; J45.909 Unspecified asthma, uncomplicated; Z79.899 Other long term (current) drug therapy
CPT/HCPCS: 36415; 70450; 71045; 80053; 83880; 84484; 85025; 85610; 85730; 93005; 99284; 99285

== ENCOUNTER → 2023-12-28 11:22 | Outpatient (BNV) | payer OTHER, SELFPAY | PROVIDERS: Emergency Provider Emergency Medicine Emergency Medical Services; PCP Internal Medicine; Visit Provider Internal Medicine | DX: R94.31 Abnormal electrocardiogram [ECG] [EKG] (principal) | CPT/HCPCS: 93010 ==

== ENCOUNTER → 2023-12-28 12:51 | Outpatient (BNV) | payer OTHER, SELFPAY | PROVIDERS: Emergency Provider Emergency Medicine Emergency Medical Services; PCP Internal Medicine; Visit Provider Radiology Diagnostic Radiology | DX: I10 Essential (primary) hypertension (principal) | CPT/HCPCS: 70450 ==

== ENCOUNTER 2024-02-25 13:14 | Emergency (ER) | payer OTHER, SELFPAY ==
--- NOTE | ~2024-02-25 | XR_ITS ---
CLINICAL HISTORY: left chest pain 2 view chest x-ray Comparison: CR/CO/SR - XR CHEST 1V - 12/28/23 11:27 EDT Findings: No consolidation or effusion. Heart size is normal. No acute fracture. IMPRESSION: 1. No acute findings. This document has been electronically signed by: Lo Langston MD on 02/25/2024 14:29:07
--- NOTE | 2024-02-25 13:15 | ECG_ITS ---
Test Reason : palpitations Blood Pressure : / mmHG Vent. Rate : 097 BPM Atrial Rate : 097 BPM P-R Int : 160 ms QRS Dur : 106 ms QT Int : 348 ms P-R-T Axes : 036 247 028 degrees QTc Int : 441 ms Normal sinus rhythm Right superior axis deviation Abnormal ECG When compared with ECG of 28-DEC-2023 11:20, Vent. rate has increased BY 35 BPM QT has lengthened Referred By: Elaine Crowe Electronically Signed By:Beni Guajardo
[2024-02-25 13:34] VITALS: BP 155/107; PULSE 113; RESP 20; TEMP 36.6; O2SAT 100; BMI 27.5
--- NOTE | 2024-02-25 13:46 | ED_ITS ---
HPI - Chest Pain General Chief Complaint: Chest Pain Stated Complaint: heart palpitations Time Seen by Provider: 02/25/24 16:33 Source: patient Mode of arrival: ambulatory Limitations: no limitations History of Present Illness ED Provider: HPI narrative: Patient no significant cardiac history been here multiple times for the chest pain recently diagnose with hypertension and is on amlodipine comes here for 1 week of left-sided chest pain off and on lasting only for few seconds with multiple complaints had URI last week has not seen a [facility] yet been here multiple times for similar complaints with workup negative Related Data Home Medications ?Medication ?Instructions ?Recorded ?Confirmed ursodiol 500 mg tablet 500 mg PO DAILY 03/03/22 08/18/23 Allergies Allergy/AdvReac Type Severity Reaction Status Date / Time No Known Allergies Allergy Verified 02/25/24 13:37 [No Known Allergies*] Review of Systems 2 Review of Systems: Yes all other systems are reviewed and are negative PMFSH Past Medical History Medical History Hyperlipidemia Asthma Dysuria Fatty liver Surgical History H/O esophagogastroduodenoscopy Hx of knee surgery Family History Family History Father HTN (hypertension) Mother HTN (hypertension) Social History Social History Patient Tobacco Use Status: Never used Tobacco Advance Directives: No Advance Directives Information Provided: Yes Physical Exam 2 Vital Signs: Vital Signs: Last Vital Signs Temp 97.8 F 02/25/24 13:34 Pulse 102 H 02/25/24 16:39 Resp 14 02/25/24 16:39 BP 137/88 02/25/24 16:39 Pulse Ox 98 02/25/24 16:39 O2 Del Method Room Air 02/25/24 16:39 BMI result Body Mass Index 27.5 Appearance: Alert. Oriented X3. No acute distress. Anxious Eyes: PERRLA, No Nystagmus ENT: Pharynx normal. Oral Mucosa moist Neck: Normal inspection. Neck supple. CVS: Normal heart rate and rhythm. Pulses normal. Respiratory: No respiratory distress. Equal air entry bilateral, no wheezing/rales/rhonchi Abdomen: Soft and nontender. Bowel sounds are present, no mass palpable, no CVA tenderness Skin: Skin warm and dry. Normal skin color. Normal skin turgor. Extremities: No lower extremity edema. No calf tenderness Neuro: Oriented X 3. No motor deficit. No sensory deficit.No cerebellar signs , cranial nerves II-XII intact Course Course Course Narrative: This is a Rapid Medical Examination (RME) performed by Nathalia Crowe PA-C in triage. Full HPI, ROS, assessment and treatment plan per primary provider in the Main ED. 49 yo male here for eval of left sided chest pain w/ radiation to left arm x1 week. pain worse w/ deep breathing. admits to SOB on exertion. admits to hx of similar in the past. is trying to get into a [facility]. recent diagnosis of URI - completed steroids and antibiotic. denies recent travel or long car rides. patient's reports he appears more pale then usual. Plan: labs, ekg, cxr, viral swabs Medical Decision Making Medical Decision Making [facility] Narrative: Patient has atypical chest pain for 1 week lasting only for few seconds with similar pain in the past and ED visits. Cardiac workup is negative EKG without any ischemic changes patient advised to follow with [facility]/PCP Differential Diagnosis Differential Diagnoses: The differential diagnosis associated with the presentation includes ACS/atypical chest pain/anxiety Lab Data [facility] Lab Attestation statement: I reviewed the patient's lab results. 02/25/24 14:05 02/25/24 14:05 Labs: Lab Results 02/25/24 Range/Units 14:05 WBC 12.8 H (4.8-10.8) X10*3/uL RBC 5.13 (4.60-5.80) X10*6/uL Hgb 17.2 (14.0-18.0) g/dl Hct 47.2 (42.0-52.0) % MCV 92.0 (80.0-98.0) fL MCH 33.5 H (27.0-33.0) pg MCHC 36.4 H (31.0-36.0) g/dl RDW 12.4 (11.0-16.0) % Plt Count 291 (160-400) X10*3/uL MPV 9.0 L (9.4-12.4) fL Immature Gran % (Auto) 0.5 H (0.0-0.4) % Neut % (Auto) 62.9 (45-73) % Lymph % (Auto) 27.0 (20-40) % [place] % (Auto) 7.6 (2-11) % Eos % (Auto) 1.3 (0-4) % Baso % (Auto) 0.7 (0-2) % Lymph # (Auto) 3.4 (1.2-4.9) X10*3/uL [place] # (Auto) 1.0 (0.1-1.2) X10*3/uL Eos # (Auto) 0.2 (0.0-0.4) X10*3/uL Baso # (Auto) 0.1 (0.0-0.2) X10*3/uL Abs Immat Gran (auto) 0.06 H (0.00-0.03) X10*3/uL Absolute Neuts (auto) 8.0 (2.0-8.3) x10*3/uL Absolute Nucleated RBC 0.000 (0.0-0.012) X10*3/uL Nucleated RBC % (auto) 0.0 (0.0-0.2) /100WBC PT 11.8 (10.9-12.4) SEC INR 1.0 (0.9-1.1) Sodium 140 (135-145) mmol/L Potassium 3.8 (3.3-5.1) mmol/L Chloride 106 (96-108) mmol/L Carbon Dioxide 24 (22-29) mmol/L Anion Gap 14 (12-20) BUN 11 (9-16) mg/dL Creatinine 0.87 (0.5-1.4) mg/dL Estim Creat Clear Calc 99.2 Estimated GFR > 60 Random Glucose 109 (60-115) mg/dL Calcium 9.7 (8.4-10.2) mg/dL Magnesium 2.1 (1.6-2.6) mg/dL Total Bilirubin 0.5 (0.0-1.0) mg/dL AST 31 (5-37) U/L ALT 52 H (0-40) U/L Alkaline Phosphatase 63 (39-117) U/L Troponin I High Sens < 2.7 (<3.5-35.0) ng/L Total Protein 8.2 H (6.5-8.0) g/dL Albumin 4.4 (3.5-5.0) g/dL Lipase 155 H (8-78) U/L Influenza Type A (PCR) NEGATIVE (Negative) Influenza Type B (PCR) NEGATIVE (Negative) RSV RNA Qual (PCR) NEGATIVE (Negative) SARS-CoV-2 RNA (RT-PCR) NEGATIVE (Negative) Independent Interpretation I performed an independent interpretation of an: EKG Interpretation: Normal sinus rhythm heart rate 97 beats per minute normal intervals right-sided axis no acute ST-T changes no acute ischemia Discharge Plan Discharge Clinical Impression: Atypical chest pain Patient Disposition: Home, Self-Care Instructions: Noncardiac Chest Pain (ED) Additional Instructions: Follow with your PCP Your chest pain is unlikely from the heart, likely musculoskeletal Decreased caffeine intake Prescriptions: No Action ursodiol 500 mg tablet 500 mg PO DAILY Print Language: Sinhala
[2024-02-25 14:11] LABS: Basophils Absolute Auto 0.1 X10*3/uL (0.0-0.2); Basophils Percent Auto 0.7 % (0-2); Eosinophils Absolute Auto 0.2 X10*3/uL (0.0-0.4); Eosinophils Percent Auto 1.3 % (0-4); Hematocrit 47.2 % (42.0-52.0); Hemoglobin 17.2 g/dl (14.0-18.0); Imm Gran Abs Auto 0.06 X10*3/uL (0.00-0.03); Imm Gran Pct Auto 0.5 % (0.0-0.4); Lymphocytes Absolute Auto 3.4 X10*3/uL (1.2-4.9); MANUAL DIFF FLAG NO; Mean Corpuscular HGB Conc 36.4 g/dl (31.0-36.0); Mean Corpuscular Hemoglobin 33.5 pg (27.0-33.0); Monocytes Percent Auto 7.6 % (2-11); Neutrophils Percent Auto 62.9 % (45-73); Platelet Count 291 X10*3/uL (160-400); Red Blood Count 5.13 X10*6/uL (4.60-5.80); Red Cell Distribution Width 12.4 % (11.0-16.0); White Blood Count 12.8 X10*3/uL (4.8-10.8)
[2024-02-25 14:17] LABS: Prothrombin Time 11.8 SEC (10.9-12.4)
[2024-02-25 14:36] LABS: Alanine Aminotransferase 52 U/L (0-40); Albumin Level 4.4 g/dL (3.5-5.0); Alkaline Phosphatase 63 U/L (39-117); Anion Gap 14 (12-20); Aspartate Amino Transferase 31 U/L (5-37); Bilirubin Total 0.5 mg/dL (0.0-1.0); Blood Urea Nitrogen 11 mg/dL (9-16); Calcium 9.7 mg/dL (8.4-10.2); Carbon Dioxide 24 mmol/L (22-29); Chloride 106 mmol/L (96-108); Creatinine Clr Calc Pharmacy 99.2; Estimated Glomerular Filt Rate > 60; Glucose Random 109 mg/dL (60-115); Lipase 155 U/L (8-78); Magnesium 2.1 mg/dL (1.6-2.6); Potassium 3.8 mmol/L (3.3-5.1); Sodium 140 mmol/L (135-145); Total Protein 8.2 g/dL (6.5-8.0)
[2024-02-25 14:43] LABS: Troponin-I High Sensitivity < 2.7 ng/L (<3.5-35.0)
[2024-02-25 15:11] LABS: Influenza A PCR NEGATIVE (Negative); Influenza B PCR NEGATIVE (Negative); Resp Syncy Virus RNA Qual PCR NEGATIVE (Negative); SARS COV2 PCR INHOUSE NEGATIVE (Negative)
--- OUTSIDE RECORDS SUMMARY | 2024-02-25 16:36 | XMS_ITS ---
Author Organization [facility] Address [address] [place] [id number] Care Team Providers Care Stove Installer Name Role Phone Patrick Moody MD Primary Care Provider Jourdan Kelly [phone] ALLERGIES No Known Allergies REASON FOR VISIT [...] 11/05/2022 Encounters Encounter Location Date Provider Diagnosis [facility] [address] [place] [address] 11/05/2022 Jourdan Sotelo Fatty liver K76.0 ; [...] 1 Year, Reason: Provider Name:Jourdan Sotelo , 11/02/2024 01:00:00 PM, [address], [address], [place], [address], Progress Notes * Examination Category Sub-Category Detail [...]
--- OUTSIDE RECORDS SUMMARY | 2024-02-25 16:36 | XMS_ITS | Patient Health Record ---
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 Name Role Phone Patrick Moody MD Primary Care Provider Jourdan Kelly [phone] ALLERGIES No Known Allergies RESULTS Component Value Reference Range Notes Liver Fibrosis Pnl Reviewed date:11/17/2023 07:12:22 AM Interpretation: Performing Lab:[facility], [address] [place] [id number] Notes/Report: Liver Fibrosis Score 0.41 Liver Fibrosis Stage F1-F2 Liver Fibrosis Interpretation [...] F4 (severe fibrosis) Nec Inflam Act Score 0.16 Nec Inflam Act Grade A0 Nec Inflam Act Interpretation SEE NOTE no activity ActiTest Score (a) Metavir Score a>=0 and a<=0.17 : A0 (no activity) a>0.17 and a<=0.29 : A0-A1 (no activity) a>0.29 and a<=0.36 : A1 (minimal activity) a>0.36 and a<=0.52 : A1-A2 (minimal activity) a>0.52 and a<=0.60 : A2 (significant activity) a>0.60 and a<=0.62 : A2-A3 (significant activity) a>0.62 and a<=1.00 : A3 (severe activity) NSO-Yybro-4-Macroglobulin 328 106-279 mg/dL FIB-Haptoglobin 175 43-212 mg/dL FIB-Apolipoprotein A1 151 94-176 mg/dL FIB-Total Bilirubin 0.7 0.2-1.2 mg/dL FIB-GGT 31 3-95 U/L FIB-ALT 29 9-46 U/L Reference ID [id number] Footnote SEE NOTE The reliability of results is dependent on compliance with the preanalytical and analytical conditions recommended by [employer]. The tests have to be deferred for: [...] The performance characteristics have been [facility] by [facility]. It has not been cleared or approved by the U.S. Food and Drug Administration. Performance characteristics refer to the analytical performance of the test. [employer], the associated logo, [employer] and all associated [employer] are the registered trademarks of [employer]. All third republican kim - (R) and (TM) - are the property of their respective owners. (C) [id number] [employer]. All rights reserved. THIS TEST WAS PERFORMED AT: [facility] [place] [address] [place] [address] BENITO GARCIA MD,PHD,MIRNA US abdomen comp w elastograp hy (Not yet reviewed by provider) Interpretation: Performing Lab: Notes/Report: [address] [address] Ultrasound Report Signed Patient: Leonel Nix MR#: [id number] 04 : 1975 Acct:[id number] Age/Sex: 48 / M ADM Date: 11/09/23 Loc: HO.US Attending Dr: Jourdan Sotelo MD Ordering Physician: Jourdan Sotelo MD Date of Service: 11/09/23 Procedure(s): US abdomen comp w elastography Accession Number(s): [id number] cc: Ingrid Robert MD; Jourdan Sotelo MD EXAMINATION: US COMPLETE ABDOMEN WITH LIVER ELASTOGRAPHY CLINICAL INFORMATION: Fatty liver. COMPARISON: Liver ultrasound with Elastoplasty 12/03/2022 TECHNIQUE: Real-time imaging of the abdominal viscera. Noninvasive ultrasound liver fibrosis assessment is performed using Marina ElastPQ point quantification shear wave elastography (pSWE) with a C5-2 MHz transducer. Multiple elastography samples are obtained. FINDINGS: PANCREAS: The visualized pancreatic head and body are normal in appearance. The remainder of the pancreas is obscured from visualization by the overlying bowel gas. ABDOMINAL AORTA: The proximal, middle, and distal aortic segments are normal in caliber. INFERIOR VENA CAVA: Visualized portions are normal. LIVER: Liver is echogenic consistent with hepatic steatosis. There is focal fatty sparing seen adjacent to the gallbladder. No focal lesion or intrahepatic biliary duct dilatation. The right lobe measures 17.0 cm in length. The left lobe measures 9.3 cm in length. Portal flow is towards the liver (hepatopetal). Shear wave liver elastography median stiffness is 1.52 m/s (reference: normal median stiffness is 1.3 m/s or less). Previously this value was 1.05. IQR/median stiffness to assess sampling precision is 0.34 (reference: good quality data set is IQR/median stiffness of 0.15 or less). Previously this value was 0.22. GALLBLADDER: Normal. The gallbladder is physiologically distended without evidence of stones, sludge, polyps, wall thickening or pericholecystic fluid. COMMON BILE DUCT: Normal in caliber measuring 0.4 cm in diameter. RIGHT KIDNEY: Normal. No hydronephrosis. No renal calculi or focal parenchymal lesions. The kidney measures 12.2 cm in maximum dimension. LEFT KIDNEY: Two 8 mm echogenic foci seen in the left kidney with twinkle artifact consistent with nonobstructing calculi. No hydronephrosis. No focal parenchymal lesions. The kidney measures 11.0 cm in maximum dimension. SPLEEN: Normal. The spleen measures 9.4 cm in maximum dimension. FREE FLUID: None. US/US abdomen comp w elastography IMPRESSION: 1. Hepatic steatosis with incidentally noted nonobstructing left renal calculi. 2. Liver elastography: Although measurements appear to rule out compensated advanced chronic liver disease, there is statistical variability of the sampling which decreases accuracy. When compared with prior exam, there is a statistically significant increase in liver stiffness (increase at least 10%), although diagnostic sampling quality is now suboptimal. REFERENCE: Society of Radiologists in Ultrasound Liver [...] liver stiffness thresholds are not well established. Electronically signed by: Cale Rich MD 11/12/2023 12:35 PM EDT RP Dictated By: Cale Rich MD Signed By: <Electronically signed by Cale Rich MD in OV> 11/12/23 1235 DD/ 8 TD/TT: 11/09/23 1000 Motel Maid: GERALD Liver Panel Reviewed date:11/13/2023 05:16:41 PM Interpretation: Performing Lab:[facility], [address] [place] [id number] Notes/Report: Bilirubin Total 0.7 0.0-1.0 mg/dL Bilirubin Direct 0.2 0.0-0.5 mg/dL Aspartate Amino Transferase 31 5-37 U/L Alanine Aminotransferase 59 0-40 U/L Total Protein 8.0 6.5-8.0 g/dL Albumin Level 4.4 3.5-5.0 g/dL Alkaline Phosphatase 65 39-117 U/L Alpha Fetoprotein Reviewed date:11/17/2023 07:12:13 AM Interpretation: Performing Lab:[facility], [address] [place] [id number] Notes/Report: Alpha Fetoprotein 3.0 <6.1 ng/mL This test was performed using the Rachel Keri chemiluminescent method. Values obtained from different assay methods cannot be used interchangeably. AFP levels, regardless of value, should not be interpreted as absolute evidence of the presence or absence of disease. THIS TEST WAS PERFORMED AT: [facility] [address] [address] LUCILA CARROLL MD REASON FOR REFERRAL No Information MEDICATIONS Medication SIG (Take, Route, Frequency, Duration) Notes Start Date End Date Status Ursodiol 500mg 3 Orally Every day Active Ursodiol 500 MG 2 in AM and 1 in PM Orally Twice a day Active Losartan Potassium 25 MG Oral for 90 Active Motrin IB 200 MG 1 tablet with food o r milk as needed Orally prn Not-Taking IMMUNIZATIONS Vaccine Route Administration Date Status Comme [...] Problem Colon cancer screening (Z12.11) Active confirmed 884509702 Problem Elevated liver function tests (R79.89) Active confirmed [id number] Problem Elevated liver enzymes (R74.8) Active confirmed [id number] Problem Fatty liver (K76.0) Active confirmed [id number] Problem Elevated liver function tests (R94.5) Active confirmed 552673929 Problem Liver fibrosis (K74.00) Active confirmed Hepatic fibrosis (11585880) Problem Fibrosis of liver (K74.00) Active confirmed 35250685 VITAL SIGNS Blood pressure diastolic 00 mm Hg 11/04/2023 Height 65 in 11/04/2023 Blood pressure systolic 00 mm Hg 11/04/2023 Weight 169 lbs 11/04/2023 BMI 28.12 kg/m2 11/04/2023 Encounters Encounter Location Date Provider Diagnosis [facility] [address] [place] [address] 11/04/2023 Jourdan Sotelo Fatty liver K76.0 ; Elevated liver function tests R94.5 and Liver fibrosis K74.00 ASSESSMENTS Encounter Date Diagnosis Assessment Notes Treatment Notes Treatment Clinical Notes 11/04/2023 Fatty liver (ICD-10 - K76.0) Continue to keep the weight down, eat healthy, avoid alcohol, exercise, and continue the Ursodiol for the liver 11/04/2023 Elevated liver function tests (ICD-10 - R94.5) 11/04/2023 Liver fibrosis (ICD-10 - K74.00) PLAN OF TREATMENT Pending Test Test Name Order Date LIVER PROFILE 02/04/2015 LIVER PROFILE 09/29/2021 LIVER PROFILE 02/22/2015 LIVER PROFILE 03/04/2022 LIVER PROFILE 05/04/2019 LIVER PROFILE 06/04/2021 LIVER PROFILE 04/11/2020 LIVER PROFILE 07/27/2021 LIVER PROFILE 05/15/2019 LIVER PROFILE 03/14/2022 LIVER PROFILE 04/22/2021 LIVER PROFILE 12/07/2019 LIVER PROFILE 11/04/2023 LIVER PROFILE 11/05/2022 CBC w DIFF 12/07/2019 CBC w DIFF 11/05/2022 CBC w DIFF 06/04/2021 CBC w DIFF 07/27/2021 CBC w DIFF 04/22/2021 PROTHROMBIN TIME (PT, INR) 12/07/2019 PROTHROMBIN TIME (PT, INR) 06/04/2021 PARTIAL THROMBOPLASTIN TIME (PTT) 2021 ALPHA-FETOPROTEIN,TUMOR MARKER 4 ALPHA-FETOPROTEIN,TUMOR MARKER 3 US LIVER BIOPSY CORE GUIDE 06/04/2021 HCV LIVER FIBROSIS, FIBRO TEST 2 HCV LIVER FIBROSIS, FIBRO TEST 0 US ABDOMEN COMP WITH ELASTOGRAPHY 2021 Prothrombin Time INR 07/27/2021 Prothrombin Time INR 04/22/2021 Liver Fibrosis Pnl 11/05/2022 US abdomen comp w elastography 4 US abdomen comp w elastography 3 Future Test Test Name Order Date COLONOSCOPY 03/04/2022 Next Appt Details Provider Name:Jourdan Sotelo , 11/02/2024 01:00:00 PM, [address] [place] [address], [address], [place], [address], Insurance Providers Payer Name Payer Address Payer Phone Subscriber Number Group Number Insured Name Patient Relationship to Insured Coverage Start Date Coverage End Date [facility] [address] [place] [phone] [id number] LEONEL NIX Self - patient is the insured MEDICAL (GENERAL) HISTORY Medical History History ICD Code EGD [id number] HH--no esophagitis, n o [facility]'s Fatty liver--biopsy in 1999- fatty liver and mild inflammation-no fibrosis--neg.abdominal U/S in 2010---stopped Jose before 2013, but resumed in early 2019 Asthma Denies AR,DM,CVA,renal disease UTI's Liver biopsy in May revealed evidence of the fatty liver, inflammation, and some fibrosis with early bridging. There was no cirrhosis. Hyperlipidemia Kidney stones Negative screening colonoscopy in 03/2022 hypertension Surgical History Surgery Date(Month/Year) Left knee arthroscopy 08/2018
[2024-02-25 16:39] VITALS: BP 137/88; PULSE 102; RESP 14; O2SAT 98
[2024-02-25 17:04] VITALS: BP 137/88; PULSE 102; RESP 14; TEMP 36.9; O2SAT 98
== END 2024-02-25 17:04 | disposition home or self-care (01) ==
PROVIDERS: Physician Assistant Medical; Emergency Provider Internal Medicine; PCP Internal Medicine
DX: R07.89 Other chest pain (principal); I10 Essential (primary) hypertension; E78.5 Hyperlipidemia, unspecified; J45.909 Unspecified asthma, uncomplicated; Z03.818 Encounter for observation for suspected exposure to other biological agents ruled out; R06.02 Shortness of breath
CPT/HCPCS: 0241U; 36415; 71046; 80053; 83690; 83735; 84484; 85025; 85610; 93005; 99283; 99284

== ENCOUNTER → 2024-02-25 13:15 | Outpatient (BNV) | payer OTHER, SELFPAY | PROVIDERS: Emergency Provider Internal Medicine; PCP Internal Medicine; Visit Provider Internal Medicine Cardiovascular Disease | DX: R94.31 Abnormal electrocardiogram [ECG] [EKG] (principal) | CPT/HCPCS: 93010 ==

== ENCOUNTER → 2024-02-25 13:37 | Outpatient (BNV) | payer OTHER, SELFPAY | PROVIDERS: Visit Provider Radiology Diagnostic Radiology | DX: R07.2 Precordial pain (principal) | CPT/HCPCS: 71046 ==

== ENCOUNTER 2024-08-03 12:48 | Outpatient (REF) | payer OTHER, SELFPAY ==
--- NOTE | ~2024-08-03 | US_ITS ---
EXAMINATION: US KIDNEY BILATERAL HISTORY: N20.0 - Calculus of kidney TECHNIQUE: Real-time grayscale ultrasound imaging of the kidneys was performed and images were reviewed. COMPARISON: Comparison is made with the prior examination dated 11/09/2023. FINDINGS: Right kidney: The right kidney measures 12.4 x 6.0 x 4.5 cm. Renal parenchymal echotexture and thickness are normal. There are no masses. Tiny echogenic focus is noted in the interpolar region which could represent a tiny calculus. There is no hydronephrosis. Left Kidney: The left kidney measures 11.5 x 4.8 x 4.4 cm. Renal parenchymal echotexture and thickness are normal. There are no masses. Multiple nonobstructing calculi are noted including a 6 x 6 x 8 mm calculus at the upper pole, a 4 x 2 x 3 mm calculus in the interpolar region, and 3 x 2 x 3 mm and 3 x 3 x 2 mm calculi at the lower pole. There is no hydronephrosis. US/US renal BI IMPRESSION: Left nephrolithiasis as described. No hydronephrosis. Electronically signed by: Jourdan Baptiste MD 08/03/2024 01:49 PM EDT
--- OUTSIDE RECORDS SUMMARY | 2024-08-03 12:50 | XMS_ITS ---
Author Organization [facility] Address [address] [place] [address] Care Team Providers Care Medical Malpractice Paralegal Name Role Phone Patrick Moody MD Primary Care Provider Jourdan Kelly [phone] Allergies No Known Allergies Results Component Value Reference Range Notes Liver Fibrosis Pnl Reviewed date:11/17/2023 07:12:22 AM Interpretation: Performing Lab:[facility], [address] [place] [phone] Notes/Report: Liver Fibrosis Score 0.41 Liver Fibrosis [...] a>0.62 and a<=1.00 : A3 (severe activity) ROE-Taqpg-6-Macroglobul in 328 106-279 mg/dL FIB-Haptoglobin 175 43-212 mg/dL FIB-Apolipoprotein A1 151 94-176 mg/dL FIB-Total Bilirubin 0.7 0.2-1.2 mg/dL FIB-GGT 31 3-95 U/L FIB-ALT 29 9-46 U/L Reference ID [id number] Footnote SEE NOTE The reliability of results is dependent on compliance with the preanalytical and analytical conditions recommended by [employer]. The tests have to be deferred for: [...] The performance characteristics have been determined by [facility], [place]. It has not been cleared or approved by the U.S. Food and Drug Administration. Performance characteristics refer to the analytical performance of the test. [employer], the associated logo, [employer] and all associated [employer] kim are the registered trademarks of [employer]. All third republican kim - (R) and (TM) - are the property of their respective owners. (C) 2326-7039 [employer]. All rights reserved. THIS TEST WAS PERFORMED AT: [facility] [place] [address] [address] BENITO GARCIA MD,PHD,MIRNA US abdomen comp w elastograp hy (Not yet reviewed by provider) Interpretation: Performing Lab: Notes/Report: [place] [place] [address] Ultrasound Report Signed Patient: Leonel Nix MR#: [id number] 04 : 1975 Acct:[id number] Age/Sex: 48 / M ADM Date: 11/09/23 Loc: HO.US Attending Dr: Jourdan Sotelo MD Ordering Physician: Jourdan Sotelo MD Date of Service: 11/09/23 Procedure(s): US abdomen comp w elastography Accession Number(s): [id number] cc: Ingrid Robert MD; Jourdan Sotelo MD [...] Cale Rich MD 11/12/2023 12:35 PM EDT Dictated By: Cale Rich MD Signed By: <Electronically signed by Cale Rich MD in OV> 11/12/23 1235 DD/ 0929 TD/TT: 11/09/23 1000 Senior Director Of Strategy: [place] [address] Ultrasound Report Signed Patient: Chelly Nix MR#: [id number] 04 : 1975 Acct:[id number] Age/Sex: 48 / M ADM Date: 11/09/23 Loc: HO.US Attending Dr: Jourdan Sotelo MD Ordering Physician: Jourdan Sotelo MD Date of Service: 11/09/23 Procedure(s): US abdomen comp w elastography Accession Number(s): [id number] cc: Ingrid Robert MD; Jourdan Sotelo MD EXAMINATION: US COMPLETE ABDOMEN WITH LIVER ELASTOGRAPHY CLINICAL INFORMATION: Fatty liver. COMPARISON: Liver ultrasound wit h Elastoplasty 12/03/2022 TECHNIQUE: Real-time imaging of the [...] the gallbladder. No focal lesion or intrahepatic bili raul duct dilatation. The right lobe measu res 17.0 cm in length. The left lobe measures 9.3 cm in length. Portal flow is towar ds the liver (hepatopetal). Shear wave liver elastography median stiffness is 1.52 m/s (reference: normal median stiffn ess is 1.3 m/s or less). Previously this value was 1.05. IQR/median stiffness to assess sampling precision is 0.34 (reference: good quality data se t is IQR/median stiffness of 0.15 or less). Previously this valu e was 0.22. GALLBLADDER: Normal. The gallbladder is physiologically distended without evidence of stones, sludge, polyps, wall thickening or pericholecystic fluid. COMMON BILE DUCT: Normal in caliber measuring 0.4 cm in diameter. RIGHT KIDNEY: Normal . No hydronephrosis. No renal calculi or focal parenchymal lesions. The kidney measures 12.2 cm in maximum dimension. LEFT KIDNEY: Two 8 m m echogenic foci seen in the left kidney with twinkle artifact consistent with nonobstructing calculi. No hydronephrosis. No focal parenchymal lesions. The kidney measures 11.0 cm in maximum dimension. SPLEEN: Normal. The spleen measures 9.4 cm in maximum dimension. FREE FLUID: None. US/US abdomen comp w elastography IMPRESSION: 1. Hepatic steatosis with incidentally noted nonobstructing left renal calculi. 2. Liver elastograph y: Although measurements appear to rule out compensated advanced chronic liver disease, there is statistical variability of the sampling which decreases accuracy. When compared with prior exam, the re is a statistically significant increase in liver stiffness (increase at least 10%), although diagnostic sampling quality is now suboptimal. REFERENCE: Society of Radiologi sts in Ultrasound Liver Stiffness Thresholds (2020): LIVER STIFFNESS THRESHOLDS: *Liver Stiffness equ al or less than 1.3 m/s: High probability of being normal. *Liver Stiffness les s than 1.7 m/s: In the absence of other known clinical signs, rule s out compensated advanced chronic liver disease. *Liver Stiffness 1.7-2.1 m/s: Suggestive of compensated advanced chronic liver diseas e but need further test for confirmation. *Liver Stiffness ove r 2.1 m/s: Rules in compensated advanced chronic liver disease. *Liver Stiffness ove r 2.4 m/s: Suggestive of clinically significant portal hypertension. QUALITY OF DATA SET: *IQR/Median value eq ual or less than 0.15 implies a quality data set. *IQR/Median value ov er 0.15 implies a poor quality data set. SIGNIFICANT CHANGE F ROM PRIOR EXAM: Significant change i f liver stiffness measurement is 10% or greater from prior exam. OTHER CONSIDERATIONS: The stage of liver fibrosis may be overestimated in the setting of acute hepatitis, eliu er inflammation, elevated liver function tests, hepatic vascular congestion, obstructive cholestasis, non-fasting state, and infiltrat bettie diseases such as amyloidosis and lymphoma. In some patients with NAFLD, the liver stiffness thresholds for compensated advanced chronic liver disease may be lower. In causes other than viral hepatitis and NAFLD, liver stiffness thresholds are not well established. Electronically yanelis d by: Cale Rich MD 11/12/2023 12:35 PM EDT Dictated By: Cale Rich MD Signed By: <Electronically signed by Cale Rich MD in OV> 11/12/23 1235 DD/ 0929 TD/TT: 11/09/23 1000 Senior Director Of Strategy: GERALD REASON FOR VISIT Patient presents today for a liver fibrosis Medications Medication SIG (Take, Route, Frequency, Duration) Notes Start Date End Date Status Ursodiol 500mg 3 Orally Every day Active Motrin IB 200 MG 1 tablet with food o r milk as needed Orally prn Not-Taking Ursodiol 500 MG 2 in AM and 1 in PM Orally Twice a day Active Losartan Potassium 25 MG Oral for 90 Active Social History Tobacco Use: Social History Observation Description Date Details (start date - stop date) Never Smoker NA - NA Tobacco Use/Smoking Question Answer Notes Patient is [...] Never (0 point) Points 1 Interpretation Negative Section Notes: He does not smoke nor use an y sig. amounts of alcohol Vital Signs Blood pressure systolic 00 mm Hg 11/04/19 24 Blood pressure diastolic 00 mm Hg 024 Height 65 in 11/04/2023 Weight 169 lbs 11/04/2023 BMI 28.12 kg/m2 11/04/2023 Encounters Encounter Location Date Provider Diagnosis [facility] [address] [place] [address] 11/04/2023 Jourdan Sotelo Fatty liver K76.0 ; Elevated liver function tests R94.5 and Liver fibrosis K74.00 Assessments Encounter Date Diagnosis (ICD Code) Assessment Notes Treatment Notes Treatment Clinical Notes Section Notes 11/04/2023 Fatty liver (ICD-10 - K76.0) Continue to keep the weight down, eat healthy, avoid alcohol, exercise, and continue the Ursodiol for the liver Overall, Leonel appears well. His LFTs are significantly improved and just about normal on his current medical regimen along with his better diet and with weight loss. I did advise him to certainly continue all of this. He does not show any signs nor have any symptoms of progressive liver disease at this time. We did review the importance of remaining compliant with his medication, healthy diet, and exercise for his overall health, as well as specifically for his fatty liver and to hopefully prevent any progressive liver disease. I shall check a followup abdominal ultrasound, along with an alpha-fetoprotein level and liver fibrosis score. I did review with him that we should do these studies yearly. If things remains stable I will plan to seem in one year for a followup office visit. I did advise him to certainly call if he has any problems or questions I can be of assistance with. Leonel was comfortable with this plan. Thank you again for allowing me to participate in Leonel's care. I shall continue to keep you advised of his progress. 11/04/2023 Elevated liver function tests (ICD-10 - R94.5) Overall, Leonel appears well. His LFTs are significantly improved and just about normal on his current medical regimen along with his better diet and with weight loss. I did advise him to certainly continue all of this. He does not show any signs nor have any symptoms of progressive liver disease at this time. We did review the importance of remaining compliant with his medication, healthy diet, and exercise for his overall health, as well as specifically for his fatty liver and to hopefully prevent any progressive liver disease. I shall check a followup abdominal ultrasound, along with an alpha-fetoprotein level and liver fibrosis score. I did review with him that we should do these studies yearly. If things remains stable I will plan to seem in one year for a followup office visit. I did advise him to certainly call if he has any problems or questions I can be of assistance with. Leonel was comfortable with this plan. Thank you again for allowing me to participate in Leonel's care. I shall continue to keep you advised of his progress. 11/04/2023 Liver fibrosis (ICD-10 - K74.00) Overall, Leonel appears well. His LFTs are significantly improved and just about normal on his current medical regimen along with his better diet and with weight loss. I did advise him to certainly continue all of this. He does not show any signs nor have any symptoms of progressive liver disease at this time. We did review the importance of remaining compliant with his medication, healthy diet, and exercise for his overall health, as well as specifically for his fatty liver and to hopefully prevent any progressive liver disease. I shall check a followup abdominal ultrasound, along with an alpha-fetoprotein level and liver fibrosis score. I did review with him that we should do these studies yearly. If things remains stable I will plan to seem in one year for a followup office visit. I did advise him to certainly call if he has any problems or questions I can be of assistance with. Leonel was comfortable with this plan. Thank you again for allowing me to participate in Leonel's care. I shall continue to keep you advised of his progress. Plan Of Treatment Medication Medication Name Sig Start Date Stop Date Notes Ursodiol 500mg 3 Orally Every day Treatment Notes Assessment Notes Fatty liver Continue to keep the weight down, eat healthy, avoid alcohol, exercise, and continue the Ursodiol for the liver Pending Test Test Name Order Date LIVER PROFILE 11/04/2023 ALPHA-FETOPROTEIN,TUMOR MARKER 4 US abdomen comp w elastography 4 Next Appt Details Follow Up: 1 Year, Claus adamson on: Provider Name:Jourdan Sotelo , 11/02/2024 01:00:00 PM, [address] [place] [address], Suite [facility], [place], [address], Progress Notes * LEONEL NIX MDOB: [birth year] (48 yo M)Acc No.[id number]:11/04/2023 Progress Notes Patient:?LEONEL NIX Provider:?Jourdan Sotelo MD :1975???Age:48 Y???Sex:Male Obi e:11/04/2023 Address:[address] [place], [place] [id number] Pcp:Patrick Moody MD Subjective: * Chief Complaints: * ???Patient presents today fo r a liver fibrosis * HPI: ???incontinence:? I saw Leonel in followup today in regard to his underlying history of fatty liver, elevated LFTs, and some liver fibrosis. ?I last saw Leonel one year ago in October of 2022. He presently feels well and denies any issues with fatigue, pruritus, signs of jaundice, increasing abdominal girth, edema, or abdominal pain. Since that time he reports that he has remained compliant with his ursodiol at 1500 mg daily. He has been watching his diet as best as possible, is exercising, and has lost approximately 5-10 pounds since he was here last. He enjoys a good appetite, without any significant heartburn or dysphagia. He avoids alcohol. His bowel movements have been regular and without any signs of bleeding. ?His ultrasound from November 2022 did not reveal any sign of liver mass, splenomegaly, ascites, nor significant liver fibrosis on the elastography portion of the ultrasound. He had a normal alpha-fetoprotein level at that time had a liver fibrosis score of F1-F2. His most recent labs from just last month revealed a normal liver profile except for an ALT of 68, a normal CBC with platelet count, normal chemistries and renal function, and a random glucose of 97. * ROS:?General/Constitutional:?Change in appetite?denies.?Chills?denies.?Fatigue?denies.?Ophthalmologic:?Comments?all negative.?ENT:?Comments?all negative.?Respiratory:?hemoptysis?denies.?Cough?denies.?Cardiovascular:?Chest pain?denies.?Orthopnea?denies.?Gastrointestinal:?Comments?See HPI for details.?Genitourinary:?Hematuria?denies.?Musculoskeletal:?Painful joints?denies.?Weakness?denies.?Skin:?Itching?denies.?Rash?denies.?Neurologic:?Headache?denies.?Seizures?denies.?Psychiatric:?Comments?all negative.? * Medical History:? * Surgical History:?Left knee arthroscopy 08/2018 * Hospitalization/Major Diagno stic Procedure:?No Hospitalization History. * Family History:?Father: jim leyva, diagnosed with HTN (hypertension).?Mother: alive, fatty liver, diagnosed with HTN (hypertension).? No colon cancer nor liver disease. * Social History:?Tobacco Use:?Tobacco Use/Smoking?Patient is a?nonsmoker.?Drugs/Alcohol:?Alcohol Screen?Did you have a drink containing alcohol in the past year??Yes,?How often did you have a drink containing alcohol in the past year??Monthly or less (1 point), How many drinks did you have on a typical day when you were drinking in the past year??1 or 2 drinks (0 point),?How often did you have 6 or more drinks on one occasion in the past year??Never (0 point),?Points?1,?Interpretation?Negative.?Miscellaneous:?Marital status: . 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 ???He does not smoke nor use any sig. amounts of alcohol. * Medications:?TakingUrsodiol 500 MG Tablet 2 in AM and 1 in PM Orally Twice a dayLosartan Potassium 25 MG Tablet Oral Taking Ursodiol 500 MG Tablet 2 in AM and 1 in PM Orally Twice a dayTaking Losartan Potassium 25 MG Tablet Oral Not-Taking/PRNMotrin IB 200 MG Tablet 1 tablet with food or milk as needed Orally prnNot-Taking/PRN Motrin IB 200 MG Tablet 1 tablet with food or milk as needed Orally prnDiscontinuedMulti Vitamin/Minerals - Tablet as directed Orally once a dayUrsodiol 300 MG Capsule 3 every morning and 2 every evening Orally Twice a dayUrsodiol 500 MG Tablet TAKE 2 TABLETS EVERY MORNING AND 1 EVERY EVENING ORALLY TWICE A DAY Medication List reviewed and reconciled with the patientDiscontinued Multi Vitamin/Minerals - Tablet as directed Orally once a dayDiscontinued Ursodiol 300 MG Capsule 3 every morning and 2 every evening Orally Twice a dayDiscontinued Ursodiol 500 MG Tablet TAKE 2 TABLETS EVERY MORNING AND 1 EVERY EVENING ORALLY TWICE A DAY Medication List reviewed and reconciled with the patient * Allergies:?N.K.D.A.yes[Roxana aguilar Verified] Objective: * Vitals:?Wt: 169 lbs, Ht: 65 in, BMI:28.12 Index, BP: 00/00 mm Hg. * Examination: ???General Examination: ?GENERAL APPEARANCE:?pleasant, well nourished, well developed, in no acute distress.?EYES:?sclera non-icteric.?ORAL CAVITY:?mucosa moist.?NECK/THYROID:?no cervical lymphadenopathy, neck supple.?SKIN:?nonjaundiced, no spider angiomata.?HEART:?S1, S2 normal.?LUNGS:?clear to auscultation bilaterally.?ABDOMEN:?normal bowel sounds, no guarding or rigidity, no guarding or rigidity, no masses palpable, soft, nontender, nondistended.?EXTREMITIES:?no edema.?NEUROLOGIC:?alert and oriented.? Assessment: * Assessment: 1.?Fatty liver - K76.0 (Prim raul)?2.?Elevated liver function tests - R94.5?3.?Liver fibrosis - K74.00? Overall, Leonel appears well. His LFTs are significantly improved and just about normal on his current medical regimen along with his better diet and with weight loss. I did advise him to certainly continue all of this. He does not show any signs nor have any symptoms of progressive liver disease at this time. We did review the importance of remaining compliant with his medication, healthy diet, and exercise for his overall health, as well as specifically for his fatty liver and to hopefully prevent any progressive liver disease. I shall check a followup abdominal ultrasound, along with an alpha-fetoprotein level and liver fibrosis score. I did review with him that we should do these studies yearly. If things remains stable I will plan to seem in one year for a followup office visit. I did advise him to certainly call if he has any problems or questions I can be of assistance with. Leonel was comfortable with this plan. Thank you again for allowing me to participate in Leonel's care. I shall continue to keep you advised of his progress. Plan: * Treatment: * Notes: Continue to keep the weight down, eat healthy, avoid alcohol, exercise, and continue the Ursodiol for the liver??2.?Elevated liver function tests?LAB: LIVER PROFILE ?LAB: ALPHA-FETOPROTEIN,TUMOR MARKER ?LAB: Liver Fibrosis Pnl ?Imaging: US abdomen comp w elastography* 11/04/2023-spoke to Naomi @ centralized scheduling. Nothing to eat or drink for 8 hours before the ultrasound. 11/09/2023-9:30 am. * 3.?Liver fibrosis?LAB: LIVER PROFILE ?LAB: ALPHA-FETOPROTEIN,TUMOR MARKER ?LAB: Liver Fibrosis Pnl ?Imaging: US abdomen comp w elastography* 11/04/2023-spoke to Naomi @ [employer] scheduling. Nothing to eat or drink for 8 hours before the ultrasound. 11/09/2023-9:30 am. * 4.?Others? Continue Ursodiol, 500mg, 3, Orally, Every day.?? * Procedure Codes:?3017F COLOR ECTAL CA SCREEN DOC [id number] TOBACCO NON-[id number] BP SCR NOT PRFRM REC REASON NOS * Preventive Medicine:? ??Counseling:?Care goal follow-up plan:?Above Normal BMI Follow-up?Giving encouragement to exercise,?BMI management provided?Yes.? * Follow Up:?1 Year, prn * * Sign off status: Completed true * Provider:?Jourdan Sotelo MD Date:? 024 Generated for Ramo tiwari/Darine/Pedro Luisitting on:?08/03/2024 12:50 PM EDT History and Physical Notes * HPI (History of Present Illness) Category Sub-Category Detail Notes Category Not es incontinence I saw Leonel in followup today in regard to his underlying history of fatty liver, elevated LFTs, and some liver fibrosis. I last saw Leonel one year ago in October of 2022. He presently feels well and denies any issues with fatigue, pruritus, signs of jaundice, increasing abdominal girth, edema, or abdominal pain. Since that time he reports that he has remained compliant with his ursodiol at 1500 mg daily. He has been watching his diet as best as possible, is exercising, and has lost approximately 5-10 pounds since he was here last. He enjoys a good appetite, without any significant heartburn or dysphagia. He avoids alcohol. His bowel movements have been regular and without any signs of bleeding. His ultrasound from November 2022 did not reveal any sign of liver mass, splenomegaly, ascites, nor significant liver fibrosis on the elastography portion of the ultrasound. He had a normal alpha-fetoprotein level at that time had a liver fibrosis score of F1-F2. His most recent labs from just last month revealed a normal liver profile except for an ALT of 68, a normal CBC with platelet count, normal chemistries and renal function, and a random glucose of 97. Examination Category Sub-Category Detail Notes Category Not es General Examination GENERAL APPEARANCE: pleasant , well [...]
== END 2024-08-03 12:49 | disposition home or self-care (01) ==
LOC: HO.US 12:48
PROVIDERS: PCP Internal Medicine; Visit Provider Urology
DX: N20.0 Calculus of kidney (principal)
CPT/HCPCS: 76775

== ENCOUNTER → 2024-08-03 12:49 | Outpatient (BNV) | payer OTHER, SELFPAY | PROVIDERS: PCP Internal Medicine; Visit Provider Radiology Diagnostic Radiology | DX: N20.0 Calculus of kidney (principal) | CPT/HCPCS: 76775 ==

== ENCOUNTER 2024-10-10 07:22 | Outpatient (REF) | payer OTHER, SELFPAY ==
[2024-10-10 08:16] LABS: Appearance Urine Cloudy; Glucose Urine UA Negative (Negative); PH 5.5 (5.0-9.0); Specific Gravity - Urine 1.025 (1.005-1.025); UMIC TRIGGER UA YES
== END 2024-10-10 07:23 | disposition home or self-care (01) ==
LOC: HO.LAB 07:22
PROVIDERS: Visit Provider Urology
DX: N20.0 Calculus of kidney (principal)
CPT/HCPCS: 81001; 87086

== ENCOUNTER 2024-11-02 13:38 | Outpatient (REF) | payer OTHER, SELFPAY ==
[2024-11-02 13:54] LABS: MANUAL DIFF FLAG NO
--- OUTSIDE RECORDS SUMMARY | 2024-11-02 14:05 | XMS_ITS | Patient Health Record ---
Author Organization [facility] Address [address] [place] [address] Care Team Providers Care Packing Inspector Name Role Phone Ingrid Robert M.D. Primary Care Provider Unavail able Jourdan Sotelo Unavailable [phone] Allergies No Known Allergies Results Component Value Reference Range Notes Liver Fibrosis Pnl Reviewed date:11/17/2023 07:12:22 AM Interpretation: Performing Lab:[facility], [address] [place] [phone] Notes/Report: Liver Fibrosis Score 0.41 Liver Fibrosis [...] a>0.62 and a<=1.00 : A3 (severe activity) BAK-Mfuta-9-Macroglobulin 328 106-279 mg/dL FIB-Haptoglobin 175 43-212 mg/dL FIB-Apolipoprotein A1 151 94-176 mg/dL FIB-Total Bilirubin 0.7 0.2-1.2 mg/dL FIB-GGT 31 3-95 U/L FIB-ALT 29 9-46 U/L Reference ID [id number] Footnote SEE NOTE The reliability of results is dependent on compliance with the preanalytical and analytical conditions recommended by [employer]. The tests have to be deferred for: [...] The performance characteristics have been determined by [facility]. It has not been cleared or approved by the U.S. Food and Drug Administration. Performance characteristics refer to the analytical performance of the test. [employer], the associated logo, [employer] and all associated [employer] kim are the registered trademarks of [employer]. All third alliance party kim - (R) and (TM) - are the property of their respective owners. (C) [id number] Five[employer]. All rights reserved. THIS TEST WAS PERFORMED AT: [facility] [address] [place] [address] BENITO GARCIA MD,PHD,MIRNA US abdomen comp w elastograp hy Reviewed date:09/23/2024 07:10:17 PM Interpretation: Performing Lab: Notes/Report: [address] [address] Ultrasound Report Signed Patient: Leonel Nix MR#: [id number] [birth year] : 1975 Acct:[id number] Age/Sex: 48 / M ADM Date: 11/09/23 Loc: HO.US Attending Dr: Jourdan Sotelo MD Ordering Physician: Jourdan Sotelo MD Date of Service: 11/09/23 Procedure(s): US abdomen comp w elastography Accession Number(s): [id number] cc: Ingrid Robert MD; Jourdan Sotelo MD [...] 11/12/23 1235 DD/ 0929 TD/TT: 11/09/23 1000 Metallurgy Teacher: Liver Panel Reviewed date:11/13/2023 05:16:41 PM Interpretation: Performing Lab:[facility], [address] [place] [phone] Notes/Report: Bilirubin Total 0.7 0.0-1.0 mg/dL Bilirubin Direct 0.2 0.0-0.5 mg/dL Aspartate Amino Transferase 31 5-37 U/L Alanine Aminotransferase 59 0-40 U/L Total Protein 8.0 6.5-8.0 g/dL Albumin Level 4.4 3.5-5.0 g/dL Alkaline Phosphatase 65 39-117 U/L Alpha Fetoprotein Reviewed date:11/17/2023 07:12:13 AM Interpretation: Performing Lab:[facility], [address] [place] [phone] Notes/Report: Alpha Fetoprotein 3.0 <6.1 ng/mL This test was performed using the Rachel Keri chemiluminescent method. Values obtained from different assay methods cannot be used interchangeably. AFP levels, regardless of value, should not be interpreted as absolute evidence of the presence or absence of disease. THIS TEST WAS PERFORMED AT: [facility] [address] [place] [phone] LUCILA CARROLL MD Reason For Referral No Information Medications Medication SIG (Take, Route, Frequency, Duration) Notes Start Date End Date Status Losartan Potassium 50 MG 1 tablet Orally Once a day for 90 days Active Ursodiol 500 MG TAKE 2 TABLETS EVERY MORNING AND 1 EVERY EVENING ORALLY TWICE A DAY for 90 Active Motrin IB 200 MG 1 tablet with food o r milk as needed Orally prn Not-Taking amLODIPine Besylate 2.5 MG 1 tablet Orally Once a day Active Sertraline HCl 25 MG 1 tablet Orally Onc e a day Active Immunizations Vaccine Route Administration Date Status Comme nts Influenza Unknown 12/29/2018 Administered Influenza Unknown 11/07/2019 Administered Influenza Unknown 12/17/2020 Administered Influenza Unknown 11/28/2021 Administered Influenza Unknown 11/15/2023 Administered Influenza Unknown 01/06/2018 Refused Social History Tobacco Use: Social History Observation [...] use an y sig. amounts of alcohol He does not smoke nor use an y sig. amounts of alcohol He does not smoke nor use an y sig. amounts of alcohol He does not smoke nor use an y sig. amounts of alcohol He does not smoke nor use an y sig. amounts of alcohol He does not smoke nor use an y sig. amounts of alcohol He does not smoke nor use an y sig. amounts of alcohol He does not smoke nor use an y sig. amounts of alcohol He does not smoke nor use an y sig. amounts of alcohol He does not smoke nor use an y sig. amounts of alcohol He does not smoke nor use an y sig. amounts of alcohol He does not smoke nor use an y sig. amounts of alcohol He does not smoke nor use an y sig. amounts of alcohol He does not smoke nor use an y sig. amounts of alcohol Problems Problem Type SNOMED Code ICD Code Onset Dates Problem Status W/U Status Risk Notes Problem [id number] Colon cancer screening (Z12.11) Active confirmed Problem 199560623 Elevated liver function tests (R79.89) Active confirmed Problem 385893995 Elevated liver enzymes (R74.8) Active confirmed Problem 609169532 Fatty liver (K76.0) Active confirmed Problem 180517431 Elevated liver function tests (R94.5) Active confirmed Problem Hepatic fibrosis (38219768) Liver fibrosis (K74.00) Active confirmed Problem 32893921 Fibrosis of liver (K74.00) Active confirmed Vital Signs Temperature 98.6 degrees Fahrenheit 11/02/2024 Blood pressure diastolic 01 mm Hg 11/02/2024 Height 65 in 11/02/2024 Blood pressure systolic 001 mm Hg 11/02/2024 Weight 173 lbs 11/02/2024 BMI 28.79 kg/m2 11/02/2024 Encounters Encounter Location Date Provider Diagnosis [facility] [address] [place] [address] 11/02/2024 Jourdan Sotelo Liver fibrosis K74.00 ; Fatty liver K76.0 ; Elevated liver function tests R94.5 and Colon cancer screening Z12.11 [facility] [address] [place] [address] 11/04/2023 Jourdan Sotelo Fatty liver K76.0 ; Elevated liver function tests R94.5 and Liver fibrosis K74.00 Assessments Encounter Date Diagnosis (ICD Code) Assessment Notes Treatment Notes Treatment Clinical Notes Section Notes 11/02/2024 Liver fibrosis (ICD-10 - K74.00) Overall, Leonel appears quite well. He is not having any new or worrisome GI complaints. He does not show any signs nor have any symptoms of progressive liver disease. His studies from the past 1 year including the ultrasound and blood work all appeared quite reassuring as well. Miy only concern is that his liver biopsy in 2021 did show some evidence of possible early bridging fibrosis. However at that time his liver enzymes were much higher with the ALT as high as 120. At this point, since he appears very well, has no worrisome symptoms, and the last couple of liver profiles have appeared very reassuring, I advised him that I would be inclined to simply continue the current regimen of the ursodiol, dietary restriction, exercise, and close monitoring of his weight.. I am going to check a repeat abdominal ultrasound, along with the below laboratories including a liver fibrosis score and liver profile. Depending upon his clinical course we may want to repeat a liver biopsy at some point to compare to the one from 2021 in regards to the degree of fibrosis and inflammation. We may need to put him on a trial of something such as Rezdiffra which is a newer medication for fatty liver. However, I would definitely want him to have a liver biopsy first to justify the need for that new medicine. The Rezdiffra, while approved by the FDA on a fast track , has not been completely vetted as yet and it will be important to be sure there are no adverse reactions on this medication in regard to patient's underlying chronic liver disease. I will plan to see Leonel in 1 year for a follow-up visit but will be in touch with him as to his upcoming studies and if need be we can always schedule a liver biopsy prior to my seeing him next year. We did review that he will be due for a screening colonoscopy in 2032 given his negative exam 2 years ago and no family history of colorectal cancer. Leonel was comfortable with this plan. Thank you again for allowing me to participate in Leonel's care. I shall continue to keep you advised of his progress. 11/04/2023 Fatty liver (ICD-10 - K76.0) Continue [...] to keep you advised of his progress. 11/02/2024 Fatty liver (ICD-10 - K76.0) Continue to watch your diet, exercise, and lose a little weight in regard to the fatty liver Overall, Leonel appears quite well. He is not having any new or worrisome GI complaints. He does not show any signs nor have any symptoms of progressive liver disease. His studies from the past 1 year including the ultrasound and blood work all appeared quite reassuring as well. Miy only concern is that his liver biopsy in 2021 did show some evidence of possible early bridging fibrosis. However at that time his liver enzymes were much higher with the ALT as high as 120. At this point, since he appears very well, has no worrisome symptoms, and the last couple of liver profiles have appeared very reassuring, I advised him that I would be inclined to simply continue the current regimen of the ursodiol, dietary restriction, exercise, and close monitoring of his weight.. I am going to check a repeat abdominal ultrasound, along with the below laboratories including a liver fibrosis score and liver profile. Depending upon his clinical course we may want to repeat a liver biopsy at some point to compare to the one from 2021 in regards to the degree of fibrosis and inflammation. We may need to put him on a trial of something such as Rezdiffra which is a newer medication for fatty liver. However, I would definitely want him to have a liver biopsy first to justify the need for that new medicine. The Rezdiffra, while approved by the FDA on a fast track , has not been completely vetted as yet and it will be important to be sure there are no adverse reactions on this medication in regard to patient's underlying chronic liver disease. I will plan to see Leonel in 1 year for a follow-up visit but will be in touch with him as to his upcoming studies and if need be we can always schedule a liver biopsy prior to my seeing him next year. We did review that he will be due for a screening colonoscopy in 2032 given his negative exam 2 years ago and no family history of colorectal cancer. Leonel was comfortable with this plan. Thank [...] to keep you advised of his progress. 11/02/2024 Elevated liver function tests (ICD-10 - R94.5) Overall, Leonel appears quite well. He is not having any new or worrisome GI complaints. He does not show any signs nor have any symptoms of progressive liver disease. His studies from the past 1 year including the ultrasound and blood work all appeared quite reassuring as well. Miy only concern is that his liver biopsy in 2021 did show some evidence of possible early bridging fibrosis. However at that time his liver enzymes were much higher with the ALT as high as 120. At this point, since he appears very well, has no worrisome symptoms, and the last couple of liver profiles have appeared very reassuring, I advised him that I would be inclined to simply continue the current regimen of the ursodiol, dietary restriction, exercise, and close monitoring of his weight.. I am going to check a repeat abdominal ultrasound, along with the below laboratories including a liver fibrosis score and liver profile. Depending upon his clinical course we may want to repeat a liver biopsy at some point to compare to the one from 202 in regards to the degree of fibrosis and inflammation. We may need to put him on a trial of something such as Rezdiffra which is a newer medication for fatty liver. However, I would definitely want him to have a liver biopsy first to justify the need for that new medicine. The Rezdiffra, while approved by the FDA on a fast track , has not been completely vetted as yet and it will be important to be sure there are no adverse reactions on this medication in regard to patient's underlying chronic liver disease. I will plan to see Leonel in 1 year for a follow-up visit but will be in touch with him as to his upcoming studies and if need be we can always schedule a liver biopsy prior to my seeing him next year. We did review that he will be due for a screening colonoscopy in 2032 given his negative exam 2 years ago and no family history of colorectal cancer. Leonel was comfortable with this plan. Thank you again for allowing me to participate in Leonel's care. I shall continue to keep you advised of his progress. 11/02/2024 Colon cancer screening (ICD-10 - Z12.11) Repeat colonoscopy in 2032 Overall, Leonel appears quite well. He is not having any new or worrisome GI complaints. He does not show any signs nor have any symptoms of progressive liver disease. His studies from the past 1 year including the ultrasound and blood work all appeared quite reassuring as well. Miy only concern is that his liver biopsy in 2021 did show some evidence of possible early bridging fibrosis. However at that time his liver enzymes were much higher with the ALT as high as 120. At this point, since he appears very well, has no worrisome symptoms, and the last couple of liver profiles have appeared very reassuring, I advised him that I would be inclined to simply continue the current regimen of the ursodiol, dietary restriction, exercise, and close monitoring of his weight.. I am going to check a repeat abdominal ultrasound, along with the below laboratories including a liver fibrosis score and liver profile. Depending upon his clinical course we may want to repeat a liver biopsy at some point to compare to the one from 2021 in regards to the degree of fibrosis and inflammation. We may need to put him on a trial of something such as Rezdiffra which is a newer medication for fatty liver. However, I would definitely want him to have a liver biopsy first to justify the need for that new medicine. The Rezdiffra, while approved by the FDA on a fast track , has not been completely vetted as yet and it will be important to be sure there are no adverse reactions on this medication in regard to patient's underlying chronic liver disease. I will plan to see Leonel in 1 year for a follow-up visit but will be in touch with him as to his upcoming studies and if need be we can always schedule a liver biopsy prior to my seeing him next year. We did review that he will be due for a screening colonoscopy in 2032 given his negative exam 2 years ago and no family history of colorectal cancer. Leonel was comfortable with this plan. Thank you again for allowing me to participate in Leonel's care. I shall continue to keep you advised of his progress. Plan Of Treatment Pending Test Test Name Order Date LIVER PROFILE 12/07/2019 LIVER PROFILE 06/04/2021 LIVER PROFILE 11/02/2024 LIVER PROFILE 03/14/2022 LIVER PROFILE 02/22/2015 LIVER PROFILE 09/29/2021 LIVER PROFILE 02/04/2015 LIVER PROFILE 05/15/2019 LIVER PROFILE 03/04/2022 LIVER PROFILE 07/27/2021 LIVER PROFILE 05/04/2019 LIVER PROFILE 04/22/2021 LIVER PROFILE 11/05/2022 LIVER PROFILE 04/11/2020 LIVER PROFILE 11/04/2023 CBC w DIFF 04/22/2021 CBC w DIFF 11/05/2022 CBC w DIFF 12/07/2019 CBC w DIFF 06/04/2021 CBC w DIFF 11/02/2024 CBC w DIFF 07/27/2021 PROTHROMBIN TIME (PT, INR) 12/07/2019 PROTHROMBIN TIME (PT, INR) 06/04/2021 PARTIAL THROMBOPLASTIN TIME (PTT) 2021 ALPHA-FETOPROTEIN,TUMOR MARKER 4 ALPHA-FETOPROTEIN,TUMOR MARKER 3 ALPHA-FETOPROTEIN,TUMOR MARKER 5 US LIVER BIOPSY CORE GUIDE 06/04/2021 HCV LIVER FIBROSIS, FIBRO TEST 2 HCV LIVER FIBROSIS, FIBRO TEST 0 US ABDOMEN COMP WITH ELASTOGRAPHY 2021 Prothrombin Time INR 07/27/2021 Prothrombin Time INR 04/22/2021 Prothrombin Time INR 11/02/2024 Liver Fibrosis Pnl 11/02/2024 Liver Fibrosis Pnl 11/05/2022 US abdomen comp w elastography 5 US abdomen comp w elastography 3 Future Test Test Name Order Date COLONOSCOPY 03/04/2022 Next Appt Details Provider Name:Jourdan Sotelo , 11/01/2025 01:00:00 PM, [address] [facility], [address], [place], [address], Insurance Providers Payer Name Payer Address Payer Phone Subscriber Number Group Number Insured Name Patient Relationship to Insured Coverage Start Date Coverage End Date [facility] [employer] [facility] [address] [id number] [phone] [id number] LEONEL NIX Self - patient is the insured Medical (General) History Medical History History ICD Code EGD [id number] HH- no esophagitis, n o [facility] Fatty liver- biopsy in 1999- fatty liver and mild inflammation-no fibrosis- neg.abdominal U/S in 2010- -stopped Jose before 2013, but resumed in early 2019 Asthma Denies [place],DM,CVA,renal disease UTI's Liver biopsy in May revealed evidence of the fatty liver, inflammation, and some fibrosis with early bridging. There was no cirrhosis. Hyperlipidemia Kidney stones Negative screening colonoscopy in 03/2022 Hypertension Anxiety Surgical History Surgery Date(Month/Year) Left knee arthroscopy 08/2018
--- OUTSIDE RECORDS SUMMARY | 2024-11-02 14:05 | XMS_ITS | Clinical Summary ---
Author Organization [facility] [address] [place] [address] [place] [phone] Phone Care Team Providers Care Publications Distribution Clerk Name Role Phone Ingrid Robert MD Primary Care Provider [phone] Allergies No known active allergies Medications albuterol HFA (PROAIR HFA ; PROVENTIL HFA ; VENTOLIN HFA) 90 mcg/actuation inhaler Inhale 2 Puffs into the lungs every 4 hours as needed for Cough or Wheezing. 11/28/2023 Active ursodioL (ACTIGALL) 300 mg capsule TAKE 2 CAPSULES BY MOUTH TWICE A DAY 05/16/2019 Active cholecalciferol (VITAMIN D-3) 25 mcg (1,000 unit) tablet Take 2 tablets (2,000 Units total) by mouth 1 (one) time each day. Active docosahexaenoic acid/epa (FISH OIL ORAL) Take by mouth. Active multivitamin tablet Take 1 tablet by mouth 1 (one) time each day. Active fluticasone propionate (FLONASE) 50 mcg/actuation nasal spray SPRAY 2 SPRAYS INTO EACH NOSTRIL EVERY DAY 48 mL 5 06/22/2024 Active losartan (COZAAR) 50 mg tablet Take 1 tablet (50 mg total) by mouth 1 (one) time each day. 90 each 1 08/10/2024 Active sertraline (ZOLOFT) 25 mg tablet Take 1 pill daily 90 tablet 1 08/10/2024 Active amLODIPine (NORVASC) 2.5 mg tablet Take 1 tablet (2.5 mg total) by mouth 1 (one) time each day. 90 tablet 1 08/10/2024 Active Active Problems Problem Noted Date Diagnosed Date Anxiety 04/18/2024 Primary hypertension 10/18/2023 Kidney stones 04/28/2022 Overview (12/26/2023): [facility] [place] Urology Hyperlipidemia 04/28/2020 Obstructive sleep apnea 04/25/2019 Overview (12/26/2023): UNTREATED (April 2022) [facility] Home Sleep Apnea Test: Date 04/21/2019; Wt 170#; BMI 30; BENITO 7, AI 0; HI 7; Unclassified apneas 0; Obstructive apneas 0; Central apneas 1; Mixed apneas 0; hypopneas 42; average oxygen saturation 95% (lowest 90% without saturations <88% for 5% or more of study) - Obstructive Sleep Apnea - mild; mostly hypopneas; without sleep related hypoventilation by 2019 home sleep apnea test. Medial meniscus tear 02/16/2019 Overview (12/26/2023): Left; s/p repair 2018 Overweight (BMI 25.0-29.9) 02/16/2019 Asthma 11/29/2011 Overview (12/26/2023): No hospitalizations; Advair during the summer (associated with allergies) GERD (gastroesophageal reflux disease) 2 Overview (12/26/2023): In the past, controlled with omeprazole NAFLD (nonalcoholic fatty liver disease) 012 Overview (12/26/2023): Follows with Dr Sotelo. Encounters Date Type Department Care Team Description 08/10/2024 7:30 AM EDT Office Visit Adult Medicine [address] [phone] Ingrid Robert MD Primary hypertension (Primary Dx); Mixed hyperlipidemia; Generalized anxiety disorder from Last 3 Months Immunizations Name Administration Dates Next Due COVID-19 (Moderna/Spikevax) 12yo and older 11/18/2023 Influenza Quadravalent, MDCK , 0.5ml, preservative free (Flucelvax) 6mo and older 11/13/2021,02/16/2019 Influenza trivalent, 0.5mL, preservative free (Fluarix; FluLaval; Fluzone) ages 6mo and older (Afluria) 3 years and older 10/21/2023,10/31/2022,11/28/2020,04/13,02/13/2016,01/14/2014,11/29/2011 Influenza trivalent, MDCK, 0 .5mL, preservative free (Flucelvax) 6mo and older 10/21/2023 Influenza, Unspecified 10/19/2019 Moderna SARS-CoV-2 COVID-19, mRNA, LNP-S, preservative free 10/31/2022 Pfizer SARS-CoV-2 COVID-19, mRNA, LNP-S, preservative free 07/04/2020,06/12/2020 Pneumococcal polysaccharide 23 valent (Pneumovax 23) 2yo and older 04/28/2022 Tdap Tetanus diptheria acell ular pertussis (Boostrix; Adacel) 7yo and older 08/28/2012 Surgical History Surgery Date Site/Laterality Comments WISDOM TOOTH EXTRACTION PROCEDURE: HISTORICAL WISDOM TEETH EXTRACTION OTHER SURGICAL HISTORY 2019 Left PROCEDURE: [place] ARTHROSCOPY KNEE MENISCAL TRNSPLJ MED/LAT Medical History Medical History Date Comments Fatty liver 11/29/2011 DX:Fatty liver Asthma 11/29/2011 DX:Asthma GERD (gastroesophageal reflu x disease) 11/29/2011 DX:GERD (gastroesophageal re flux disease) Family History Medical History Relation Name Comments Breast cancer Aunt maternal unilateral? Diabetes Father HTN, HLD Diabetes Mother HTN, HLD Alzheimer's disease Paternal Grandmother Esophageal cancer Uncle maternal TWO UNCLES - nonsmokers Relation Name Status Comments Aunt maternal Alive Brother x 2 Alive Father Alive Maternal Grandfather Maternal Grandmother Mother Alive Paternal Grandfather Paternal Grandmother Uncle maternal Alive Social History Tobacco Use Types Packs/Day Years Used Date Smoking Tobacco: Never Smokeless Tobacco: Never Tobacco Cessation:Counseling Given: Not Answered Alcohol Use Standard Drinks/Week Comments Yes 0 (1 standard drink = 0.6 oz pur e alcohol) Housing Instability Answer Date Recorde d Are you worried that in the next 2 months you may not have stable housing? No 08/09/2024 Food Access & Nutrition Answer Date Rec orded Do you have access to a vari ety of food including fruits and vegetables? Yes 08/09/2024 Access to Healthcare Answer Date Record ed Within the last 3 months, ho w many times did you visit the emergency department for your medical care? 0 08/09/2024 Health Literacy Answer Date Recorded How often do you need to hav e someone help you when you read instructions, pamphlets, or other written material from your doctor or pharmacy? Never 08/09/2024 Caregiver: How often do you need to have someone help you when you read instructions, pamphlets, or other written material from your doctor or pharmacy? Not on file 08/09/2024 Financial Risk Answer Date Recorded How hard is it for you to pa y for the very basics like food, housing, medical care, and air conditioning / heating? Patient declined 08/09/2024 Transportation Answer Date Recorded Has the lack of transportati on kept you from meetings, work, or from getting things needed for daily living? No Has the lack of transportati on kept you from medical appointments or from getting medications? No 08/09/2024 Social Isolation Answer Date Recorded How often do you feel lonely or isolated from th ose around you? Never 08/09/2024 Food Risk Answer Date Recorded Within the past 12 months we worried whether our food would run out before we got money to buy more. Never true 08/09/2024 Within the past 12 months th e food we bought just didn't last and we didn't have money to get more. Never true 08/09/2024 Dependent Care Answer Date Recorded Do you need help finding or paying for care for your loved ones. For example, children librarian or elderly care for an older adult? No 08/09/2024 Education Answer Date Recorded Do you think completing more education or training, like finishing a GED, going to college, or learning a trade, would be helpful for you? N/A 08/09/2024 Employment and Income Answer Date Recor ded During the last four weeks, have you been actively looking for work? No 08/09/2024 Living Situation Answer Date Recorded What is your living situation? 0 08/09/2024 Sex and Gender Information Value Date Recorded Sex Assigned at Not on file Legal Sex Male 1:46 AM EST Gender Identity Not on file Sexual Orientation Not on file Obstetrics History Last Filed Vital Signs Vital Sign Reading Time Taken Comments Blood Pressure 122/82 08/10/2024 7:33 AM EDT Pulse 60 08/10/2024 7:33 AM EDT Temperature 36.4 C (97.5 F) 08/10/2024 7:33 AM EDT Respiratory Rate 14 08/10/2024 7:33 AM EDT Oxygen Saturation 99% 08/10/2024 7:33 AM EDT Inhaled Oxygen Concentration - - Weight 75.8 kg (167 lb) 08/10/2024 7:33 AM EDT Height 165.1 cm (5' 5 ) 08/10/2024 7:33 AM EDT Body Mass Index 27.79 08/10/2024 7:33 AM EDT Plan of Treatment Upcoming Encounters Date Type Department Care Team (Late st Contact Info) Description 02/11/2025 8:30 AM EST Office Visit Adult Medicine [address] [phone] Marii Cruz PA [address] [place] [phone] Health Maintenance Due Date Last Done Comments Hepatitis A Vaccines (1 of 2 - Risk 2-dose series) 02/19/1996 Hepatitis B Vaccines (1 of 3 - 19+ 3-dose series) 02/19/1996 Colorectal Cancer Screening: Colonoscopy 02/06/2022 HIV Screening 02/06/2022 Hepatitis C Screening 02/06/2022 DTaP,Tdap,and Td Vaccines (2 - Td or Tdap) 08/28/2022 08/28/2012 Pneumococcal Vaccine: Pediatrics (0 to 5 Years) and At-Risk Patients (6 to 49 Years) (2 of 2 - PCV) 04/29/2023 04/28/2022 Influenza Vaccine (#1) 2024 , 10/21/2023, 10/31/2022, Additional history exists Hypertension/CHF/CAD Annual BMP Blood Test 03/30/2025 03/30/2024, 12/12/2023, 12/12/2023, Additional history exists Social Influencers of Health Screening 08/09/2025 08/09/2024 Cholesterol Screening (Lipid Panel) 08/10/2029 08/10/2024, 03/30/2024, 12/12/2023, Additional history exists COVID-19 Vaccine Completed 11/18/2023, 02/2022, 10/31/2022, Additional history exists Depression Screening Completed 08/09/2024 HIB Vaccines Aged Out No longer eligi ble based on patient's age to complete this topic HPV Vaccines Aged Out No longer eligi ble based on patient's age to complete this topic IPV Vaccines Aged Out No longer eligi ble based on patient's age to complete this topic MMR Vaccines Aged Out No longer eligi ble based on patient's age to complete this topic Meningococcal ACWY Vaccine Aged Out N o longer eligible based on patient's age to complete this topic Meningococcal B Vaccine Aged Out No l onger eligible based on patient's age to complete this topic RSV Immunization Patients Under 20 months Aged Out No longer eligible based on patient's age to complete this topic Varicella Vaccines Aged Out No longer eligible based on patient's age to complete this topic Procedures Procedure Name Priority Date/Time Associated Diagnosis Comments LIPID PANEL WITH REFLEX TO DIRECT LDL Routine 08/10/2024 8:12 AM EDT Mixed hyperlipidemia COMPREHENSIVE METABOLIC PANEL Routine 03/30/2024 9:18 AM EST Primary hypertension from Last 3 Months or Most Recently Relevant to Health Maintenance Results * (ABNORMAL) Lipid panel with reflex to direct LDL (08/10/2024 8:12 AM EDT) Cholesterol 215(H) 0 - 200 mg/dL LAB CHEMISTRY METHOD 08/10/2024 10:45 AM EDT [facility] Triglycerides 140 0 - 150 mg/dL LAB CHEMISTRY METHOD 08/10/2024 10:45 AM EDT [facility] HDL 41 >=40 mg/dL LAB CHEMISTRY METHOD 08/10/2024 10:45 AM EDT [facility] LDL Calculated 146(H) 0 - 100 mg/dL LAB CHEMISTRY METHOD 08/10/2024 10:45 AM EDT [facility] VLDL Cholesterol Humberto 28 mg/dL LAB CHEMISTRY METHOD 08/10/2024 10:45 AM EDT [facility] Non HDL Chol. (LDL+VLDL) 174(H) <145 mg/dL LAB CHEMISTRY METHOD 08/10/2024 10:45 AM EDT [facility] Chol/HDL Ratio 5.2(H) 0.0 - 4.4 LAB CHEMISTRY METHOD 08/10/2024 10:45 AM EDT [facility] Blood Venous blood specimen / Unknown Venipuncture / Unknown 08/10/2024 8:12 AM EDT 08/10/2024 8:12 AM EDT us Ingrid Robert MD LAB BLOOD ORDERABLES Final Resul t [facility] [address] [place] [address], [place] [phone] * Comprehensive metabolic panel (03/30/2024 9:18 AM EST) Sodium 138 133 - 145 mmol/L LAB CHEMISTRY METHOD 03/30/2024 1:22 PM [facility] Potassium 4.2 3.5 - 5.5 mmol/L LAB CHEMISTRY METHOD 03/30/2024 1:22 PM [facility] Chloride 105 96 - 110 mmol/L LAB CHEMISTRY METHOD 03/30/2024 1:22 PM [facility] CO2 29 21 - 32 mmol/L LAB CHEMISTRY METHOD 03/30/2024 1:22 PM [facility] Anion Gap 4 3 - 11 LAB CHEMISTRY METHOD 03/30/2024 1:22 PM [facility] Glucose 92 70 - 100 mg/dL LAB CHEMISTRY METHOD 03/30/2024 1:22 PM [facility] BUN 11 5 - 25 mg/dL LAB CHEMISTRY METHOD 03/30/2024 1:22 PM [facility] Creatinine 0.80 0.70 - 1.30 mg/dL LAB CHEMISTRY METHOD 03/30/2024 1:22 PM [facility] eGFR 110 >=60 mL/min/1. 73m2 LAB CHEMISTRY METHOD 03/30/2024 1:22 PM [facility] Comment:Calculation based on the Chronic Kidney Disease Epidemiology Collaboration (CKD-EPI) equation refit without adjustment for race. BUN/Creatinine Ratio 13.8 LAB CHEMISTRY METHOD 03/30/2024 1:22 PM [facility] Calcium 9.7 8.5 - 10.5 mg/dL LAB CHEMISTRY METHOD 03/30/2024 1:22 PM [facility] AST (SGOT) 19 10 - 42 unit/L LAB CHEMISTRY METHOD 03/30/2024 1:22 PM [facility] ALT (SGPT) 44 10 - 60 unit/L LAB CHEMISTRY METHOD 03/30/2024 1:22 PM [facility] Alkaline Phosphatase 73 42 - 121 unit/L LAB CHEMISTRY METHOD 03/30/2024 1:22 PM [facility] Total Protein 7.7 6.0 - 8.0 g/dL LAB CHEMISTRY METHOD 03/30/2024 1:22 PM [facility] Albumin 4.3 3.2 - 5.0 g/dL LAB CHEMISTRY METHOD 03/30/2024 1:22 PM [facility] Total Bilirubin 0.8 0.0 - 1.4 mg/dL LAB CHEMISTRY METHOD 03/30/2024 1:22 PM [facility] Blood Venous blood specimen / Unknown Venipuncture / Unknown 03/30/2024 9:18 AM EST 03/30/2024 9:18 AM EST us Ingrid Robert MD LAB BLOOD ORDERABLES Final Resul t [facility] [address] [place] [address], from Last 3 Months or Most Recently Relevant to Health Maintenance Insurance [facility] [employer] Care Teams Publications Distribution Clerk Relationship Specialty Start Date End Date Ingrid Robert MD [address] [place] [phone] PCP - General Internal Medicine 02/10/23
[2024-11-02 14:33] LABS: Hematocrit 42.2 % (42.0-52.0); Hemoglobin 15.2 g/dl (14.0-18.0); Imm Gran Abs Auto 0.02 X10*3/uL (0.00-0.03); Imm Gran Pct Auto 0.2 % (0.0-0.4); Lymphocytes Absolute Auto 3.8 X10*3/uL (1.2-4.9); Mean Corpuscular HGB Conc 36.0 g/dl (31.0-36.0); Mean Corpuscular Hemoglobin 32.6 pg (27.0-33.0); Mean Corpuscular Volume 90.6 fL (80.0-98.0); NRBC Abs Auto 0.000 X10*3/uL (0.0-0.012); NRBC Pct Auto 0.0 /100WBC (0.0-0.2); Platelet Count 286 X10*3/uL (160-400); Red Blood Count 4.66 X10*6/uL (4.60-5.80); White Blood Count 8.2 X10*3/uL (4.8-10.8)
[2024-11-02 15:25] LABS: Alanine Aminotransferase 50 U/L (0-40); Albumin Level 4.5 g/dL (3.5-5.0); Alkaline Phosphatase 61 U/L (39-117); Aspartate Amino Transferase 34 U/L (5-37); Total Protein 7.7 g/dL (6.5-8.0)
[2024-11-09 00:33] LABS: FIB-ALT 37 U/L (9-46); FIB-Alpha-2-Macroglobulin 344 mg/dL (106-279); FIB-Apolipoprotein A1 129 mg/dL (94-176); FIB-GGT 27 U/L (3-95); FIB-Haptoglobin 138 mg/dL (43-212); FIB-Total Bilirubin 0.4 mg/dL (0.2-1.2); Liver Fibrosis Score 0.42; Liver Fibrosis Stage F1-F2; Nec Inflam Act Grade A0-A1; Nec Inflam Act Score 0.23
== END 2024-11-02 13:39 | disposition home or self-care (01) ==
LOC: HO.LAB 13:38
PROVIDERS: PCP Internal Medicine; Visit Provider Internal Medicine
DX: K76.0 Fatty (change of) liver, not elsewhere classified (principal); R94.5 Abnormal results of liver function studies; K74.00 Hepatic fibrosis, unspecified; Z11.59 Encounter for screening for other viral diseases
CPT/HCPCS: 36415; 80076; 81596; 82105; 85025; 85610

== ENCOUNTER 2024-11-16 09:00 | Outpatient (REF) | payer OTHER, SELFPAY ==
[2024-11-16 09:41] LABS: INTERNATIONAL NORM RATIO 1.0 (0.9-1.1); Prothrombin Time 11.1 SEC (10.9-12.4)
--- OUTSIDE RECORDS SUMMARY | 2024-11-16 09:43 | XMS_ITS | Clinical Summary ---
Author Organization [facility] [address] [place] [address] [place] [phone] Phone Care Team Providers Care Treating Engineer Name Role Phone Ingrid Robert MD Primary Care Provider [phone] Allergies No known active allergies Medications albuterol [...] hypertension 10/18/2023 Kidney stones 04/28/2022 Overview (12/26/2023): [facility] [place] U[facility] Hyperlipidemia 04/28/2020 Obstructive sleep apnea 04/25/2019 Overview (12/26/2023): UNTREATED (April 2022) [facility] Home Sleep Apnea Test: Date 04/21/2019; Wt [...] 012 Overview (12/26/2023): Follows with Dr Sotelo. Immunizations Name Administration Dates Next Due COVID-19 (Moderna/Spikevax) 12yo and older 11/18/2023 Influenza Quadravalent, MDCK , 0.5ml, preservative free (Flucelvax) 6mo and older 11/13/2021,02/16/2019 Influenza trivalent, 0.5mL, preservative free (Fluarix; FluLaval; Fluzone) ages 6mo and older (Afluria) 3 years and older 10/21/2023,10/31/2022,11/28/2020,04/13,02/13/2016,01/14/2014,11/29/2011 Influenza trivalent, MDCK, 0 .5mL, preservative free (Flucelvax) 6mo and older 11/10/2024,10/21/2023 Influenza, Unspecified 10/19/2019 Moderna SARS-CoV-2 COVID-19, mRNA, LNP-S, preservative free 10/31/2022 Pfizer SARS-CoV-2 COVID-19, mRNA, LNP-S, preservative free 07/04/2020,06/12/2020 Pneumococcal polysaccharide 23 valent (Pneumovax 23) 2yo and older 04/28/2022 Tdap Tetanus diptheria acell ular pertussis (Boostrix; Adacel) 7yo and older 08/28/2012 Surgical History Surgery Date Site/Laterality Comments WISDOM TOOTH EXTRACTION PROCEDURE: HISTORICAL WISDOM TEETH EXTRACTION OTHER SURGICAL HISTORY 2019 Left PROCEDURE: [place] ARTHROSCOPY KNEE MENISCAL TRNSPLJ MED/LAT Medical History [...] care for your loved ones. For example, salesperson children's shoes or elderly care for an older adult? [...] 8:30 AM EST Office Visit Adult Medicine [address] [phone] Marii Cruz PA [address] [place] [phone] Health Maintenance Due Date Last Done Comments Hepatitis B Vaccines (1 of 3 - 19+ 3-dose series) 02/19/1996 Colorectal Cancer Screening: Colonoscopy 02/06/2022 HIV Screening 02/06/2022 Hepatitis C Screening 02/06/2022 DTaP,Tdap,and Td Vaccines (2 - Td or Tdap) 08/28/2022 08/28/2012 Pneumococcal Vaccine: Pediatrics (0 to 5 Years) and At-Risk Patients (6 to 49 Years) (2 of 2 - PCV) 04/29/2023 04/28/2022 Hypertension/CHF/CAD Annual BMP Blood Test 03/30/2025 03/30/2024, 12/12/2023, 12/12/2023, Additional history exists Social Influencers of Health Screening 08/09/2025 08/09/2024 Cholesterol Screening (Lipid Panel) 08/10/2029 08/10/2024, 03/30/2024, 12/12/2023, Additional history exists RSV Immunization Adult Patients (1 - 1-dose 75+ series) 02/19/2052 COVID-19 Vaccine Completed 11/18/2023, 02/2022, 10/31/2022, Additional history exists Depression Screening Completed 08/09/2024 Influenza Vaccine Completed 11/10/2024, , 10/21/2023, Additional history exists HIB Vaccines Aged Out No longer eligi ble based on patient's age to complete this topic HPV Vaccines Aged Out No longer eligi ble based on patient's age to complete this topic Hepatitis A Vaccines Aged Out No long er eligible based on patient's age to complete [...] Procedure Name Priority Date/Time Associated Diagnosis Comments EXTERNAL CLINICAL LAB 11/02/2024 EXTERNAL CLINICAL LAB 11/02/2024 EXTERNAL CLINICAL LAB 11/02/2024 LIPID PANEL WITH REFLEX TO DIRECT LDL Routine 08/10/2024 8:12 AM EDT Mixed hyperlipidemia COMPREHENSIVE METABOLIC PANEL Routine 03/30/2024 9:18 AM EST Primary hypertension from Last 3 Months or Most Recently Relevant to Health Maintenance Results * External clinical lab (11/02/2024) Only the most recent of3 resultswithin the time period is included. us Provider [facility] LAB BLOOD ORDERABLES Fin al Result * (ABNORMAL) Lipid panel with reflex to direct LDL (08/10/2024 8:12 AM EDT) Cholesterol 215(H) 0 - 200 mg/dL LAB CHEMISTRY METHOD 08/10/2024 10:[address] [facility] Triglycerides 140 0 - 150 mg/dL LAB CHEMISTRY METHOD 08/10/2024 10:[address] [facility] HDL 41 >=40 mg/dL LAB CHEMISTRY METHOD 08/10/2024 10:[address] [facility] LDL Calculated 146(H) 0 - 100 mg/dL LAB CHEMISTRY METHOD 08/10/2024 10:[address] [facility] VLDL Cholesterol Humberto 28 mg/dL LAB CHEMISTRY METHOD 08/10/2024 10:[address] [facility] Non HDL Chol. (LDL+VLDL) 174(H) <145 mg/dL LAB CHEMISTRY METHOD 08/10/2024 10:[address] [facility] Chol/HDL Ratio 5.2(H) 0.0 - 4.4 LAB CHEMISTRY METHOD 08/10/2024 10:45 AM [facility] Blood Venous blood specimen / Unknown Venipuncture / Unknown 08/10/2024 8:12 AM EDT 08/10/2024 8:12 AM EDT us Ingrid Robert MD LAB BLOOD ORDERABLES Final Resul t [facility] [address] [place] [address], * Comprehensive metabolic panel (03/30/2024 9:18 AM EST) Sodium 138 133 - 145 mmol/L LAB CHEMISTRY METHOD 03/30/2024 1:22 PM [facility] Potassium 4.2 3.5 - 5.5 mmol/L LAB CHEMISTRY METHOD 03/30/2024 1:22 PM [facility] Chloride 105 96 - 110 mmol/L LAB CHEMISTRY METHOD 03/30/2024 1:22 PM [facility] CO2 29 21 - 32 mmol/L LAB CHEMISTRY METHOD 03/30/2024 1:22 PM [facility] Anion Gap 4 3 - 11 LAB CHEMISTRY METHOD 03/30/2024 1:22 PM [facility] Glucose 92 70 - 100 mg/dL LAB CHEMISTRY METHOD 03/30/2024 1:22 PM [facility] BUN 11 5 - 25 mg/dL LAB CHEMISTRY METHOD 03/30/2024 1:22 PM [facility] Creatinine 0.80 0.70 - 1.30 mg/dL LAB CHEMISTRY METHOD 03/30/2024 1:22 PM [facility] eGFR 110 >=60 mL/min/1. 73m2 LAB CHEMISTRY METHOD 03/30/2024 1:22 PM [facility] Comment:Calculation based on the Chronic Kidney Disease Epidemiology Collaboration (CKD-EPI) equation refit without adjustment for race. BUN/Creatinine Ratio 13.8 LAB CHEMISTRY METHOD 03/30/2024 1:22 PM [facility] Calcium 9.7 8.5 - 10.5 mg/dL LAB CHEMISTRY METHOD 03/30/2024 1:22 PM [facility] AST (SGOT) 19 10 - 42 unit/L LAB CHEMISTRY METHOD 03/30/2024 1:22 PM [facility] ALT (SGPT) 44 10 - 60 unit/L LAB CHEMISTRY METHOD 03/30/2024 1:22 PM [facility] Alkaline Phosphatase 73 42 - 121 unit/L LAB CHEMISTRY METHOD 03/30/2024 1:22 PM [facility] Total Protein 7.7 6.0 - 8.0 g/dL LAB CHEMISTRY METHOD 03/30/2024 1:22 PM [facility] Albumin 4.3 3.2 - 5.0 g/dL LAB CHEMISTRY METHOD 03/30/2024 1:22 PM [facility] Total Bilirubin 0.8 0.0 - 1.4 mg/dL LAB CHEMISTRY METHOD 03/30/2024 1:22 PM [facility] Blood Venous blood specimen / Unknown Venipuncture / Unknown 03/30/2024 9:18 AM EST 03/30/2024 9:18 AM EST us Ingrid Robert MD LAB BLOOD ORDERABLES Final Resul t [facility] [address] [place] [address], [place] [phone] from Last 3 Months or Most Recently Relevant to Health Maintenance Insurance [facility] [employer] Care Teams Treating Engineer Relationship Specialty Start Date End Date Ingrid Robert MD [address] [place] [phone] PCP - General Internal Medicine 02/10/23
== END 2024-11-16 09:01 | disposition home or self-care (01) ==
LOC: HO.LAB 09:00
PROVIDERS: PCP Internal Medicine; Visit Provider Internal Medicine
DX: Z51.81 Encounter for therapeutic drug level monitoring (principal)
CPT/HCPCS: 36415; 85610

== ENCOUNTER 2024-11-22 13:58 | Outpatient (REF) | payer OTHER, SELFPAY | END 2024-11-22 13:59 | disposition home or self-care (01) | LOC: HO.LAB 13:58 | PROVIDERS: PCP Internal Medicine; Visit Provider Urology | DX: N20.0 Calculus of kidney (principal) | CPT/HCPCS: 81003; 88112; 99212 ==

== ENCOUNTER 2024-11-22 13:58 | Outpatient (AMB) | payer OTHER, SELFPAY ==
--- NOTE | 2024-11-22 14:03 | MHC.OFFVIS ---
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 Renal ultrasound was performed on 07/30/2024. There are multiple left kidney stones ranging from 3 mm to 6 mm. The patient has past stones on his own in the past. History of Present Illness The patient is a 49-year-old male presenting with nephrolithiasis. The patient has a history of nephrolithiasis with multiple stones in the left kidney, ranging from 3 mm to 6 mm, as identified in a renal ultrasound performed on August 03, 2024. He has previously passed stones spontaneously without medical intervention. Recently, the patient experienced hematuria, which was a new symptom for him, causing concern and prompting a visit to the hospital for blood testing. The hematuria resolved the following day without further intervention. The patient also reports a recent diagnosis of essential hypertension, which is currently being managed with lifestyle modifications, including increased water intake and the addition of lemon to his water. Results - Renal ultrasound on 08/03/24: Multiple left kidney stones ranging from 3 mm to 6 mm. - Blood test: No signs of infection, microscopic hematuria noted. Plan 1. Nephrolithiasis - Continue monitoring with increased water intake and lemon in water as a preventative measure. - Plan for repeat renal ultrasound in six months to assess stone status. - Consider lithotripsy if symptoms worsen or stones do not pass spontaneously. 08/18/2023--Leonel is a 48-year-old male who has been followed due to nephrolithiasis. He had renal ultrasound done on 08/04/2023. I have reviewed results with him 3 small stones are visualized in the left kidney. The patient states he passed a small stone about 3 weeks ago and brought it into the office. The stone was sent for analysis on 07/29/2023, results calcium oxalate. We will continue to monitor follow-up in 1 year with renal ultrasound at that time. Patient to call if he has renal colic or thinks he is passing another stone. Review of chart:-----03/03/2022--He is here for FU to review metabolic w/u. Previously passed a stone; He was in the emergency room on 12/27/2021 for left flank pain. CT KUB that was done on 12/27/2021 noting a 7 mm distal ureteral stone with mild hydronephrosis. also punctate calcificaitons noted in the right kidney and small stone left kidney. The patient passed the stone. Reviewed 24 urine results and stone analysis: (CaOx) Discussed 24 hour urine results: Total volume 1.12 mL, Calcium 241 mg; Oxalate 22 mg, Sodium 140, Citrate 455 mg. Instructed on importance of fluid intake, Low oxalate diet, low sodium diet. To increase fluids to 2.5 liters The patient c/o's of back/flank pain, will check a renal sono now; and for future FU will monitor with routine imaging in 6 months Imaging: CT KUB 12/27/2021 punctate calyceal right kidney stones, small upper pole left kidney stone 4 mm. 7mm distal left ureteral stone PFSH Medical History Hyperlipidemia Asthma Dysuria Fatty liver Surgical History H/O esophagogastroduodenoscopy Hx of knee surgery Family History Father HTN (hypertension) Mother HTN (hypertension) Social History Patient Tobacco Use Status: Never used Tobacco Results AMB Urinalysis, Automated UA Leukoctes 0 Kevin/uL Last Edit by Thelma Santiago on 11/22/24 17:07 UA Nitrite Negative Last Edit by Thelma Santiago on 11/22/24 17:07 UA Urobilinogen 3.5 mg/dL Last Edit by Thelma Santiago on 11/22/24 17:07 UA Protein 0 mg/dL Last Edit by Thelma Santiago on 11/22/24 17:07 UA pH 6.0 Last Edit by Thelma Santiago on 11/22/24 17:07 UA Blood 200 Agustín/uL Last Edit by Thelma Santiago on 11/22/24 17:07 UA Specific [place] 1.015 Last Edit by Thelma Snatiago on 11/22/24 17:07 UA Ketone Negative Last Edit by Thelma Santiago on 11/22/24 17:07 UA Bilirubin 0 mg/dL Last Edit by Thelma Santiago on 11/22/24 17:07 UA Glucose 0 mg/dL Last Edit by Thelma Santiago on 11/22/24 17:07 Results Reviewed Results Reviewed: Date of Service: 08/03/24 EXAMINATION: US KIDNEY BILATERAL HISTORY: N20.0 - Calculus of kidney TECHNIQUE: Real-time grayscale ultrasound imaging of the kidneys was performed and images were reviewed. COMPARISON: Comparison is made with the prior examination dated 11/09/2023. FINDINGS: Right kidney: The right kidney measures 12.4 x 6.0 x 4.5 cm. Renal parenchymal echotexture and thickness are normal. There are no masses. Tiny echogenic focus is noted in the interpolar region which could represent a tiny calculus. There is no hydronephrosis. Left Kidney: The left kidney measures 11.5 x 4.8 x 4.4 cm. Renal parenchymal echotexture and thickness are normal. There are no masses. Multiple nonobstructing calculi are noted including a 6 x 6 x 8 mm calculus at the upper pole, a 4 x 2 x 3 mm calculus in the interpolar region, and 3 x 2 x 3 mm and 3 x 3 x 2 mm calculi at the lower pole. There is no hydronephrosis. IMPRESSION: Left nephrolithiasis as described. No hydronephrosis. Date of Service: 08/04/23 EXAMINATION: US RETROPERITONEAL LIMITED (RENAL ONLY) CLINICAL INFORMATION: Calculus of kidney. COMPARISON: US abdomen complete with liver elastography 12/03/2022. Renal ultrasound 04/01/2022. CT abdomen and pelvis 12/27/2021. TECHNIQUE: Real-time imaging of the kidneys. Limited visualization due to bowel gas. FINDINGS: RIGHT KIDNEY: 11.9 x 5.7 x 5.4 cm (SAG x AP x TRV). No hydronephrosis. No renal calculi. Renal cortical thickness is normal. Limited visualization. LEFT KIDNEY: 11.4 x 5.5 x 4.7 cm (SAG x AP x TRV). No hydronephrosis. Renal cortical thickness is normal. Limited visualization. 3 mm mid pole, 3 mm lower pole and 2 mm lower pole calculi. IMPRESSION: Left nephrolithiasis. No hydronephrosis. Date of Service: 12/27/21 EXAMINATION: CT ABDOMEN AND PELVIS WITHOUT CONTRAST? CLINICAL INFORMATION: 46-year-old male with left flank pain.? COMPARISON: Abdomen ultrasound from 05/15/2019 and 06/25/2021.? FINDINGS: LUNG BASES: Normal. No pulmonary consolidation or pleural effusion.? LIVER: Mild hepatomegaly. Liver parenchyma has attenuation of approximately 35 Hounsfield units, consistent with steatosis. No focal lesions are seen on these noncontrast images. GALLBLADDER AND BILIARY TREE: Gallbladder is without radiopaque stones, wall thickening or pericholecystic fluid.? No dilated bile ducts. PANCREAS: Normal. No edema, pancreatic ductal dilatation or mass.? SPLEEN: Normal.? ADRENAL GLANDS: Normal.? KIDNEYS AND URETERS: The right kidney appears to have a few punctate calyceal stones, as seen on the 0.6 mm axial images, but is otherwise unremarkable. The left kidney has a punctate calyceal stone in its lower pole and 0.4 cm stone in its upper pole. Mild hydronephrosis and moderate hydroureter are caused by a 0.3 x 0.5 x 0.7 stone in the distal ureter located just above the level of the ureterovesical junction. BLADDER:? Normal. No calculi or wall thickening. BOWEL AND PERITONEUM: Stomach is unremarkable. No dilated loops of bowel. The appendix is normal. No overt bowel wall thickening or mesenteric fat stranding. No free fluid or pneumoperitoneum. ABDOMINAL WALL: Incidentally noted is a fat-containing left inguinal hernia.? VASCULATURE: Unremarkable. LYMPH NODES: No pathologic sized lymph nodes in the abdomen or pelvis. No inguinal lymphadenopathy. PELVIC VISCERA: Unremarkable. SKELETAL: Bone islands of each femoral head. No suspicious bone lesions. Mild spondylosis of the visualized lower thoracic and lumbar spine. 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 IMPRESSION: *? Left-sided hydronephrosis is caused by a 0.3 x 0.5 x 0.7 cm stone of the distal ureter. *? Small, 0.4 cm stone is present in the upper pole of the left kidney. Also, there appear to be a few punctate calyceal stones. *? Mild hepatomegaly and diffuse hepatic steatosis. Assessment & Plan Assessment & Plan Orders: Orders AMB Urinalysis Automated Today N20.0 - Calculus of kidney, R30.0 - Dysuria Urine Cytology Today N13.30 - Unspecified hydronephrosis, N20.0 - Calculus of kidney, N20.1 - Calculus of ureter, R30.0 - Dysuria Coding
--- OUTSIDE RECORDS SUMMARY | 2024-11-22 18:28 | XMS_ITS | Clinical Summary ---
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 For example, maternal child nurse or elderly care for an older adult? [...] 8:30 AM EST Office Visit Adult Medicine [address] [phone] Marii Cruz PA [address] [place] [phone] Health Maintenance Due Date Last Done Comments [...] LAB CHEMISTRY METHOD 08/10/2024 10:[address] [facility] Triglycerides 140 0 - 150 mg/dL LAB CHEMISTRY METHOD 08/10/2024 10:[address] [facility] HDL 41 >=40 mg/dL LAB CHEMISTRY METHOD 08/10/2024 10:[address] [facility] LDL Calculated 146(H) 0 - 100 mg/dL LAB CHEMISTRY METHOD 08/10/2024 10:[address] [facility] VLDL Cholesterol Humberto 28 mg/dL LAB CHEMISTRY METHOD 08/10/2024 10:[address] [facility] Non HDL Chol. (LDL+VLDL) 174(H) <145 mg/dL LAB CHEMISTRY METHOD 08/10/2024 10:[address] [facility] Chol/HDL Ratio 5.2(H) 0.0 - 4.4 LAB CHEMISTRY METHOD 08/10/2024 10:45 AM [facility] Blood Venous blood specimen / Unknown Venipuncture / Unknown 08/10/2024 8:12 AM EDT 08/10/2024 8:12 AM EDT us Ingrid Robert MD LAB BLOOD ORDERABLES Final Resul t [facility] [address] [place] [address], * Comprehensive metabolic panel (03/30/2024 9:18 AM EST) Sodium 138 133 - 145 mmol/L LAB CHEMISTRY METHOD 03/30/2024 1:22 PM [facility] Potassium 4.2 3.5 - 5.5 mmol/L LAB CHEMISTRY METHOD 03/30/2024 1:22 PM [facility] Chloride 105 96 - 110 mmol/L LAB CHEMISTRY METHOD 03/30/2024 1:22 PM [facility] CO2 29 21 - 32 mmol/L LAB CHEMISTRY METHOD 03/30/2024 1:22 PM [facility] Anion Gap 4 3 - 11 LAB CHEMISTRY METHOD 03/30/2024 1:22 PM [facility] Glucose 92 70 - 100 mg/dL LAB CHEMISTRY METHOD 03/30/2024 1:22 PM [facility] BUN 11 5 - 25 mg/dL LAB CHEMISTRY METHOD 03/30/2024 1:22 PM [facility] Creatinine 0.80 0.70 - 1.30 mg/dL LAB CHEMISTRY METHOD 03/30/2024 1:22 PM [facility] eGFR 110 >=60 mL/min/1. 73m2 LAB CHEMISTRY METHOD 03/30/2024 1:22 PM [facility] Comment:Calculation based on the Chronic Kidney Disease Epidemiology Collaboration (CKD-EPI) equation refit without adjustment for race. BUN/Creatinine Ratio 13.8 LAB CHEMISTRY METHOD 03/30/2024 1:22 PM [facility] Calcium 9.7 8.5 - 10.5 mg/dL LAB CHEMISTRY METHOD 03/30/2024 1:22 PM [facility] AST (SGOT) 19 10 - 42 unit/L LAB CHEMISTRY METHOD 03/30/2024 1:22 PM [facility] ALT (SGPT) 44 10 - 60 unit/L LAB CHEMISTRY METHOD 03/30/2024 1:22 PM [facility] Alkaline Phosphatase 73 42 - 121 unit/L LAB CHEMISTRY METHOD 03/30/2024 1:22 PM [facility] Total Protein 7.7 6.0 - 8.0 g/dL LAB CHEMISTRY METHOD 03/30/2024 1:22 PM [facility] Albumin 4.3 3.2 - 5.0 g/dL LAB CHEMISTRY METHOD 03/30/2024 1:22 PM [facility] Total Bilirubin 0.8 0.0 - 1.4 mg/dL LAB CHEMISTRY METHOD 03/30/2024 1:22 PM [facility] Blood Venous blood specimen / Unknown Venipuncture / Unknown 03/30/2024 9:18 AM EST 03/30/2024 9:18 AM EST us Ingrid Robert MD LAB BLOOD ORDERABLES Final Resul t [facility] [place] [facility] [address] [place] [address], [place] [phone] from Last 3 Months or Most Recently Relevant to Health Maintenance Insurance [facility] [employer] Care Teams Bicycle Mechanic Relationship Specialty Start Date End Date Ingrid Robert MD [address] [place] [phone] PCP - General Internal Medicine 02/10/23
--- OUTSIDE RECORDS SUMMARY | 2024-11-22 18:28 | XMS_ITS | Patient Health Record ---
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 Primary Care Provider Unavail able Jourdan Sotelo Unavailable [phone] Allergies No Known Allergies Results Component Value Reference Range Notes Complete Blood Count Auto Di ff Reviewed date:11/18/2024 11:27:42 AM Interpretation: Performing Lab:[facility], [address] [place] [phone] Notes/Report: White Blood Count 8.2 4.8-10.8 X10*3/uL Red Blood Count 4.66 4.60-5.80 X10*6/uL Hemoglobin 15.2 14.0-18.0 g/dl Hematocrit 42.2 42.0-52.0 % Mean Corpuscular Volume 90.6 80.0-98.0 fL Mean Corpuscular Hemoglobin 32.6 27.0-33.0 pg Mean Corpuscular HGB Conc 36.0 31.0-36.0 g/dl Red Cell Distribution Width 12.4 11.0-16.0 % Platelet Count 286 160-400 X10*3/uL Mean Platelet Volume 9.0 9.4-12.4 fL Neutrophils Percent Auto 36.3 45-73 % Imm Gran Pct Auto 0.2 0.0-0.4 % Lymphocytes Percent Auto 46.1 20-40 % Monocytes Percent Auto 10.1 2-11 % Eosinophils Percent Auto 6.2 0-4 % Basophils Percent Auto 1.1 0-2 % NRBC Pct Auto 0.0 0.0-0.2 /100WBC Neutrophils Absolute Auto 3.0 2.0-8.3 x10*3/u L Imm Gran Abs Auto 0.02 0.00-0.03 X10*3/uL Lymphocytes Absolute Auto 3.8 1.2-4.9 X10*3/u L Monocytes Absolute Auto 0.8 0.1-1.2 X10*3/uL Eosinophils Absolute Auto 0.5 0.0-0.4 X10*3/u L Basophils Absolute Auto 0.1 0.0-0.2 X10*3/uL NRBC Abs Auto 0.000 0.0-0.012 X10*3/uL Liver Panel Reviewed date:11/18/2024 11:28:25 AM Interpretation: Performing Lab:[address] [phone] Notes/Report: Bilirubin Total 0.4 0.0-1.0 mg/dL Bilirubin Direct 0.1 0.0-0.5 mg/dL Aspartate Amino Transferase 34 5-37 U/L Alanine Aminotransferase 50 0-40 U/L Total Protein 7.7 6.5-8.0 g/dL Albumin Level 4.5 3.5-5.0 g/dL Alkaline Phosphatase 61 39-117 U/L Alpha Fetoprotein Reviewed date:11/18/2024 11:27:54 AM Interpretation: Performing Lab:[address] [address] Notes/Report: Alpha Fetoprotein 3.8 <6.1 ng/mL This test was performed using the Rachel Keri chemiluminescent method. Values obtained from different assay methods cannot be used interchangeably. AFP levels, regardless of value, should not be interpreted as absolute evidence of the presence or absence of disease. THIS TEST WAS PERFORMED AT: [facility] [employer] [address] [place] [phone] LUCILA CARROLL MD Liver Fibrosis Pnl Reviewed date:11/18/2024 11:28:07 AM Interpretation: Performing Lab:[address] [phone] Notes/Report: Liver Fibrosis Score 0.42 Liver Fibrosis [...] F4 (severe fibrosis) Nec Inflam Act Score 0.23 Nec Inflam Act Grade A0-A1 Nec Inflam Act Interpretation SEE NOTE no activity ActiTest Score (a) Metavir Score a>=0 and a<=0.17 : A0 (no activity) a>0.17 and a<=0.29 : A0-A1 (no activity) a>0.29 and a<=0.36 : A1 (minimal activity) a>0.36 and a<=0.52 : A1-A2 (minimal activity) a>0.52 and a<=0.60 : A2 (significant activity) a>0.60 and a<=0.62 : A2-A3 (significant activity) a>0.62 and a<=1.00 : A3 (severe activity) AVY-Mopir-4-Macroglobulin 344 106-279 mg/dL FIB-Haptoglobin 138 43-212 mg/dL FIB-Apolipoprotein A1 129 94-176 mg/dL FIB-Total Bilirubin 0.4 0.2-1.2 mg/dL FIB-GGT 27 3-95 U/L FIB-ALT 37 9-46 U/L Reference ID [id number] Footnote SEE NOTE The reliability of results is dependent on compliance with the preanalytical and analytical conditions recommended by [employer]. The tests have to be deferred for: [...] The performance characteristics have been determined by [facility]. It has not been cleared or approved by the U.S. Food and Drug Administration. Performance characteristics refer to the analytical performance of the test. Victor, the associated logo, [employer] and all associated [employer] kim are the registered trademarks of [employer]. All third libertarian kim - (R) and (TM) - are the property of their respective owners. (C) 4428-1215 [employer]. All rights reserved. THIS TEST WAS PERFORMED AT: [employer] [facility] [address] [place] [address] BENITO GARCIA MD,PHD,MIRNA Prothrombin Time INR Reviewed date:11/18/2024 11:27:21 AM Interpretation: Performing Lab:[facility], [address] [place] [phone] Notes/Report: Prothrombin Time 11.1 10.9-12.4 SEC INTERNATIONAL NORM RATIO 1.0 0.9-1.1 INTERNATIONAL NORMALIZED RATIO (INR) REFERENCE RANGES Reference Range For patients not on anticoagulant therapy: 0.9 - 1.1 INR ranges for oral anticoagulant therapy: For prevention and treatment of venous thrombosis and pulmonary embolism: 2.0 - 3.0 For acute myocardial infarction with aspirin therapy: 2.0 - 3.0 For acute myocardial infarction without aspirin therapy: 3.0 - 4.0 For patients with mechanical prosthetic heart valves: 2.5 - 3.5 Reason For Referral No Information Medications Medication [...] Problem Status W/U Status Risk Notes Problem 208351708 Colon cancer screening (Z12.11) Active confirmed Problem 813458945 Elevated liver function tests (R79.89) Active confirmed Problem 105502875 Elevated liver enzymes (R74.8) Active confirmed Problem 688941510 Fatty liver (K76.0) Active confirmed Problem 653618856 Elevated liver function tests (R94.5) Active confirmed Problem Hepatic fibrosis (89759002) Liver fibrosis (K74.00) Active confirmed Problem 27509221 Fibrosis of liver (K74.00) Active confirmed Vital Signs Temperature 98.6 degrees Fahrenheit 11/02/2024 Blood pressure diastolic 01 mm Hg 11/02/2024 Height 65 in 11/02/2024 Blood pressure systolic 001 mm Hg 11/02/2024 Weight 173 lbs 11/02/2024 BMI 28.79 kg/m2 11/02/2024 Encounters Encounter Location Date Provider Diagnosis [facility] [address] [place] [address] 11/02/2024 Jourdan Sotelo Liver fibrosis K74.00 ; Fatty liver K76.0 ; Elevated liver function tests R94.5 and Colon cancer screening Z12.11 Assessments Encounter Date Diagnosis (ICD Code) Assessment [...] Test Test Name Order Date LIVER PROFILE 11/02/2024 LIVER PROFILE 09/29/2021 LIVER PROFILE 02/04/2015 LIVER PROFILE 03/04/2022 LIVER PROFILE 03/14/2022 LIVER PROFILE 02/22/2015 LIVER PROFILE 05/04/2019 LIVER PROFILE 11/05/2022 LIVER PROFILE 04/11/2020 LIVER PROFILE 05/15/2019 LIVER PROFILE 11/04/2023 LIVER PROFILE 07/27/2021 LIVER PROFILE 12/07/2019 LIVER PROFILE 06/04/2021 LIVER PROFILE 04/22/2021 CBC w DIFF 06/04/2021 CBC w DIFF 04/22/2021 CBC w DIFF 11/02/2024 CBC w DIFF 11/05/2022 CBC w DIFF 07/27/2021 CBC w DIFF 12/07/2019 PROTHROMBIN TIME (PT, INR) 12/07/2019 PROTHROMBIN TIME (PT, INR) 06/04/2021 PARTIAL THROMBOPLASTIN TIME (PTT) 2021 ALPHA-FETOPROTEIN,TUMOR MARKER 5 ALPHA-FETOPROTEIN,TUMOR MARKER 4 ALPHA-FETOPROTEIN,TUMOR MARKER 3 US LIVER BIOPSY CORE GUIDE 06/04/2021 HCV LIVER FIBROSIS, FIBRO TEST 2 HCV LIVER FIBROSIS, FIBRO TEST 0 US ABDOMEN COMP WITH ELASTOGRAPHY 2021 Prothrombin Time INR 07/27/2021 Prothrombin Time INR 04/22/2021 Prothrombin Time INR 11/02/2024 Liver Fibrosis Pnl 11/05/2022 Liver Fibrosis Pnl 11/02/2024 US abdomen comp w elastography 5 US abdomen comp w elastography 3 Future Test Test Name Order Date COLONOSCOPY 03/04/2022 Next Appt Details Provider Name:Jourdan Sotelo , 11/01/2025 01:00:00 PM, [address], [address], [place], [address], Insurance Providers Payer Name Payer Address Payer Phone Subscriber Number Group Number Insured Name Patient Relationship to Insured Coverage Start Date Coverage End Date [facility] [address] [place] [address] [id number] LEONEL NIX Self - patient is the insured Medical (General) History Medical History History ICD Code EGD [id number] HH- no esophagitis, n o [facility] Fatty [...]
== END 2024-11-22 14:26 | disposition home or self-care (01) ==
LOC: HO.HUSH 13:59
PROVIDERS: PCP Internal Medicine; Visit Provider Urology
DX: N20.0 Calculus of kidney (principal); R30.0 Dysuria

== ENCOUNTER 2024-12-28 07:54 | Outpatient (REF) | payer OTHER, SELFPAY ==
--- NOTE | ~2024-12-28 | US_ITS ---
EXAMINATION: US COMPLETE ABDOMEN WITH LIVER ELASTOGRAPHY CLINICAL INFORMATION: LIVER FIBROSIS,FATTY LIVER, ELEVATED LIVER FUNCTION TEST COMPARISON: Previous abdominal ultrasounds most recent November 2022, renal ultrasound most recent July 2024 CT of the abdomen and pelvis November 2021. TECHNIQUE: Real-time imaging of the abdominal viscera. Noninvasive ultrasound liver fibrosis assessment is performed using Marina ElastPQ point quantification shear wave elastography (pSWE) with a C5-2 MHz transducer. Multiple elastography samples are obtained. FINDINGS: PANCREAS: The visualized pancreatic head and body are normal in appearance. The remainder of the pancreas is obscured from visualization by the overlying bowel gas. ABDOMINAL AORTA: No aortic aneurysm is seen. INFERIOR VENA CAVA: Visualized portions are normal. LIVER: The liver demonstrates normal size and contour. Liver echotexture is increased. Low-attenuation adjacent to the gallbladder, characteristic location of focal fatty sparing. No focal lesion or intrahepatic biliary duct dilatation. The right lobe measures 16 cm in length. The left lobe measures 10 cm in length. Portal flow is normal/hepatopedal Shear wave liver elastography median stiffness is 1.6 m/s (reference: normal median stiffness is 1.3 m/s or less). IQR/median stiffness to assess sampling precision is 0.8 (reference: good quality data set is IQR/median stiffness of 0.15 or less). GALLBLADDER: Small echogenic densities adjacent to the gallbladder wall that do not move or shadow suggestive of small gallbladder wall polyps. The largest measures 5 x 3 x 4 mm. These are newly appreciated compared to prior exams. There is dependent increased attenuation in the gallbladder probably representing sludge. COMMON BILE DUCT: Normal in caliber measuring 0.4 cm in diameter. RIGHT KIDNEY: No hydronephrosis. No renal calculi or focal parenchymal lesions. The kidney measures 13 cm in maximum dimension. LEFT KIDNEY: No hydronephrosis. 2 echogenic densities with twinkle artifact measuring 4 x 3 x 4 mm in the midpole and 6 x 4 x 6 mm in the lower pole suggestive of stones. No focal parenchymal lesions. The kidney measures 12 cm in maximum dimension. SPLEEN: Unremarkable. The spleen measures 10 cm in maximum dimension. FREE FLUID: None seen. US/US abdomen comp w elastography IMPRESSION: 1. Impression: Echogenic liver suggestive of hepatocellular disease. This most commonly represents fatty infiltration. No evidence of cirrhosis or focal liver lesion. Newly appreciated echogenic densities adjacent to the gallbladder wall most suggestive of small gallbladder wall polyps. These measure up to 5 mm in size. Annual ultrasound follow-up of gallbladder wall polyps larger than 6 mm normally recommended however even this is a new finding, would recommend ultrasound follow-up in 6-12 months. Small left renal stones. No hydronephrosis. 2. Liver elastography: In the absence of other known clinical signs, measurements rule out compensated advanced chronic liver disease. If there are known clinical signs, further testing may be needed for confirmation. Adequately sampling. REFERENCE: Society of Radiologists in Ultrasound Liver Stiffness Thresholds (2020): LIVER STIFFNESS THRESHOLDS: *Liver Stiffness equal or less than 1.3 m/s: High probability of being normal. *Liver Stiffness less than 1.7 m/s: In the absence of other known clinical signs, rules out compensated advanced chronic liver disease. *Liver Stiffness 1.7-2.1 m/s: Suggestive of compensated advanced chronic liver disease but need further test for confirmation. *Liver Stiffness over 2.1 m/s: Rules in compensated advanced chronic liver disease. *Liver Stiffness over 2.4 m/s: Suggestive of clinically significant portal hypertension. QUALITY OF DATA SET: *IQR/Median value equal or less than 0.15 implies a quality data set. *IQR/Median value over 0.15 implies a poor quality data set. SIGNIFICANT CHANGE FROM PRIOR EXAM: Significant change if liver stiffness measurement is 10% or greater from prior exam. OTHER CONSIDERATIONS: The stage of liver fibrosis may be overestimated in the setting of acute hepatitis, liver inflammation, elevated liver function tests, hepatic vascular congestion, obstructive cholestasis, non-fasting state, and infiltrative diseases such as amyloidosis and lymphoma. In some patients with NAFLD, the liver stiffness thresholds for compensated advanced chronic liver disease may be lower. In causes other than viral hepatitis and NAFLD, liver stiffness thresholds are not well established. Electronically signed by: Karine Levy MD 12/28/2024 09:23 AM EDT
--- OUTSIDE RECORDS SUMMARY | 2024-12-28 07:56 | XMS_ITS | Patient Health Record ---
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 Primary Care Provider Unavail able Jourdan Sotelo Unavailable [phone] Allergies No Known Allergies Results Component Value Reference Range Notes Complete Blood Count Auto Di ff Reviewed date:11/18/2024 11:27:42 AM Interpretation: Performing Lab:[facility], [address] [place] [id number] Notes/Report: White Blood Count 8.2 4.8-10.8 X10*3/uL [...] Panel Reviewed date:11/18/2024 11:28:25 AM Interpretation: Performing Lab:[address] [address] Notes/Report: Bilirubin Total 0.4 0.0-1.0 mg/dL Bilirubin Direct 0.1 0.0-0.5 mg/dL Aspartate Amino Transferase 34 5-37 U/L Alanine Aminotransferase 50 0-40 U/L Total Protein 7.7 6.5-8.0 g/dL Albumin Level 4.5 3.5-5.0 g/dL Alkaline Phosphatase 61 39-117 U/L Alpha Fetoprotein Reviewed date:11/18/2024 11:27:54 AM Interpretation: Performing Lab:[address] [address] Notes/Report: Alpha Fetoprotein 3.8 <6.1 ng/mL This test was performed using the Rachel Keri chemiluminescent method. Values obtained from different assay methods cannot be used interchangeably. AFP levels, regardless of value, should not be interpreted as absolute evidence of the presence or absence of disease. THIS TEST WAS PERFORMED AT: [facility] [address] [place] [phone] LUCILA CARROLL MD Liver Fibrosis Pnl Reviewed date:11/18/2024 11:28:07 AM Interpretation: Performing Lab:[address] [address] Notes/Report: Liver Fibrosis Score 0.42 Liver Fibrosis [...] a>0.62 and a<=1.00 : A3 (severe activity) UTP-Nxjez-8-Macroglobulin 344 106-279 mg/dL FIB-Haptoglobin 138 43-212 mg/dL FIB-Apolipoprotein A1 129 94-176 mg/dL FIB-Total Bilirubin 0.4 0.2-1.2 mg/dL FIB-GGT 27 3-95 U/L FIB-ALT 37 9-46 U/L Reference ID [id number] Footnote SEE NOTE The reliability of results [...] The performance characteristics have been determined by [facility]. It has not been cleared or approved by the U.S. Food and Drug Administration. Performance characteristics refer to the analytical performance of the test. [email or web address], the associated logo, [employer] and all associated [employer] kim are the registered trademarks of [employer]. All third republican kim - (R) and (TM) - are the property of their respective owners. (C) [id number] [employer] All rights reserved. THIS TEST WAS PERFORMED AT: [employer] [facility] [address] [place] [address] BENITO GARCIA MD,PHD,MIRNA Prothrombin Time INR Reviewed date:11/18/2024 11:27:21 AM Interpretation: Performing Lab:[facility], [address] [place] [id number] Notes/Report: Prothrombin Time 11.1 10.9-12.4 SEC INTERNATIONAL [...] 50 MG 1 tablet Orally Once a day; Duration: 90 days Active Ursodiol 500 MG TAKE 2 TABLETS EVERY MORNING AND 1 EVERY EVENING ORALLY TWICE A DAY; Duration: 90 Active Motrin IB 200 MG 1 [...] Problem Status W/U Status Risk Notes Problem Colon cancer screening (187572880) Colon cancer screening (Z12.11) Active confirmed Problem Elevated liver enzymes level (170519442) Elevated liver function tests (R79.89) Active confirmed Problem Elevated liver enzymes level (211433510) Elevated liver enzymes (R74.8) Active confirmed Problem Fatty liver (570279877) Fatty liver (K76.0) Active confirmed Problem Elevated liver enzymes level (496262982) Elevated liver function tests (R94.5) Active confirmed Problem Hepatic fibrosis (disorder) (67123483) Liver fibrosis (K74.00) Active confirmed Problem Fibrosis of liver (11910672) Fibrosis of liver (K74.00) Active confirmed Vital Signs Temperature 98.6 degrees Fahrenheit 11/02/2024 Blood pressure diastolic 01 mm Hg 11/02/2024 Height 65 in 11/02/2024 Blood pressure systolic 001 mm Hg 11/02/2024 Weight 173 lbs 11/02/2024 BMI 28.79 kg/m2 11/02/2024 Encounters Encounter Location Date Provider Diagnosis [facility] [address] [place] [address] 11/02/2024 Jourdan Sotelo Liver fibrosis K74.00 ; [...] THROMBOPLASTIN TIME (PTT) 2021 ALPHA-FETOPROTEIN,TUMOR MARKER 3 ALPHA-FETOPROTEIN,TUMOR MARKER 5 ALPHA-FETOPROTEIN,TUMOR MARKER 4 US LIVER BIOPSY CORE GUIDE 06/04/2021 HCV [...] COLONOSCOPY 03/04/2022 Next Appt Details Provider Name:Jourdan Karly Sotelo , 11/01/2025 01:00:00 PM, [address] [place] [address], [address], [place], [address], Insurance Providers Payer Name Payer Address Payer Phone Subscriber Number Group Number Insured Name Patient Relationship to Insured Coverage Start Date Coverage End Date [facility] [place] [address] [phone] [id number] LEONEL NIX Self - patient is the insured Medical (General) History Medical History History ICD Code EGD [id number] HH- no esophagitis, n o [facility]'s Fatty liver- biopsy in 1999- fatty liver and mild inflammation-no fibrosis- neg.abdominal U/S in 2010- -stopped Jose before 2013, but resumed in early 2019 Asthma Denies [place],DM,CVA,renal disease UTI's Liver biopsy in May revealed evidence of the fatty liver, inflammation, and some fibrosis with early bridging. There was no cirrhosis. Hyperlipidemia Kidney stones Negative screening colonoscopy in 03/2022 Hypertension Anxiety Surgical History Surgery Date(Month/Year) Left knee arthroscopy 08/2018
--- OUTSIDE RECORDS SUMMARY | 2024-12-28 07:56 | XMS_ITS | Clinical Summary ---
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 Immunizations Immunization Administration Dates Next Due COVID-19 (Moderna/Spikevax) 14yo [...] EXTRACTION OTHER SURGICAL HISTORY 2019 Left PROCEDURE: SD ARTHROSCOPY KNEE MENISCAL TRNSPLJ MED/LAT Medical History [...] care for your loved ones. For example, child & adolescent psychiatrist or elderly care for an older adult? [...] Date Recorded What is your living situation? Unrecognized valu e 08/09/2024 Sex and Gender Information Value Date [...] 8:30 AM EST Office Visit Adult Medicine [address] [address] Marii Cruz PA [address] [place] [id number] Health Maintenance Due Date Last Done Comments Colorectal Cancer Screening: Colonoscopy 1977 Hepatitis B Vaccines (1 of 3 - 19+ 3-dose series) 02/19/1996 HIV Screening 02/06/2022 Hepatitis C Screening 02/06/2022 [...] LAB CHEMISTRY METHOD 08/10/2024 10:45 AM EDT [facility] Triglycerides 140 0 - 150 mg/dL LAB CHEMISTRY METHOD 08/10/2024 10:45 AM EDT [facility] HDL 41 >=40 mg/dL LAB CHEMISTRY METHOD 08/10/2024 10:45 AM EDT [facility] LDL Calculated 146(H) 0 - 100 mg/dL LAB CHEMISTRY METHOD 08/10/2024 10:45 AM EDT [facility] VLDL Cholesterol Humberto 28 mg/dL LAB CHEMISTRY METHOD 08/10/2024 10:45 AM EDT [facility] Non HDL Chol. (LDL+VLDL) 174(H) <145 mg/dL LAB CHEMISTRY METHOD 08/10/2024 10:45 AM EDT [facility] Chol/HDL Ratio 5.2(H) 0.0 - 4.4 LAB CHEMISTRY METHOD 08/10/2024 10:45 AM T [facility] Blood Venous blood specimen / Unknown Venipuncture / Unknown 08/10/2024 8:12 AM EDT 08/10/2024 8:12 AM EDT us Ingrid Robert MD LAB BLOOD ORDERABLES Final Resul t [facility] [address] [place] [address], * Comprehensive metabolic panel (03/30/2024 9:18 AM [...] ORDERABLES Final Resul t [facility] [place] [facility] [address] [place] [address], [place] [phone] from Last 3 Months or Most Recently Relevant to Health Maintenance Insurance [facility] [employer] Care Teams Fax Machine Operator Relationship Specialty Start Date End Date Ingrid Robert MD [address] [place] [phone] PCP - General Internal Medicine 02/10/23
== END 2024-12-28 07:55 | disposition home or self-care (01) ==
LOC: HO.US 07:54
PROVIDERS: PCP Internal Medicine; Visit Provider Internal Medicine
DX: K74.00 Hepatic fibrosis, unspecified (principal); K76.0 Fatty (change of) liver, not elsewhere classified
CPT/HCPCS: 76700; 76981

== ENCOUNTER → 2024-12-28 07:55 | Outpatient (BNV) | payer OTHER, SELFPAY | PROVIDERS: PCP Internal Medicine; Visit Provider Radiology Diagnostic Radiology | DX: K74.00 Hepatic fibrosis, unspecified (principal) | CPT/HCPCS: 76700 ==